=== PATIENT | female | born 1985 | race Hispanic/Latino ===

== ENCOUNTER 2019-01-11 08:52 | Emergency (ER) | payer BC, OTHER ==
[2019-01-11] MEDS ORDERED: NA CHLORIDE 0.9% 1,000 ML ONE (09:35)
[2019-01-11] MEDS ORDERED: MORPHINE 4 MG/ML SYR ONE ×3 (09:35→12:17)
[2019-01-11] MEDS ORDERED: ONDANSETRON 4 MG/2 ML VIAL ONE (09:35)
[2019-01-11 10:22] LABS: Absolute Lymphocytes (CBC) 0.9 K/uL (0.7-4.9); Basophils % 0.8 % (0-1.3); Hematocrit 38.7 % (36.0-45.0); Lymphocytes % 9.8 % (15.3-44.8); MPV 8.1 fL (7.6-11.3); RBC Red Blood Cell Count 4.29 M/uL (3.86-4.86)
[2019-01-11 10:41] LABS: Albumin 3.4 g/dL (3.4-5.0); Bilirubin Direct 0.2 mg/dL (0-0.2); Bilirubin Total 0.6 mg/dL (0.2-1.0); Potassium 3.6 mmol/L (3.5-5.1); Protein, Total 7.5 g/dL (6.4-8.2)
[2019-01-11 10:44] LABS: Urine Blood 2+ (NEG); Urine Glucose NEGATIVE (NEG); Urine Protein 3+ (NEG)
[2019-01-11 11:03] LABS: Urine RBC 20-50 /HPF (NONE SEEN)
[2019-01-11 11:04] LABS: Urine Bacteria LOADED /HPF (<20); Urine Culture Reflex Order REFLEXED
--- NOTE | 2019-01-11 11:23 | RAD REPORT ---
EXAM DESCRIPTION: CT - Abdomen Pelvis W Contrast - 01/11/2019 11:00 am CLINICAL HISTORY: FLANK PAIN, right-side with surgical history of pelvic exenteration, hysterectomy with colostomy and urostomy placement COMPARISON: None. TECHNIQUE: Biphasic, helical CT imaging of the abdomen and pelvis was performed following 100 ml non -ionic IV contrast. No oral contrast. All CT scans are performed using dose optimization technique as appropriate and may include automated exposure control or mA/KV adjustment according to patient size. FINDINGS: No suspicious findings in the lung bases. The liver, spleen, and pancreas show no suspicious findings. Cholecystectomy clips are present. No bi liary tree dilatation. No adrenal abnormality. Dilatation of the left renal pelvis and calices noted with mild dilatation of the ureter down to the ureterostomy anastomosis to bowel. More pronounced dilatation of the right renal pelvis is present wi th slightly greater dilatation of the right ureter down to the small bowel anastomosis. Coreas of the right-side ureters are enhancing and function of the right renal parenchyma is delayed relative to th e left. There is a nonobstructing 7 mm calculus in the left kidney. No obstructing calculi seen. No p arenchymal enhancement abnormality to indicate pyelonephritis. Bladder is absent. No gastric dilatation or wall thickening. No dilatation of large or small bowel. There is a large peristomal hernia at the right side ostomy site. This contains cecum and ascending c olon as well as the terminal ileum. No wall thickening or edema. A few small mesenteric lymph nodes a re present. There is a small peristomal hernia at the left abdomen colostomy site. This is approximat constance 5 cm in diameter and contains a loop of small bowel. No wall thickening or edema. No mass or bul ky lymphadenopathy. Pelvic exenteration changes are present along the floor the pelvis. Approximately 6 x 3 centimeter ar ea of soft tissue is present in the presacral region. Baseline for the patient is unknown. This can b e compared with any prior studies or monitored on follow-up studies is warranted on treatment protoco l. No comparison is available at this facility. No suspicious bony findings. IMPRESSION: No pyelonephritis findings seen. However, patient has asymmetric renal function, delayed on the right, with right greater than left hydronephrosis and hydroureter. The right renal pelvis and right ureter show enhancement of the coreas and could represent ureteritis. Hydronephrosis of each kidney may reflect stricture at the ureter small bowel anastomosis. Large peristomal hernia 10 cm in size at the urostomy site. This contains cecum and ascending colon i s well is terminal ileum. No active bowel process seen. Smaller 5 centimeter peristomal hernia at the left abdomen colostomy site. This contains a loop of sm all bowel. No active bowel abnormality seen. Small right lower quadrant mesenteric lymph nodes near the ileocecal valve. Presacral 6 x 3 mm soft tissue mass. This may all be postsurgical scarring. Ongoing monitoring is nee ded or comparison can be made with prior outside CT imaging to assure no residual or recurrent mass.
[2019-01-11] MEDS ORDERED: CEFTRIAXONE/SWI 1gm 1 GM/10 ML SYR ONE (11:25)
--- NOTE | 2019-01-11 12:16 | ER ---
Nurse's Notes [facility] Name: Kaila Suarez Age: 33 yrs Sex: Female : 1985 Arrival Date: 01/11/2019 Time: 08:59 Bed 7 Private MD: Diagnosis: Urinary tract infection, site not specified-Ureteritis Presentation: 01/11 09:24 Presenting complaint: Patient states: Right low back pain began this morning, urostomy jl7 has had an odor for a few weeks. Transition of care: patient was not received from another setting of care. Onset of symptoms was January 11, 2019. Risk Assessment: Do you want to hurt yourself or someone else? Patient reports no desire to harm self or others. Initial Sepsis Screen: Does the patient meet any 2 criteria? No. Patient's initial sepsis screen is negative. Does the patient have a suspected source of infection? No. Patient's initial sepsis screen is negative. Care prior to arrival: None. 09:24 Method Of Arrival: Ambulatory [facility] 09:24 Acuity: LIBORIO 3 jl7 Triage Assessment: 09:29 General: Appears in no apparent distress. uncomfortable, Behavior is cooperative, jl7 appropriate for age, anxious, crying. Pain: Complains of pain in right low back Pain does not radiate. Pain currently is 6 out of 10 on a pain scale. Quality of pain is described as aching, Pain began 1 hour ago. Is continuous. Neuro: Level of Consciousness is awake, alert, obeys commands, Oriented to person, place, time, situation. Cardiovascular: Patient's skin is warm and dry. Respiratory: Airway is patent Respiratory effort is even, unlabored, Respiratory pattern is regular, symmetrical. GI: Colostomy site is clean and dry. Ostomy appliance is intact. : urostomy noted, appliance in place. Derm: Skin is pink, warm \T\ dry. Musculoskeletal: Range of motion: intact in all extremities. 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 - Social history:: Smoking status: Patient/guardian denies using tobacco. - Ebola Screening: : No symptoms or risks identified at this time. Screenin:08 Abuse screen: Denies threats or abuse. Denies injuries from another. Nutritional jl7 screening: No deficits noted. Tuberculosis screening: No symptoms or risk factors identified. Fall Risk IV access (20 points). Total Murphy Fall Scale indicates No Risk (0-24 pts). Assessment: 09:30 General: See triage assessment. jl7 10:25 Reassessment: Pt reports slight decrease in pain, rated 5/10, ERP notified, see MAR for jl7 orders. 10:34 Reassessment: Pt changed out urostomy bag, clean catch urine sample obtained from new jl7 bag. 12:10 Reassessment: Patient appears in no apparent distress at this time. Patient and/or jl7 family updated on plan of care and expected duration. Pain level reassessed. Patient is alert, oriented x 3, equal unlabored respirations, skin warm/dry/pink. 12:14 Reassessment: ERP at bedside discussing results and POC. jl7 Vital Signs: 09:29 BP 146 / 83; Pulse 69; Resp 16 S; Temp 97.8(TE); Pulse Ox 97% on R/A; Weight 86.18 kg jl7 (R); Pain 6/10; 10:08 BP 117 / 67; Pulse 59; Resp 16 S; Pulse Ox 100% on R/A; jl7 10:20 BP 122 / 69; Pulse 61; Resp 16 S; Pulse Ox 100% on R/A; Pain 5/10; jl7 10:32 Pain 5/10; jl7 10:40 Pain 3/10; jl7 12:10 BP 115 / 64; Pulse 56; Resp 16 S; Pulse Ox 96% on R/A; jl7 ED Course: 08:59 Patient arrived in ED. mr 09:13 Gómez Hung, LAMONT is Primary Nurse. jl7 09:16 Hugh Nettles NP is PHCP. pm1 09:16 Luis Alberto Bauman MD is Attending Physician. pm1 09:27 Triage completed. jl7 09:29 Arm band placed on right wrist. jl7 09:50 Missed attempt(s): 22 gauge in left antecubital area. jb1 10:07 Initial lab(s) drawn, by me, sent to lab. Inserted saline lock: 22 gauge in right upper jl7 arm, using aseptic technique. Blood collected. 10:08 Patient has correct armband on for positive identification. Bed in low position. Call jl7 light in reach. Side rails up X 1. Pulse ox on. NIBP on. 10:35 Urine collected: clean catch specimen, cloudy, sediment noted. jl7 11:02 CT Abd/Pelvis - IV Contrast Only In Process Unspecified. EDMS 13:02 No provider procedures requiring assistance completed. IV discontinued, intact, iw bleeding controlled, No redness/swelling at site. Pressure dressing applied. Administered Medications: 10:05 Drug: Zofran 4 mg Route: IVP; Site: right upper arm; jl7 10:32 Follow up: Response: No adverse reaction; Nausea is decreased jl7 10:05 Drug: NS 0.9% 1000 ml Route: IV; Rate: 1000 ml; Site: right upper arm; jl7 11:30 Follow up: IV Status: Completed infusion iw 10:07 Drug: morphine 4 mg Route: IVP; Site: right upper arm; jl7 10:32 Follow up: Pain 5/10 Adult; Response: No adverse reaction; Pain is decreased jl7 10:25 Drug: morphine 4 mg Route: IVP; Site: right upper arm; jl7 10:40 Follow up: Pain 3/10 Adult; Response: No adverse reaction; Pain is decreased jl7 11:28 Drug: Rocephin 1 grams Route: IV; Rate: calculated rate; Site: right upper arm; jl7 11:31 Follow up: Response: No adverse reaction; IV Status: Completed infusion jl7 12:21 Drug: morphine 4 mg Route: IVP; Site: right upper arm; jl7 Outcome: 12:16 Discharge ordered by MD. pm1 13:02 Discharged to home ambulatory, with family. iw 13:02 Condition: good 13:02 Discharge instructions given to patient, family, Instructed on discharge instructions, follow up and referral plans. Demonstrated understanding of instructions, follow-up care, Prescriptions given X 2. 13:02 Patient left the ED. iw Addendum: 01/13/2019 07:39 Addendum: Culture Results: Positive urine culture. No further action required. Bacteria e b sensitive to prescribed antibiotic. Signatures: Dispatcher [employer] Chris Mclean jb1 Ronald, Shelbie mr Marsha Medeiros, RN RN Hugh Puentes NP HARD METALS ENGRAVER HAND pm1 Gómez Hung RN RN jl7 Marilu Lemus
--- NOTE | 2019-01-11 12:17 | EDPHYS ---
Physician Documentation [facility] Name: Kaila Suarez Age: 33 yrs Sex: Female : 1985 Arrival Date: 01/11/2019 Time: 08:59 Bed 7 Private MD: LOKI Physician Luis Alberto Bauman HPI: 01/11 09:49 This 33 yrs old Female presents to ER via Ambulatory with complaints of Right pm1 Low Back Pain. 09:49 The patient presents with pain that is acute, with no known mechanism of injury. The pm1 symptoms are located in the right low back. Onset: The symptoms/episode began/occurred this morning. The pain does not radiate. Associated signs and symptoms: The patient has no apparent associated signs or symptoms, Pertinent negatives: abdominal pain, fever, headache, nausea, numbness, tingling, vomiting, diarrhea. The problem was sustained from unknown cause, Urine from urostomy tube with foul odor for 2 weeks. Modifying factors: The patient symptoms are alleviated by nothing, the patient symptoms are aggravated by nothing. The patient has not recently seen a physician, and does not have an established primary care provider, only sees oncologist at [facility]. Last seen 3 months ago. 09:49 Patient with history of cervical cancer resulting in total hysterectomy, cystectomy, pm1 urostomy, and colostomy. 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 - Social history:: Smoking status: Patient/guardian denies using tobacco. - Ebola Screening: : No symptoms or risks identified at this time. ROS: 09:49 Constitutional: Negative for fever, chills, and weight loss, Eyes: Negative for injury, pm1 pain, redness, and discharge, ENT: Negative for injury, pain, and discharge, Neck: Negative for injury, pain, and swelling, Cardiovascular: Negative for chest pain, palpitations, and edema, Respiratory: Negative for shortness of breath, cough, wheezing, and pleuritic chest pain, Abdomen/GI: Negative for abdominal pain, nausea, vomiting, diarrhea, and constipation. 09:49 : Negative for injury, bleeding, discharge, and swelling, MS/Extremity: Negative for injury and deformity, Skin: Negative for injury, rash, and discoloration, Neuro: Negative for headache, weakness, numbness, tingling, and seizure. 09:49 Back: Positive for flank pain, on the right. Exam: 09:49 Constitutional: This is a well developed, well nourished patient who is awake, alert, pm1 and in no acute distress. Head/Face: Normocephalic, atraumatic. Neck: Trachea midline, no thyromegaly or masses palpated, and no cervical lymphadenopathy. Supple, full range of motion without nuchal rigidity, or vertebral point tenderness. No Meningismus. Chest/axilla: Normal chest wall appearance and motion. Nontender with no deformity. No lesions are appreciated. Cardiovascular: Regular rate and rhythm with a normal S1 and S2. No gallops, murmurs, or rubs. Normal PMI, no JVD. No pulse deficits. Respiratory: Lungs have equal breath sounds bilaterally, clear to auscultation and percussion. No rales, rhonchi or wheezes noted. No increased work of breathing, no retractions or nasal flaring. 09:49 Skin: Warm, dry with normal turgor. Normal color with no rashes, no lesions, and no evidence of cellulitis. MS/ Extremity: Pulses equal, no cyanosis. Neurovascular intact. Full, normal range of motion. 09:49 Abdomen/GI: Inspection: abdomen appears normal, Bowel sounds: normal, Palpation: abdomen is soft and non-tender. 09:49 Back: pain, that is mild, of the right low back, normal spinal alignment noted. 09:49 Neuro: Orientation: is normal, Motor: is normal, moves all fours. Vital Signs: 09:29 BP 146 / 83; Pulse 69; Resp 16 S; Temp 97.8(TE); Pulse Ox 97% on R/A; Weight 86.18 kg jl7 (R); Pain 6/10; 10:08 BP 117 / 67; Pulse 59; Resp 16 S; Pulse Ox 100% on R/A; jl7 10:20 BP 122 / 69; Pulse 61; Resp 16 S; Pulse Ox 100% on R/A; Pain 5/10; jl7 10:32 Pain 5/10; jl7 10:40 Pain 3/10; jl7 12:10 BP 115 / 64; Pulse 56; Resp 16 S; Pulse Ox 96% on R/A; jl7 MDM: 09:16 Patient medically screened. pm1 09:54 Data reviewed: vital signs. Data interpreted: Pulse oximetry: on room air is 97 %. pm1 Interpretation: normal. 12:14 Counseling: I had a detailed discussion with the patient and/or guardian regarding: the pm1 historical points, exam findings, and any diagnostic results supporting the discharge/admit diagnosis, lab results, radiology results, the need for outpatient follow up, to return to the emergency department if symptoms worsen or persist or if there are any questions or concerns that arise at home. 01/11 09:24 Order name: Basic Metabolic Panel; Complete Time: 11:03 pm1 01/11 09:24 Order name: CBC with Diff; Complete Time: 10:28 pm1 01/11 09:24 Order name: Creatinine for Radiology; Complete Time: 11:03 pm1 01/11 09:24 Order name: Hepatic Function; Complete Time: 11:03 pm1 01/11 09:24 Order name: Lipase; Complete Time: 11:03 pm1 01/11 09:24 Order name: Urine Microscopic Only; Complete Time: 11:15 pm1 01/11 09:24 Order name: CT Abd/Pelvis - IV Contrast Only; Complete Time: 11:34 pm1 01/11 10:33 Order name: Urine Dipstick--Ancillary (enter results); Complete Time: 11:03 bd 01/11 11:07 Order name: Urine Culture EDMS 01/11 09:24 Order name: IV Saline Lock; Complete Time: 10:09 pm1 01/11 09:24 Order name: Labs collected and sent; Complete Time: 10:09 pm1 01/11 09:24 Order name: Urine Dipstick-Ancillary (obtain specimen); Complete Time: 10:31 pm1 Administered Medications: 10:05 Drug: Zofran 4 mg Route: IVP; Site: right upper arm; jl7 10:32 Follow up: Response: No adverse reaction; Nausea is decreased jl7 10:05 Drug: NS 0.9% 1000 ml Route: IV; Rate: 1000 ml; Site: right upper arm; jl7 11:30 Follow up: IV Status: Completed infusion iw 10:07 Drug: morphine 4 mg Route: IVP; Site: right upper arm; jl7 10:32 Follow up: Pain 5/10 Adult; Response: No adverse reaction; Pain is decreased jl7 10:25 Drug: morphine 4 mg Route: IVP; Site: right upper arm; jl7 10:40 Follow up: Pain 3/10 Adult; Response: No adverse reaction; Pain is decreased jl7 11:28 Drug: Rocephin 1 grams Route: IV; Rate: calculated rate; Site: right upper arm; jl7 11:31 Follow up: Response: No adverse reaction; IV Status: Completed infusion jl7 12:21 Drug: morphine 4 mg Route: IVP; Site: right upper arm; jl7 Disposition: 18:29 Co-signature as Attending Physician, Luis Alberto Bauman MD Did not see or evaluate patient. ps1 Chart signed for administrative purposes. Not an endorsement of care provided. . Disposition: 01/11/19 12:16 Discharged to Home. Impression: Urinary tract infection, site not specified - Ureteritis. - Condition is Stable. - Discharge Instructions: Urinary Tract Infection, Adult. - Prescriptions for Zofran 4 mg Oral Tablet - take 1 tablet by ORAL route every 8 hours As needed; 20 tablet. Tramadol 50 mg Oral Tablet - take 1 tablet by ORAL route every 8 hours As needed as needed; 12 tablet. Bactrim DS 800- 160 mg Oral Tablet - take 1 tablet by ORAL route every 12 hours for 10 days; 20 tablet. - Work release form, Family Work Release, Medication Reconciliation Form, Thank You Letter, Antibiotic Education, Prescription Opioid Use form. - Follow up: Emergency Department; When: As needed; Reason: Worsening of condition. Follow up: Private Physician; When: 2 - 3 days; Reason: Recheck today's complaints, Continuance of care, Re-evaluation by your physician. - Problem is new. - Symptoms have improved. Signatures: Dispatcher [employer] EDMS Marsha Medeiros RN RN iw Hugh Nettles NP MATERIAL PREPARATION WORKER pm1 Gómez Hung RN RN jl7 Singer, Phillip, MD MD ps1 Corrections: (The following items were deleted from the chart) 13:02 12:16 01/11/2019 12:16 Discharged to Home. Impression: Urinary tract infection, site iw not specified - Ureteritis. Condition is Stable. Forms are Medication Reconciliation Form, Thank You Letter, Antibiotic Education, Prescription Opioid Use. Follow up: Emergency Department; When: As needed; Reason: Worsening of condition. Follow up: Private Physician; When: 2 - 3 days; Reason: Recheck today's complaints, Continuance of care, Re-evaluation by your physician. Problem is new. Symptoms have improved. pm1
[2019-01-11 13:21] VITALS: TEMP 97.8
[2019-01-11 13:28] VITALS: BP 115/64; O2SAT 96
== END 2019-01-11 13:02 | disposition home or self-care (01) ==
LOC: ER 08:52
DX: N39.0 Urinary tract infection, site not specified (principal); N28.89 Other specified disorders of kidney and ureter; Z85.41 Personal history of malignant neoplasm of cervix uteri; Z88.5 Allergy status to narcotic agent
CPT/HCPCS: 96361; 87088; 85025; 87086; 80048; 36415; 80076; 83690; 74177; 96375; 96374; 99284; Q9967; J0696; J7030; J2405; 81003; 81015; 87077; 87186

== ENCOUNTER 2019-05-15 13:59 | Emergency (ER) | payer BC ==
[2019-05-15 15:13] LABS: Absolute Lymphocytes (CBC) 0.7 K/uL (0.7-4.9); Basophils % 0.5 % (0-1.3); Hematocrit 41.1 % (36.0-45.0); Lymphocytes % 4.9 % (15.3-44.8); MPV 7.8 fL (7.6-11.3); RBC Red Blood Cell Count 4.58 M/uL (3.86-4.86)
[2019-05-15 15:25] LABS: Urine Blood 3+ (NEG); Urine Glucose NEGATIVE (NEG); Urine Protein 2+ (NEG); Urine Specific Gravity 1.015 (1.005-1.030); Urine pH 6.5 (5.0-7.0)
[2019-05-15 15:26] LABS: Potassium 3.8 mmol/L (3.5-5.1)
[2019-05-15 15:29] LABS: Urine Bacteria >50 /HPF (<20); Urine Culture Reflex Order REFLEXED
[2019-05-15] MEDS ORDERED: FENTANYL CITR 100 MCG/2 ML ONE (15:34)
[2019-05-15] MEDS ORDERED: NA CHLORIDE 0.9% 1,000 ML ONE (15:34)
[2019-05-15] MEDS ORDERED: ONDANSETRON 4 MG/2 ML VIAL ONE (15:34)
[2019-05-15 15:36] LABS: Blood Morphology Comment NOT SEEN (NOT SEEN); Platelet Estimate ADEQ; Urine White Blood Cell Casts OK
--- NOTE | 2019-05-15 15:45 | ER ---
Nurse's Notes [facility] Name: Kaila Suarez Age: 34 yrs Sex: Female : 1985 Arrival Date: 05/15/2019 Time: 14:01 Bed 23 Private MD: Diagnosis: Acute tubulo-interstitial nephritis Presentation: 05/14 14:35 Chief complaint: Patient states: Left back pain since this morning, hx of urostomy, no iw fever, no vomiting. Coronavirus screen: Patient denies fever greater than 100.4F, cough, shortness of breath, or difficulty breathing. Proceed with normal triage process. Ebola Screen: Patient negative for fever greater than or equal to 101.5 degrees Fahrenheit, and additional compatible Ebola Virus Disease symptoms Patient denies exposure to infectious person. Patient denies travel to an Ebola-affected area in the 21 days before illness onset. No symptoms or risks identified at this time. 14:35 Method Of Arrival: Ambulatory iw 14:35 Acuity: LIBORIO 3 iw 14:45 Initial Sepsis Screen: Does the patient meet any 2 criteria? No. Patient's initial iw sepsis screen is negative. Does the patient have a suspected source of infection? No. Patient's initial sepsis screen is negative. Risk Assessment: Do you want to hurt yourself or someone else? Patient reports no desire to harm self or others. Triage Assessment: 15:10 General: Appears in no apparent distress. Behavior is calm. Musculoskeletal: Range of iw motion: intact in all extremities. Historical: - Allergies: 14:48 Codeine; iw 14:48 Hydrocodone-Acetaminophen; iw - PMHx: 14:48 cervical cancer; iw - PSHx: 14:48 Complete Pelvic Exoneration; Urostomy; Colostomy; iw - Immunization history:: Adult Immunizations not up to date. - Social history:: Smoking status: Patient denies any tobacco usage or history of. Screenin:40 Abuse screen: Denies threats or abuse. Denies injuries from another. Nutritional iw screening: No deficits noted. Tuberculosis screening: No symptoms or risk factors identified. Fall Risk None identified. Assessment: 15:00 General: Appears in no apparent distress. Behavior is cooperative, appropriate for age. iw General: Denies fever. Pain: Complains of pain in left flank. Neuro: Level of Consciousness is awake, alert, obeys commands, Oriented to person, place, Moves all extremities. Cardiovascular: Patient's skin is warm and dry. Respiratory: Respiratory effort is even, unlabored, Respiratory pattern is regular. GI: Patient currently denies vomiting. : Urine is cloudy, pt has urostomy bag in place. Derm: Skin is intact, is healthy with good turgor. Musculoskeletal: Range of motion: intact in all extremities. Vital Signs: 14:19 BP 122 / 73; Pulse 80; Resp 20; Temp 97.8(O); Pulse Ox 100% ; lt1 16:02 BP 117 / 72; Pulse 74; Resp 16; Temp 98.1(O); Pulse Ox 98% on R/A; lt1 ED Course: 14:01 Patient arrived in ED. as 14:04 Haley Sanchez FNP-C is [facility]. kb 14:04 Royn aGrdner MD is Attending Physician. kb 14:22 Call light in reach. Door closed. Lights dimmed. Warm blanket given. lt1 14:33 Marsha Medeiros, RN is Primary Nurse. iw 14:46 Triage completed. iw 15:21 Initial lab(s) drawn, by me, sent to lab. Urine collected: urostomy bag - urine cloudy. lt1 Inserted saline lock: 22 gauge in right forearm, using aseptic technique. 15:22 Warm blanket given. lt1 15:24 Urine Microscopic Only Sent. lt1 16:41 No provider procedures requiring assistance completed. IV discontinued, intact, iw bleeding controlled, No redness/swelling at site. Pressure dressing applied. 17:57 Arm band placed on right wrist. iw Administered Medications: 15:25 Drug: NS 0.9% 1000 ml Route: IV; Rate: 1000 ml; Site: right forearm; ls4 15:25 Drug: fentaNYL (PF) 25 mcg Route: IVP; Site: right antecubital; ls4 15:25 Drug: Zofran (Ondansetron) 4 mg Route: IVP; Site: right forearm; ls4 15:51 Drug: Rocephin 1 grams Route: IV; Rate: calculated rate; Site: right forearm; ls4 15:58 Drug: morphine 4 mg Route: IVP; Site: right antecubital; ls4 Outcome: 15:44 Discharge ordered by . kb 16:41 Discharged to home ambulatory. iw 16:41 Condition: good 16:41 Discharge instructions given to patient, Instructed on discharge instructions, follow up and referral plans. medication usage, Demonstrated understanding of instructions, follow-up care, medications, Prescriptions given X 3. 16:42 Patient left the ED. ls4 Signatures: Haley Sanchez, BUFFER MACHINE-C BUFFER MACHINE-Addie Lucas Irene, RN RN iw Lary Hernandez RN RN ls4 Felicia Santillan lt1 Corrections: (The following items were deleted from the chart) 18:48 16:41 Discharge instructions given to patient, Instructed on discharge instructions, iw follow up and referral plans. medication usage, Demonstrated understanding of instructions, follow-up care, medications, Prescriptions given X 1, iw
--- NOTE | 2019-05-15 15:46 | EDPHYS ---
Physician Documentation [facility] Name: Kaila Suarez Age: 34 yrs Sex: Female : 1985 Arrival Date: 05/15/2019 Time: 14:01 Bed 23 Private MD: ED Physician Rony Gardner HPI: 05/14 15:15 This 34 yrs old Female presents to ER via Ambulatory with complaints of Back kb Pain. 15:15 The patient has experienced a previous episode. The patient has not recently seen a kb physician. 15:16 The patient complains of pain in the left flank. The pain does not radiate. Onset: The kb symptoms/episode began/occurred this morning. Modifying factors: The symptoms are alleviated by nothing. the symptoms are aggravated by palpation/percussion. Associated signs and symptoms: The patient has no apparent associated signs or symptoms. Severity of pain: At its worst the pain was moderate in the emergency department the pain is unchanged. Pt has history of total pelvic exenteration due to cervical cancer with placement of urostomy and colonostomy. Historical: - Allergies: 14:48 Codeine; iw 14:48 Hydrocodone-Acetaminophen; iw - PMHx: 14:48 cervical cancer; iw - PSHx: 14:48 Complete Pelvic Exoneration; Urostomy; Colostomy; iw - Immunization history:: Adult Immunizations not up to date. - Social history:: Smoking status: Patient denies any tobacco usage or history of. ROS: 15:13 Constitutional: Negative for fever, chills, and weight loss, ENT: Negative for injury, kb pain, and discharge, Neck: Negative for injury, pain, and swelling, Cardiovascular: Negative for chest pain, palpitations, and edema, Respiratory: Negative for shortness of breath, cough, wheezing, and pleuritic chest pain, Abdomen/GI: Negative for abdominal pain, nausea, vomiting, diarrhea, and constipation, : Negative for injury, bleeding, discharge, and swelling, MS/Extremity: Negative for injury and deformity, Skin: Negative for injury, rash, and discoloration, Neuro: Negative for headache, weakness, numbness, tingling, and seizure. 15:13 Back: Positive for flank pain, on the left. Exam: 15:13 Constitutional: This is a well developed, well nourished patient who is awake, alert, kb and in no acute distress. Head/Face: Normocephalic, atraumatic. ENT: Nares patent. No nasal discharge, no septal abnormalities noted. Tympanic membranes are normal and external auditory canals are clear. Oropharynx with no redness, swelling, or masses, exudates, or evidence of obstruction, uvula midline. Mucous membranes moist. Neck: Trachea midline, no thyromegaly or masses palpated, and no cervical lymphadenopathy. Supple, full range of motion without nuchal rigidity, or vertebral point tenderness. No Meningismus. Chest/axilla: Normal chest wall appearance and motion. Nontender with no deformity. No lesions are appreciated. Cardiovascular: Regular rate and rhythm with a normal S1 and S2. No gallops, murmurs, or rubs. Normal PMI, no JVD. No pulse deficits. Respiratory: Lungs have equal breath sounds bilaterally, clear to auscultation and percussion. No rales, rhonchi or wheezes noted. No increased work of breathing, no retractions or nasal flaring. Skin: Warm, dry with normal turgor. Normal color with no rashes, no lesions, and no evidence of cellulitis. MS/ Extremity: Pulses equal, no cyanosis. Neurovascular intact. Full, normal range of motion. Neuro: Awake and alert, GCS 15, oriented to person, place, time, and situation. Cranial nerves II-XII grossly intact. Motor strength 5/5 in all extremities. Sensory grossly intact. Cerebellar exam normal. Normal gait. 15:13 Abdomen/GI: colostomy, urostomy. 15:13 Back: pain, that is moderate, ROM is normal, normal spinal alignment noted, CVA tenderness, that is moderate, is noted on the left. Vital Signs: 14:19 BP 122 / 73; Pulse 80; Resp 20; Temp 97.8(O); Pulse Ox 100% ; lt1 16:02 BP 117 / 72; Pulse 74; Resp 16; Temp 98.1(O); Pulse Ox 98% on R/A; lt1 MDM: 14:09 Patient medically screened. kb 15:15 Data reviewed: vital signs, nurses notes. Data interpreted: Pulse oximetry: on room air kb is 100 %. Interpretation: normal. 15:42 Counseling: I had a detailed discussion with the patient and/or guardian regarding: the kb historical points, exam findings, and any diagnostic results supporting the discharge/admit diagnosis, lab results, radiology results, the need for outpatient follow up, a family practitioner, to return to the emergency department if symptoms worsen or persist or if there are any questions or concerns that arise at home. 15:43 Data reviewed: I have discussed the patient's presentation/case with the attending Emergency Department Physician;. ED course: Pt educated to come back for inability to tolerate medications, increased pain, fever, vomiting, or any other problems. Verbal understanding received. 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 05/14 14:09 Order name: Urine Microscopic Only; Complete Time: 15:31 kb 05/14 14:33 Order name: Basic Metabolic Panel; Complete Time: 15:31 kb 05/14 14:33 Order name: CBC with Diff; Complete Time: 15:38 kb 05/14 15:09 Order name: Urine Dipstick--Ancillary (enter results); Complete Time: 15:27 eb 05/14 15:22 Order name: CBC Smear Scan; Complete Time: 15:38 EDMS 05/14 15:29 Order name: Urine Culture [facility] 05/14 14:09 Order name: Urine Dipstick-Ancillary (obtain specimen); Complete Time: 15:24 kb 05/14 14:33 Order name: IV Saline Lock; Complete Time: 15:24 kb 05/14 14:33 Order name: Labs collected and sent; Complete Time: 15:24 kb Administered Medications: 15:25 Drug: NS 0.9% 1000 ml Route: IV; Rate: 1000 ml; Site: right forearm; ls4 15:25 Drug: fentaNYL (PF) 25 mcg Route: IVP; Site: right antecubital; ls4 15:25 Drug: Zofran (Ondansetron) 4 mg Route: IVP; Site: right forearm; ls4 15:51 Drug: Rocephin 1 grams Route: IV; Rate: calculated rate; Site: right forearm; ls4 15:58 Drug: morphine 4 mg Route: IVP; Site: right antecubital; ls4 Disposition: 18:13 Co-signature as Attending Physician, Rony Gardner MD I agree with the assessment and kdr plan of care. Disposition: 05/15/19 15:44 Discharged to Home. Impression: Acute tubulo-interstitial nephritis. - Condition is Stable. - Discharge Instructions: Pyelonephritis, Adult, Pozs-ex-Oxod. - Prescriptions for Zofran 4 mg Oral Tablet - take 1 tablet by ORAL route every 6 hours As needed; 20 tablet. Tramadol 50 mg Oral Tablet - take 1 tablet by ORAL route every 8 hours as needed; 12 tablet. cefpodoxime 200 mg Oral Tablet - take 1 tablet by ORAL route every 12 hours with food; 20 tablet. - Medication Reconciliation Form, Thank You Letter, Antibiotic Education, Prescription Opioid Use form. - Follow up: Emergency Department; When: As needed; Reason: Worsening of condition. Follow up: Private Physician; When: 2 - 3 days; Reason: Recheck today's complaints, Continuance of care, Re-evaluation by your physician. Signatures: Dispatcher [employer] EDMS Haley Sanchez, PAPER BAG MACHINE OPERATOR-C PAPER BAG MACHINE OPERATOR-Ckb Rony Gardner MD MD kdr Williams, Irene, RN RN iw Lary Hernandez RN RN ls4 Corrections: (The following items were deleted from the chart) 16:42 15:44 05/15/2019 15:44 Discharged to Home. Impression: Acute tubulo-interstitial ls4 nephritis. Condition is Stable. Forms are Medication Reconciliation Form, Thank You Letter, Antibiotic Education, Prescription Opioid Use. Follow up: Emergency Department; When: As needed; Reason: Worsening of condition. Follow up: Private Physician; When: 2 - 3 days; Reason: Recheck today's complaints, Continuance of care, Re-evaluation by your physician. kb
[2019-05-15] MEDS ORDERED: MORPHINE 4 MG/ML SYR ONE (15:53)
[2019-05-15] MEDS ORDERED: CEFTRIAXONE/SWI 1gm 1 GM/10 ML SYR ONE (15:54)
[2019-05-15 16:58] VITALS: BP 117/72; TEMP 98.1; O2SAT 98
== END 2019-05-15 16:42 | disposition home or self-care (01) ==
LOC: ER 13:59
DX: N10 Acute pyelonephritis (principal); Z88.6 Allergy status to analgesic agent; Z85.41 Personal history of malignant neoplasm of cervix uteri
CPT/HCPCS: 87088; 85025; 87086; 80048; 36415; 87077; 87186; 99284; J3010; J0696; J7030; J2405; 81003; 81015

== ENCOUNTER 2021-10-30 20:00 | Emergency (ER) | payer OTHER ==
--- OUTSIDE RECORDS SUMMARY | 2021-10-30 20:08 | XMS REPORT | Clinical Summary ---
:1985 Author Organization [facility] MD [facility] Address [address] [place] [address] Care Team Providers Name Role Phone Chapincito Daly MD Unavailable Chapincito Dayl MD Unavailable Jamal Vaca MD Primary Care Provider Allergies Active Allergy Reactions Severity Noted Date Comments Codeine Hives Low 11/30/2017 Hydrocodone Hives 02/22/2018 Cephalexin Other (See Comments) High 02/27/2021 Neutrop enia Rash (concerns for DRESS Feb 2021) Medications Medication Sig Dispensed Refills Start Date End Date Status hydrocortisone 2.5% in Apply topically 454 g 0 03/01/2021 Active EUCERIN cream to affected (AMB-CMPD)Indications: area(s) twice Rash daily. Apply to face, groin, & inguinal folds Additional Information Patient not taking. Reason: No longer taking, Reported on 06/17/2021 triamcinolone (KENALOG) 0.1% Apply topically to 453.6 g 0 Active creamIndications: Rash affected area(s) twice daily. Additional Information Patient not taking. Reason: No longer taking, Reported on 06/17/2021 estrogens, conjugated, Take 1 tablet 30 tablet 2 06/17/2021 Active (Premarin) 0.625 mg (0.625 mg) by tabletIndications: mouth daily. Malignant neoplasm of overlapping sites of cervix uteri, Menopausal symptom nitrofurantoin Take 1 capsule 90 capsule 0 06/19/2021 Active monohyd/m-cryst (100 mg) by (MACROBID) 100 mg mouth daily. capsuleIndications: Malignant neoplasm of overlapping sites of cervix uteri, Recurrent urinary tract infection estradioL (Estrace) 0.5 Take 2 tablets 180 tablet 3 10/17/202110/17 Active mg tabletIndications: (1 mg) by Malignant neoplasm of mouth daily. overlapping sites of cervix uteri HYDROmorphone (Dilaudid) Take 1 tablet 30 tablet 0 01/11/202011/05 Discontinued 2 mg tabletIndications: (2 mg) by (Duplicate order) Left flank pain mouth every 4 (four) hours as needed for severe pain. HYDROmorphone (Dilaudid) Take 1 tablet 30 tablet 0 06/13/202011/24 Discontinued 2 mg tabletIndications: (2 mg) by Malignant neoplasm of mouth every 3 overlapping sites of (three) hours cervix uteri as needed for severe pain. ondansetron (Zofran ODT) Dissolve 1 30 tablet 0 06/13/2020 Discontinued 8 mg disintegrating tablet (8 mg) tabletIndications: on the tongue Malignant neoplasm of every 6 (six) overlapping sites of hours as cervix uteri needed for vomiting. promethazine (PHENERGAN) Take 1 tablet 30 tablet 0 06/13/202002/25 Discontinued 12.5 mg (12.5 mg) tabletIndications: mouth every 6 Malignant neoplasm of (six) hours as overlapping sites of needed for cervix uteri nausea. cefPODoxime (VANTIN) 100 Take 1 tablet 14 tablet 0 10/06/202011/05 Discontinued mg tabletIndications: (100 mg) (Therapy Urinary tract infectious mouth twice completed) disease daily. ciprofloxacin HCl Take 1 tablet 20 tablet 0 11/24/202002/25 Discontinued (Cipro) 500 mg (500 mg) tabletIndications: mouth twice Pyelonephritis daily. HYDROmorphone (Dilaudid) Take 1 tablet 30 tablet 0 11/24/202002/25 Discontinued 4 mg tabletIndications: (4 mg) by Pyelonephritis mouth every 6 (six) hours as needed for moderate pain. ondansetron (Zofran ODT) Dissolve 1 15 tablet 0 11/24/2020 Discontinued 4 mg disintegrating tablet (4 mg) tabletIndications: on the tongue Pyelonephritis every 4 (four) hours as needed for nausea. cephalexin (Keflex) 500 Take 1 capsule 30 capsule 0 02/13/202102/26 Discontinued mg capsuleIndications: (500 mg) by (Stop Taking at Urinary tract infection mouth 3 Discharge) (three) times a day. ondansetron (Zofran) 4 Take 1 tablet 15 tablet 0 02/13/2021 Discontinued mg tabletIndications: (4 mg) by Urinary tract infection mouth every 8 (eight) hours as needed for nausea. traMADol (Ultram) 50 mg Take 1 tablet 15 tablet 0 02/13/2021 0 02/25 Discontinued tabletIndications: (50 mg) by Urinary tract infection mouth every 8 (eight) hours as needed for moderate pain. triamcinolone (KENALOG) Apply 1 g 0 02/26/202103/01 Discontinued 0.1% creamIndications: topically to (Stop Taking at Liver function tests affected Discharge) abnormal area(s) twice daily. Apply to upper upper arms estradioL (Estrace) 0.5 Take 2 tablets 60 tablet 11 07/01/202110/17 Discontinued mg tabletIndications: (1 mg) by (Reorder) Malignant neoplasm of mouth daily. overlapping sites of cervix uteri Active Problems Patient Care Coordination Note Formatting of this note might be differe nt from the original. .cov Problem Noted Date Rash 03/01/2021 Liver function tests abnormal 02/25/2021 Headache 02/25/2021 Chills without fever 02/25/2021 Parastomal hernia 11/03/2020 Hydronephrosis with ureteral stricture 2020 Overview: Added automatically from request for cedrick leony [id number] Recurrent urinary tract infection 02/27/2018 Adjustment disorder with mixed anxiety and depressed m ood 02/26/2018 Colostomy present 02/19/2018 Urostomy present 02/19/2018 Ventral hernia 02/18/2018 Menopausal symptom 11/30/2017 Hypokalemia 05/04/2017 Back pain 04/15/2017 Malignant neoplasm of overlapping sites of cervix uter i 03/30/2017 Cancer Staging: Clinical stage from 04/06: Stage IIB (Primary) - Signed by Armando Hernadez MD on 04/06/2017 Last Assessment & Plan: Formatting of th is note might be different from the original. Exam is normal today. We will obtain a P ETCT. We will reach out to Dr. Leyva to discu ss management of urostomy and recurrent UTIs. Patient will return in 6 months for foll ow-up. Ms Daniela will contact us if she develops any new or concerning symptoms, including but not limited to abdominal/pelvic pain, change in bowel habits, patino ge in urinary habits, or vaginal spottin g/bleeding. 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 Slow transit constipation Resolved Problems Problem Noted Date Resolved Date Leukopenia 02/25/2021 03/01/2021 Neutropenia 02/25/2021 03/01/2021 Small bowel obstruction 02/16/2018 02/25/2021 Encounters Date Type Specialty Care Team Description 10/17/2021 Orders Only Gynecology Ping Tang Malignant neop lasm of L, TRACK PATROL overlapping sit es of cervix uteri 07/01/2021 Orders Only Gynecology Ping Tang Malignant neop lasm of L, TRACK PATROL overlapping sit es of cervix uteri (P rimary Dx) 07/01/2021 Telephone Gynecology Lio, missed call (pamela Berry MD returning misse d call from Ping Sellers on. please assist) 06/27/2021 Hospital Encounter Radiology Regis, Malignant neoplasm of Amelita B., SENIOR CYBER INTELLIGENCE ANALYST overlapping s ites of cervix uteri 06/27/2021 Travel 06/25/2021 Orders Only Gynecology Regis Malignant neopl asm of Amelita B., SENIOR CYBER INTELLIGENCE ANALYST overlapping s ites of cervix uteri (P rimary Dx) 06/25/2021 Orders Only Gynecology Trista Stacy., SENIOR CYBER INTELLIGENCE ANALYST 06/19/2021 Orders Only Ping Milner Malignant neop lasm of overlapping sites of cervix uteri (Primary Dx); L, TRACK PATROL Recurrent urina ry tract infection 06/17/2021 Office Visit Gynecology Lio, Malignant neopl asm of overlapping sites of cervix uteri (Primary Dx); MD Jamal Menopausal symp mandeep; Recurrent urina ry tract infection 06/17/2021 Travel 05/27/2021 Orders Only Gynecology Regis, Malignant neopl asm of Amelita B., SENIOR CYBER INTELLIGENCE ANALYST overlapping s ites of cervix uteri (P rimary Dx) 05/21/2021 Telephone Gynecology Lio, side effects (P t is MD Jamal sad she is feel ing really off sinc e she stopped taking her control a nd she wants to be anju led back by a nurse as soon as possibl e. ); missed call (Pt missed call from michelle tony on the team. Hao e call her back. ) 03/08/2021 Hospital Encounter Lab Ramirez Vaca MD 03/02/2021 Orders Only Dermatology Hollie Rodríguez Morbilliform e addison Carpenter MD (Primary Dx) 03/01/2021 Hospital Encounter Head and Neck Ramirez Barnhart (Pr imary Dx); Surgery MD Hugh Allergic reaction; Alison, Hypokalemia; Edison Reyes MD Nausea and vo miting; Hypophosphatemi a 03/01/2021 Travel 02/27/2021 Orders Only Gynecology Charles Warren Liver functio n tests abnormal (Primary Dx); MD Delmer Other drug-nicole hannah agranulocytosis 02/25/2021 Travel 02/24/2021 Emergency Gynecology Priya, Liver function tests - MD Raza abnormal (Primary Dx) 02/26/2021 Gopal Cruz MD Ramirez, Pedro, MD 02/24/2021 Travel 02/13/2021 Emergency Emergency Medicine [place], Urinary t ract infection (Primary Dx); MD Mckay Hydronephrosis with ureteral stricture; Chris Love, Malignant neopl asm of overlapping sites of cervix uteri 02/13/2021 Travel 01/16/2021 Infusion Infusion Services Lio, Urinary tr act MD Jamal infectious dise ase (Primary Dx) 01/16/2021 Travel 01/14/2021 Orders Only Gynecology Nadege Lynn PA 01/14/2021 Telephone Gynecology Nadege Lynn PA 01/14/2021 Orders Only Gynecology Dariel, Urinary tract Ana, infectious dise ase PharmD (Primary Dx) 11/24/2020 Emergency Emergency Medicine Chris Love, Pyeloneph ritis (Primary Dx); Urinary tract i nfectious disease; Colostomy prese nt; Urostomy presen t; Malignant neopl asm of overlapping sites of cervix uteri 11/24/2020 Travel 11/13/2020 Telemedicine Urology Gordon, Hydronephrosis, not otherwise specified (Primary Dx); Jonel Ho IV, Back pain; Urostomy presen t; Hydronephrosis with ureteral stricture 11/13/2020 Telephone Genitourinary Shanice, Oncology Lisa Carpenter RN 11/03/2020 Hospital Encounter Leukemia Wattana, Small bow el obstruction (Primary Dx); - MD Idania Abdominal pain; 11/05/2020 Lio, Nausea and vomi ting; MD Jamal Malignant neoplasm of overlapping sites of cervix uteri Jessenia Kim MD Jazaeri, Amir, MD 11/03/2020 Travel after 10/30/2020 Immunizations Name Administration Dates Next Due Pfizer SARS-CoV-2 Vaccination (Purple Cap) 05/20/2020, 07/2020 Surgical History Surgery Date Site/Laterality Comments TUBAL LIGATION 02/23/2009 - 02/22/2010 AL CHG ULTRASONIC 05/26/2017 Bilateral Procedure: ULT RASOUND GUIDANCE, INTRAOPERATIVE GUIDENC E, INTRA OP (WITH RADIOLOGIST); Barrett rgeon: Marcos Valente MD; Location: MAIN O R; Service: DIAGNOS TIC IMAGING PELVIC EXAMINATION UNDER 05/26/2017 Vagina /N/A Procedu re: PELVIC ANESTHESIA EXAMINATION UNDE R ANESTHESIA; Surg dana: Estella Bruce MD; Locat ion: MAIN OR; Service: RAD IATION ONCOLOGY PELVIC EXAMINATION UNDER 06/09/2017 Vagina /N/A Procedu re: PELVIC ANESTHESIA EXAMINATION UNDE R ANESTHESIA; Surg dana: Sonya Reeves MD; Location: MAIN O R; Service: RADIATI ON ONCOLOGY LAPAROSCOPIC 02/23/2006 - CHOLECYSTECOMY 02/22/2007 AL PELVIC EXENTERATN,[employer] 02/11/2018 Vagina /N/A Procedu re: TOTAL PELVIC MALIGNANCY EXENTERATION FOR GYNECOLOGIC RENE GNANCY, WITH ALLIE, +/- BS O, APR, VAGINAL RECONSTR UCTION; Surgeon: Jamal pickett MD; Location[facility]; Service: [employer] - GYNECOLOGIC ONCO LOGY AL MUSCLE-SKIN FLAP,TRUNK 02/11/2018 Bilateral Proced ure: MUSCLE/MYOCUTANE OUS/FASCI OCUTANEOUS FLAP OF TRUNK; Surgeon: Marquise Yuen MD; Loc ation: MAIN OR; Service : PLS - PLASTIC SURGERY AL COLOSTOMY 02/11/2018 Abdomen/N/A Procedure: COLOS ORA; Surgeon: Jamal pickett MD; [facility]; Service: [employer] - GYNECOLOGIC ONCO LOGY AL URETEROILEAL 02/11/2018 Abdomen/Bilateral Procedure: ILE AL CONDUIT,W/BOWEL UROSTOMY; Surgeo n: Jamal ANASTOMOSIS MD Lio; Loc ation: MAIN OR; Service : [employer] - GYNECOLOGIC ONCO LOGY AL DEBRIDE NECROTIC SKIN/ 03/31/2018 Abdomen/Midline Proced ure: DEBRIDEMENT OF TISSUE, ABD WALL INFECTED SKIN, SUBCUTANEOUS TIS MANUELA, MUSCLE AND FASCI A OF ABDOMINAL WALL; Surgeon: Marquise nelson MD; Location[facility]; Service: PLS - P LASTIC SURGERY AL ADJ TISS XFER TRUNK <10 03/31/2018 Abdomen/Midline Proce dure: REARRANGEMENT SQCM OF ADJACENT TISS UE FOR REPAIR OF DEFECT OF TRUNK; Surgeon: Marquise Yuen MD; Location: MAIN O R; Service: PLS - P LASTIC SURGERY AL DRAIN SKIN ABSCESS 04/23/2018 Abdomen/Midline Procedure: INCISION AND COMPLIC DRAINAGE OF ABSC ESS; Surgeon: Marquise Yuen MD; Loc ation: MAIN OR; Service : PLS - PLASTIC SURGERY AL NEG PRESS WOUND TX, < 04/23/2018 Abdomen/Midline Procedu re: NEGATIVE 50 CM PRESSURE WOUND T HERAPY (WOUND VAC); Cedrick geon: Marquise nelson MD; Location[facility]; Service: PLS - P LASTIC SURGERY AL PERCUT REMV KID 02/09/2020 Left Procedure: PE RCUTANEOUS STONE,UP TO 2 CM NEPHROSTOLITHOT EMMY; Surgeon: Jonel Leyva IV, MD; Location : [facility]; Service: URO LOGY AL URETER ENDOSCOPY THRU 02/09/2020 Abdomen/Bilateral Proce dure: URETERAL URETEROSTOMY ENDOSCOPY THROUG H ESTABLISHED URET EROSTOMY; Surgeon: Jonel Leyva IV, MD; Location : [facility]; Service: URO LOGY AL REMOVE RENAL TUBE 02/09/2020 Back/Left Procedure: REMOVAL OF W/FLUORO NEPHROSTOMY TUBE USING FLUOROSCOPIC BRUCE CARRASCO; Surgeon: Jonel Leyva IV, MD; Location : [facility]; Service: URO LOGY Medical History Medical History Date Comments Gallstone Gallbladder removed Renal stone Urinary tract infection Personal history of cervical cancer 2018 REYNALDO s/p total pelvic exent with urostomy/colostomy i n place Family History Medical History Relation Name Comments Hypertension Father Colon cancer Maternal Grandfather Roderick Reyes Lung cancer Maternal Uncle Riky Reyes Hypertension Mother Cervical cancer Paternal Grandmother Maribel Han Relation Name Status Comments Father Alive Maternal Grandfather Roderick Reyes Maternal Uncle Riky Reyes Mother Alive Paternal Grandmother Maribel Han Social History Tobacco Use Types Packs/Day Years Used Date Never Smoker Smokeless Tobacco: Never Used Alcohol Use Standard Drinks/Week Comments No 0 (1 standard drink = 0.6 oz pure alcoho l) Occasionally mixed drinks Alcohol Habits Answer Date Recorded How often do you have a drink containing Not asked alcohol? How many drinks containing alcohol do you Not asked have on a typical day when you are drinking? How often do you have six or more drinks on Not asked one occasion? 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 MAKER Job Start Date Occupation Industry Not on file Not on file Not on file Obstetrics History Para Term AB IAB SAB Ectopic Multiple Living Live Births 4 3 3 3 Date Outcome GA Total Labor/2nd/3rd Weight Sex Delivery Anes PTL Claire A 1 A5 Name Clin Labor Para Para Para Last Filed Vital Signs Vital Sign Reading Time Taken Comments Blood Pressure 119/69 06/17/2021 2:27 PM CDT Pulse 51 06/17/2021 2:27 PM CDT Temperature 35.3 C (95.5 F) 06/17/2021 2:27 PM CDT Respiratory Rate 17 06/17/2021 2:27 PM CDT Oxygen Saturation 96% 03/01/2021 12:10 PM INSTRUMENT MAKER Inhaled Oxygen Concentration - - Weight 91.6 kg (201 lb 15.1 06/17/2021 2:23 PM oz) CDT Height 152.4 cm (5') 02/25/2021 2:00 AM previous heig ht INSTRUMENT MAKER Body Mass Index 39.44 02/25/2021 2:00 AM INSTRUMENT MAKER Plan of Treatment Date Type Specialty Care Team Description 12/09/2021 Office Visit Gynecology Jamal Vaca MD [address] [place], [place] [address] (Wo rk) Health Maintenance Due Date Last Done Comments COVID-19 Vaccination (3 - Pfizer risk 06/17/2020 05/20/2020 , 04/28/2020 series) Medical Devices Implanted Type Area Revenue Tax Specialist Device Identifier Shelf Exp iration Model / Date Serial / L ot Biopsy Marker In Cervix Description: Unknown prior to scanning o n 3T 12/15/17. Cleared to proceed by Dr. Yates. Best to scan on 1.5T in future du e to artifact. Procedures Procedure Name Priority Date/Time Associated Comments Diagnosis CT CHEST ABDOMEN PELVIS Routine 06/27/2021 9:46 Malignant neop lasm Results for this W CONTRAST PM CDT of overlapping procedure are in sites of cervix the results uteri section. POC CREATININE Routine 06/27/2021 9:19 Results fo r this PM CDT procedure are i n the results section. FRACTIONATED BILIRUBIN Routine 03/08/2021 6:43 Rash Re sults for this PM INSTRUMENT MAKER procedure are i n the results section. TOTAL PROTEIN Routine 03/08/2021 6:43 Rash Results for this PM INSTRUMENT MAKER procedure are i n the results section. ASPARTATE Routine 03/08/2021 6:43 Rash Results for this AMINOTRANSFERASE PM INSTRUMENT MAKER procedure a re in the results section. ALANINE AMINOTRANSFERASE Routine 03/08/2021 6:43 Rash Results for this PM INSTRUMENT MAKER procedure are i n the results section. ALKALINE PHOSPHATASE Routine 03/08/2021 6:43 Rash Resu lts for this PM INSTRUMENT MAKER procedure are i n the results section. ALBUMIN LEVEL Routine 03/08/2021 6:43 Rash Results for this PM INSTRUMENT MAKER procedure are i n the results section. CALCIUM LEVEL TOTAL Routine 03/08/2021 6:43 Rash Resul ts for this PM INSTRUMENT MAKER procedure are i n the results section. .GLOMERULAR FILTRATION Routine 03/08/2021 6:43 Rash Re sults for this RATE PM INSTRUMENT MAKER procedure are i n the results section. SERUM CREATININE Routine 03/08/2021 6:43 Rash Results for this PM INSTRUMENT MAKER procedure are i n the results section. ELECTROLYTE PANEL Routine 03/08/2021 6:43 Rash Results for this PM INSTRUMENT MAKER procedure are i n the results section. BLOOD UREA NITROGEN Routine 03/08/2021 6:43 Rash Resul ts for this PM INSTRUMENT MAKER procedure are i n the results section. GLUCOSE LEVEL Routine 03/08/2021 6:43 Rash Results for this PM INSTRUMENT MAKER procedure are i n the results section. COMPREHENSIVE METABOLIC Routine 03/08/2021 6:43 Rash PANEL PM INSTRUMENT MAKER TMP RPR PATH INTERP Routine 03/01/2021 4:40 Resul ts for this PM INSTRUMENT MAKER procedure are i n the results section. RAPID PLASMA REAGIN Routine 03/01/2021 4:40 Resul ts for this (RPR) PM INSTRUMENT MAKER procedure are i n the results section. MURINE TYPHUS Routine 03/01/2021 4:40 Results for this ANTIBODIES, IGG PM INSTRUMENT MAKER procedure ar e in the results section. COVID-19 (SARS-COV-2) Now 03/01/2021 6:12 Res ults for this ASYMPTOMATIC-LT AM INSTRUMENT MAKER procedure ar e in the results section. FRACTIONATED BILIRUBIN STAT 03/01/2021 3:00 Re sults for this AM INSTRUMENT MAKER procedure are i n the results section. TOTAL PROTEIN STAT 03/01/2021 3:00 Results for this AM INSTRUMENT MAKER procedure are i n the results section. ASPARTATE STAT 03/01/2021 3:00 Results for this AMINOTRANSFERASE AM INSTRUMENT MAKER procedure a re in the results section. ALANINE AMINOTRANSFERASE STAT 03/01/2021 3:00 Results for this AM INSTRUMENT MAKER procedure are i n the results section. ALKALINE PHOSPHATASE STAT 03/01/2021 3:00 Resu lts for this AM INSTRUMENT MAKER procedure are i n the results section. ALBUMIN LEVEL STAT 03/01/2021 3:00 Results for this AM INSTRUMENT MAKER procedure are i n the results section. CALCIUM LEVEL TOTAL STAT 03/01/2021 3:00 Resul ts for this AM INSTRUMENT MAKER procedure are i n the results section. .GLOMERULAR FILTRATION STAT 03/01/2021 3:00 Re sults for this RATE AM INSTRUMENT MAKER procedure are i n the results section. SERUM CREATININE STAT 03/01/2021 3:00 Results for this AM INSTRUMENT MAKER procedure are i n the results section. ELECTROLYTE PANEL STAT 03/01/2021 3:00 Results for this AM INSTRUMENT MAKER procedure are i n the results section. BLOOD UREA NITROGEN STAT 03/01/2021 3:00 Resu lts for this AM INSTRUMENT MAKER procedure are i n the results section. GLUCOSE LEVEL STAT 03/01/2021 3:00 Results for this AM INSTRUMENT MAKER procedure are i n the results section. MANUAL DIFFERENTIAL STAT 03/01/2021 3:00 Resul ts for this AM INSTRUMENT MAKER procedure are i n the results section. Results CBC STAT 03/01/2021 3:00 Results for this AM INSTRUMENT MAKER procedure are i n the results section. APTT Now 03/01/2021 3:00 Results for this AM INSTRUMENT MAKER procedure are i n the results section. PROTHROMBIN TIME Now 03/01/2021 3:00 Results for this AM INSTRUMENT MAKER procedure are i n the results section. MAGNESIUM LEVEL STAT 03/01/2021 3:00 Results f or this AM INSTRUMENT MAKER procedure are i n the results section. PHOSPHORUS LEVEL STAT 03/01/2021 3:00 Results for this AM INSTRUMENT MAKER procedure are i n the results section. COMPREHENSIVE METABOLIC STAT 03/01/2021 3:00 PANEL AM INSTRUMENT MAKER COMPLETE BLOOD COUNT W/ STAT 03/01/2021 3:00 DIFFERENTIAL AM INSTRUMENT MAKER GENERAL LABORATORY ADD STAT 02/26/2021 10:17 R esults for this ON TEST AM INSTRUMENT MAKER procedure are i n the results section. PERIPHERAL SMR FOR DOC AM 02/26/2021 12:38 R esults for this REVIEW AM INSTRUMENT MAKER procedure are i n the results section. TMP INTERPRETATION Routine 02/26/2021 12:38 Resul ts for this ANTIBODY SCREEN NEGATIVE AM INSTRUMENT MAKER pro cedure are in the results section. CLOT EXPIRATION DATE Routine 02/26/2021 12:38 Res ults for this AM INSTRUMENT MAKER procedure are i n the results section. ANION GAP AM 02/26/2021 12:38 Results for this AM INSTRUMENT MAKER procedure are i n the results section. ANTIBODY SCREEN Now 02/26/2021 12:38 Results for this AM INSTRUMENT MAKER procedure are i n the results section. ABORH Now 02/26/2021 12:38 Results for this AM INSTRUMENT MAKER procedure are i n the results section. FRACTIONATED BILIRUBIN AM 02/26/2021 12:38 R esults for this AM INSTRUMENT MAKER procedure are i n the results section. TOTAL PROTEIN AM 02/26/2021 12:38 Results fo r this AM INSTRUMENT MAKER procedure are i n the results section. ASPARTATE AM 02/26/2021 12:38 Results for this AMINOTRANSFERASE AM INSTRUMENT MAKER procedure a re in the results section. ALANINE AMINOTRANSFERASE AM 02/26/2021 12:38 Results for this AM INSTRUMENT MAKER procedure are i n the results section. ALKALINE PHOSPHATASE AM 02/26/2021 12:38 Res ults for this AM INSTRUMENT MAKER procedure are i n the results section. ALBUMIN LEVEL AM 02/26/2021 12:38 Results fo r this AM INSTRUMENT MAKER procedure are i n the results section. .GLOMERULAR FILTRATION AM 02/26/2021 12:38 R esults for this RATE AM INSTRUMENT MAKER procedure are i n the results section. SERUM CREATININE AM 02/26/2021 12:38 Results for this AM INSTRUMENT MAKER procedure are i n the results section. MANUAL DIFFERENTIAL AM 02/26/2021 12:38 Resu lts for this AM INSTRUMENT MAKER procedure are i n the results section. Results CBC AM 02/26/2021 12:38 Results for this AM INSTRUMENT MAKER procedure are i n the results section. HEPATIC FUNCTION PANEL AM 02/26/2021 12:38 AM INSTRUMENT MAKER GLUCOSE, RANDOM AM 02/26/2021 12:38 Results for this AM INSTRUMENT MAKER procedure are i n the results section. SERUM CREATININE AM 02/26/2021 12:38 AM INSTRUMENT MAKER BLOOD UREA NITROGEN AM 02/26/2021 12:38 Resu lts for this AM INSTRUMENT MAKER procedure are i n the results section. MAGNESIUM LEVEL AM 02/26/2021 12:38 Results for this AM INSTRUMENT MAKER procedure are i n the results section. POTASSIUM LEVEL AM 02/26/2021 12:38 Results for this AM INSTRUMENT MAKER procedure are i n the results section. CHLORIDE LEVEL AM 02/26/2021 12:38 Results f or this AM INSTRUMENT MAKER procedure are i n the results section. CARBON DIOXIDE LEVEL AM 02/26/2021 12:38 Res ults for this AM INSTRUMENT MAKER procedure are i n the results section. SODIUM LEVEL AM 02/26/2021 12:38 Results for this AM INSTRUMENT MAKER procedure are i n the results section. COMPLETE BLOOD COUNT W/ AM 02/26/2021 12:38 DIFFERENTIAL AM INSTRUMENT MAKER TYPE AND SCREEN Now 02/26/2021 12:38 AM INSTRUMENT MAKER US ABDOMEN COMPLETE Routine 02/25/2021 1:08 Resul ts for this PM INSTRUMENT MAKER procedure are i n the results section. GENERAL LABORATORY ADD STAT 02/25/2021 12:07 R esults for this ON TEST PM INSTRUMENT MAKER procedure are i n the results section. CT HEAD WO CONTRAST Routine 02/25/2021 3:30 Resul ts for this AM INSTRUMENT MAKER procedure are i n the results section. URINALYSIS MICROSCOPIC Routine 02/24/2021 11:09 R esults for this PM INSTRUMENT MAKER procedure are i n the results section. URINALYSIS WITH Now 02/24/2021 11:09 Results for this MICROSCOPIC IF INDICATED PM INSTRUMENT MAKER pro cedure are in the results section. URINE CULTURE Now 02/24/2021 11:09 Results fo r this PM INSTRUMENT MAKER procedure are i n the results section. TMP HIV 1/2 AG&AB PATH Routine 02/24/2021 10:58 R esults for this INTERP PM INSTRUMENT MAKER procedure are i n the results section. IRENE MISCELLANEOUS TEST Routine 02/24/2021 10:58 Results for this PM INSTRUMENT MAKER procedure are i n the results section. HP DARNELL-GUERRA VIRUS Routine 02/24/2021 10:58 QUANTITATIVE PCR PM INSTRUMENT MAKER ANALYSIS INTERPRETATION AND REPORT HEPATITIS B SURFACE AG Routine 02/24/2021 10:58 R esults for this W/CONFIRM PM INSTRUMENT MAKER procedure are i n the results section. HEPATITIS B CORE TOTAL Routine 02/24/2021 10:58 R esults for this ANTIBODY PM INSTRUMENT MAKER procedure are i n the results section. FRACTIONATED BILIRUBIN Routine 02/24/2021 10:58 R esults for this PM INSTRUMENT MAKER procedure are i n the results section. TOTAL PROTEIN Routine 02/24/2021 10:58 Results fo r this PM INSTRUMENT MAKER procedure are i n the results section. ASPARTATE Routine 02/24/2021 10:58 Results for this AMINOTRANSFERASE PM INSTRUMENT MAKER procedure a re in the results section. ALANINE AMINOTRANSFERASE Routine 02/24/2021 10:58 Results for this PM INSTRUMENT MAKER procedure are i n the results section. ALKALINE PHOSPHATASE Routine 02/24/2021 10:58 Res ults for this PM INSTRUMENT MAKER procedure are i n the results section. ALBUMIN LEVEL Routine 02/24/2021 10:58 Results fo r this PM INSTRUMENT MAKER procedure are i n the results section. CALCIUM LEVEL TOTAL Routine 02/24/2021 10:58 Resu lts for this PM INSTRUMENT MAKER procedure are i n the results section. .GLOMERULAR FILTRATION Routine 02/24/2021 10:58 R esults for this RATE PM INSTRUMENT MAKER procedure are i n the results section. SERUM CREATININE Routine 02/24/2021 10:58 Results for this PM INSTRUMENT MAKER procedure are i n the results section. ELECTROLYTE PANEL Routine 02/24/2021 10:58 Result s for this PM INSTRUMENT MAKER procedure are i n the results section. BLOOD UREA NITROGEN Routine 02/24/2021 10:58 Resu lts for this PM INSTRUMENT MAKER procedure are i n the results section. GLUCOSE LEVEL Routine 02/24/2021 10:58 Results fo r this PM INSTRUMENT MAKER procedure are i n the results section. HEPATITIS B CORE Routine 02/24/2021 10:58 Results for this ANTIBODY PM INSTRUMENT MAKER procedure are i n the results section. FERRITIN LVL Now 02/24/2021 10:58 Results for this PM INSTRUMENT MAKER procedure are i n the results section. TRANSFERRIN Now 02/24/2021 10:58 Results for this PM INSTRUMENT MAKER procedure are i n the results section. IRON LEVEL Now 02/24/2021 10:58 Results for this PM INSTRUMENT MAKER procedure are i n the results section. TISSUE TRANSGLUTAMINASE Routine 02/24/2021 10:58 Results for this ANTIBODY, SERUM PM INSTRUMENT MAKER procedure ar e in the results section. IMMUNOGLOBULIN A SERUM Routine 02/24/2021 10:58 R esults for this PM INSTRUMENT MAKER procedure are i n the results section. IMMUNOGLOBULIN M SERUM Routine 02/24/2021 10:58 R esults for this PM INSTRUMENT MAKER procedure are i n the results section. IMMUNOGLOBULIN G SERUM Routine 02/24/2021 10:58 R esults for this PM INSTRUMENT MAKER procedure are i n the results section. LIVER/KIDNEY MICROSOME Routine 02/24/2021 10:58 R esults for this TYPE 1 ANTIBODY, SERUM PM INSTRUMENT MAKER proce dure are in the results section. MITOCHONDRIAL Routine 02/24/2021 10:58 Results fo r this ANTIBODIES, M2, SERUM PM INSTRUMENT MAKER proced ure are in the results section. ANTINUCLEAR ANTIBODY Routine 02/24/2021 10:58 Res ults for this HEP-2 SUBSTRATE IGG PM INSTRUMENT MAKER procedur e are in the results section. ALPHA 1 ANTRITRYPSIN, Routine 02/24/2021 10:58 Re sults for this SERUM PM INSTRUMENT MAKER procedure are i n the results section. CERULOPLASMIN LVL Routine 02/24/2021 10:58 Result s for this PM INSTRUMENT MAKER procedure are i n the results section. HIV-1/2 ANTIGEN AND Routine 02/24/2021 10:58 Resu lts for this ANTIBODIES, FOURTH PM INSTRUMENT MAKER procedure are in GENERATION the results section. HSV 1+2 ANTIBODY Routine 02/24/2021 10:58 Results for this PM INSTRUMENT MAKER procedure are i n the results section. HP MD DARNELL-GUERRA VIRUS Routine 02/24/2021 10:58 Results for this QUANTITATIVE PCR PM INSTRUMENT MAKER procedure a re in ANALYSIS COLLECTION, the res ults BLOOD section. DARNELL GUERRA VIRUS PANEL Routine 02/24/2021 10:58 Results for this PM INSTRUMENT MAKER procedure are i n the results section. CMV QUANT PCR Routine 02/24/2021 10:58 Results fo r this PM INSTRUMENT MAKER procedure are i n the results section. HEV IGM ANTIBODY SCREEN, Routine 02/24/2021 10:58 Results for this SERUM PM INSTRUMENT MAKER procedure are i n the results section. HEV IGG ANTIBODY, SERUM Routine 02/24/2021 10:58 Results for this PM INSTRUMENT MAKER procedure are i n the results section. HEPATITIS C VIRUS RNA Routine 02/24/2021 10:58 Re sults for this DETECT/QUANT, SERUM PM INSTRUMENT MAKER procedur e are in the results section. HEPATITIS C VIRUS Routine 02/24/2021 10:58 Result s for this ANTIBODY PM INSTRUMENT MAKER procedure are i n the results section. HBV DNA QUANT Routine 02/24/2021 10:58 Results fo r this PM INSTRUMENT MAKER procedure are i n the results section. HEPATITIS B CORE Routine 02/24/2021 10:58 Results for this ANTIBODY PM INSTRUMENT MAKER procedure are i n the results section. HEPATITIS B CORE Routine 02/24/2021 10:58 Results for this ANTIBODY IGM ACUTE TITER PM INSTRUMENT MAKER pro cedure are in the results section. HEPATITIS B SURFACE Routine 02/24/2021 10:58 Resu lts for this ANTIBODY, SERUM PM INSTRUMENT MAKER procedure ar e in the results section. HEPATITIS B SURFACE Routine 02/24/2021 10:58 Resu lts for this ANTIGEN, SERUM PM INSTRUMENT MAKER procedure are in the results section. HEPATITIS A ANTIBODY IGG Routine 02/24/2021 10:58 Results for this PM INSTRUMENT MAKER procedure are i n the results section. HEPATITIS A IGM ANTIBODY Routine 02/24/2021 10:58 Results for this SERUM PM INSTRUMENT MAKER procedure are i n the results section. PROTHROMBIN TIME Routine 02/24/2021 10:58 Results for this PM INSTRUMENT MAKER procedure are i n the results section. GAMMA GLUTAMYL Routine 02/24/2021 10:58 Results f or this TRANSFERASE PM INSTRUMENT MAKER procedure are i n the results section. HEPATIC FUNCTION PANEL Routine 02/24/2021 10:58 PM INSTRUMENT MAKER THYROID STIMULATING Routine 02/24/2021 10:58 Resu lts for this HORMONE PM INSTRUMENT MAKER procedure are i n the results section. BASIC METABOLIC PANEL, Routine 02/24/2021 10:58 CALCIUM TOTAL PM INSTRUMENT MAKER CMV ANTIBODY IGG AND IGM Routine 02/24/2021 10:58 Results for this PATH REVIEW PM INSTRUMENT MAKER procedure are i n the results section. DARNELL GUERRA VIRUS PANEL Routine 02/24/2021 10:58 Results for this PATH REVIEW PM INSTRUMENT MAKER procedure are i n the results section. HSV SEROLOGY PATH REVIEW Routine 02/24/2021 10:58 Results for this PM INSTRUMENT MAKER procedure are i n the results section. HSV 1 & 2 QUANTITATIVE, Now 02/24/2021 10:58 Results for this PLASMA PM INSTRUMENT MAKER procedure are i n the results section. CMV ANTIBODY IGG AND IGM Now 02/24/2021 10:58 Results for this PM INSTRUMENT MAKER procedure are i n the results section. XR CHEST 1 VW Routine 02/24/2021 8:52 Results for this PM INSTRUMENT MAKER procedure are i n the results section. POC VENOUS BLOOD GAS + Routine 02/24/2021 8:52 Re sults for this LACTATE PM INSTRUMENT MAKER procedure are i n the results section. MANUAL DIFFERENTIAL Now 02/24/2021 8:45 Resul ts for this PM INSTRUMENT MAKER procedure are i n the results section. Results CBC Now 02/24/2021 8:45 Results for this PM INSTRUMENT MAKER procedure are i n the results section. FRACTIONATED BILIRUBIN Now 02/24/2021 8:45 Re sults for this PM INSTRUMENT MAKER procedure are i n the results section. TOTAL PROTEIN Now 02/24/2021 8:45 Results for this PM INSTRUMENT MAKER procedure are i n the results section. ASPARTATE Now 02/24/2021 8:45 Results for this AMINOTRANSFERASE PM INSTRUMENT MAKER procedure a re in the results section. ALANINE AMINOTRANSFERASE Now 02/24/2021 8:45 Results for this PM INSTRUMENT MAKER procedure are i n the results section. ALKALINE PHOSPHATASE Now 02/24/2021 8:45 Resu lts for this PM INSTRUMENT MAKER procedure are i n the results section. ALBUMIN LEVEL Now 02/24/2021 8:45 Results for this PM INSTRUMENT MAKER procedure are i n the results section. CALCIUM LEVEL TOTAL Now 02/24/2021 8:45 Resul ts for this PM INSTRUMENT MAKER procedure are i n the results section. .GLOMERULAR FILTRATION Now 02/24/2021 8:45 Re sults for this RATE PM INSTRUMENT MAKER procedure are i n the results section. SERUM CREATININE Now 02/24/2021 8:45 Results for this PM INSTRUMENT MAKER procedure are i n the results section. ELECTROLYTE PANEL Now 02/24/2021 8:45 Results for this PM INSTRUMENT MAKER procedure are i n the results section. BLOOD UREA NITROGEN Now 02/24/2021 8:45 Resul ts for this PM INSTRUMENT MAKER procedure are i n the results section. GLUCOSE LEVEL Now 02/24/2021 8:45 Results for this PM INSTRUMENT MAKER procedure are i n the results section. PROCALCITONIN Now 02/24/2021 8:45 Results for this PM INSTRUMENT MAKER procedure are i n the results section. C REACTIVE PROTEIN Now 02/24/2021 8:45 Result s for this PM INSTRUMENT MAKER procedure are i n the results section. LACTATE DEHYDROGENASE Now 02/24/2021 8:45 Res ults for this PM INSTRUMENT MAKER procedure are i n the results section. PHOSPHORUS LEVEL Now 02/24/2021 8:45 Results for this PM INSTRUMENT MAKER procedure are i n the results section. MAGNESIUM LEVEL Now 02/24/2021 8:45 Results f or this PM INSTRUMENT MAKER procedure are i n the results section. COMPREHENSIVE METABOLIC Now 02/24/2021 8:45 PANEL PM INSTRUMENT MAKER COMPLETE BLOOD COUNT W/ Now 02/24/2021 8:45 DIFFERENTIAL PM INSTRUMENT MAKER BLOODCULTURE Now 02/24/2021 8:45 Results for this PM INSTRUMENT MAKER procedure are i n the results section. RESPIRATORY VIRAL PANEL Now 02/24/2021 8:28 R esults for this + COVID-19, PM INSTRUMENT MAKER procedure are i n NASOPHARYNGEAL SWAB the resu lts section. CT ABDOMEN PELVIS W STAT 02/13/2021 7:14 Resul ts for this CONTRAST AM INSTRUMENT MAKER procedure are i n the results section. POC ICON 20 URINE Routine 02/13/2021 6:52 Results for this TEST AM INSTRUMENT MAKER procedure are in the results section. URINALYSIS MICROSCOPIC Routine 02/13/2021 5:49 Re sults for this AM INSTRUMENT MAKER procedure are i n the results section. URINALYSIS WITH Now 02/13/2021 5:49 Results f or this MICROSCOPIC IF INDICATED AM INSTRUMENT MAKER pro cedure are in the results section. FRACTIONATED BILIRUBIN Routine 02/13/2021 5:31 Re sults for this AM INSTRUMENT MAKER procedure are i n the results section. TOTAL PROTEIN Routine 02/13/2021 5:31 Results for this AM INSTRUMENT MAKER procedure are i n the results section. ASPARTATE Routine 02/13/2021 5:31 Results for this AMINOTRANSFERASE AM INSTRUMENT MAKER procedure a re in the results section. ALANINE AMINOTRANSFERASE Routine 02/13/2021 5:31 Results for this AM INSTRUMENT MAKER procedure are i n the results section. ALKALINE PHOSPHATASE Routine 02/13/2021 5:31 Resu lts for this AM INSTRUMENT MAKER procedure are i n the results section. ALBUMIN LEVEL Routine 02/13/2021 5:31 Results for this AM INSTRUMENT MAKER procedure are i n the results section. CALCIUM LEVEL TOTAL Routine 02/13/2021 5:31 Resul ts for this AM INSTRUMENT MAKER procedure are i n the results section. .GLOMERULAR FILTRATION Routine 02/13/2021 5:31 Re sults for this RATE AM INSTRUMENT MAKER procedure are i n the results section. SERUM CREATININE Routine 02/13/2021 5:31 Results for this AM INSTRUMENT MAKER procedure are i n the results section. ELECTROLYTE PANEL Routine 02/13/2021 5:31 Results for this AM INSTRUMENT MAKER procedure are i n the results section. BLOOD UREA NITROGEN Routine 02/13/2021 5:31 Resul ts for this AM INSTRUMENT MAKER procedure are i n the results section. GLUCOSE LEVEL Routine 02/13/2021 5:31 Results for this AM INSTRUMENT MAKER procedure are i n the results section. MANUAL DIFFERENTIAL STAT 02/13/2021 5:31 Resul ts for this AM INSTRUMENT MAKER procedure are i n the results section. Results CBC STAT 02/13/2021 5:31 Results for this AM INSTRUMENT MAKER procedure are i n the results section. COMPREHENSIVE METABOLIC Routine 02/13/2021 5:31 PANEL AM INSTRUMENT MAKER COMPLETE BLOOD COUNT W/ Routine 02/13/2021 5:31 DIFFERENTIAL AM INSTRUMENT MAKER .GLOMERULAR FILTRATION Routine 01/16/2021 8:33 Urinary tract R esults for this RATE AM INSTRUMENT MAKER infectious disease procedure are in the results section. SERUM CREATININE Routine 01/16/2021 8:33 Urinary tract Results for this AM INSTRUMENT MAKER infectious disease procedure are in the results section. SERUM CREATININE Routine 01/16/2021 8:33 Urinary tract AM INSTRUMENT MAKER infectious disease CT ABDOMEN PELVIS W STAT 11/24/2020 9:11 Resul ts for this CONTRAST AM CDT procedure are i n the results section. URINALYSIS MICROSCOPIC Routine 11/24/2020 5:53 Re sults for this AM CDT procedure are i n the results section. URINALYSIS WITH Now 11/24/2020 5:53 Results f or this MICROSCOPIC IF INDICATED AM CDT pro cedure are in the results section. URINE CULTURE Now 11/24/2020 5:53 Results for this AM CDT procedure are i n the results section. POC CHEM 8 Routine 11/24/2020 5:16 Results for this AM CDT procedure are i n the results section. POC VENOUS BLOOD GAS + Routine 11/24/2020 5:08 Re sults for this LACTATE AM CDT procedure are i n the results section. TMP INTERPRETATION STAT 11/24/2020 5:02 Result s for this ANTIBODY SCREEN NEGATIVE AM CDT pro cedure are in the results section. CLOT EXPIRATION DATE STAT 11/24/2020 5:02 Resu lts for this AM CDT procedure are i n the results section. FRACTIONATED BILIRUBIN Now 11/24/2020 5:02 Re sults for this AM CDT procedure are i n the results section. TOTAL PROTEIN Now 11/24/2020 5:02 Results for this AM CDT procedure are i n the results section. ASPARTATE Now 11/24/2020 5:02 Results for this AMINOTRANSFERASE AM CDT procedure a re in the results section. ALANINE AMINOTRANSFERASE Now 11/24/2020 5:02 Results for this AM CDT procedure are i n the results section. ALKALINE PHOSPHATASE Now 11/24/2020 5:02 Resu lts for this AM CDT procedure are i n the results section. ALBUMIN LEVEL Now 11/24/2020 5:02 Results for this AM CDT procedure are i n the results section. CALCIUM LEVEL TOTAL Now 11/24/2020 5:02 Resul ts for this AM CDT procedure are i n the results section. .GLOMERULAR FILTRATION Now 11/24/2020 5:02 Re sults for this RATE AM CDT procedure are i n the results section. SERUM CREATININE Now 11/24/2020 5:02 Results for this AM CDT procedure are i n the results section. ELECTROLYTE PANEL Now 11/24/2020 5:02 Results for this AM CDT procedure are i n the results section. BLOOD UREA NITROGEN Now 11/24/2020 5:02 Resul ts for this AM CDT procedure are i n the results section. GLUCOSE LEVEL Now 11/24/2020 5:02 Results for this AM CDT procedure are i n the results section. MANUAL DIFFERENTIAL STAT 11/24/2020 5:02 Resul ts for this AM CDT procedure are i n the results section. Results CBC STAT 11/24/2020 5:02 Results for this AM CDT procedure are i n the results section. ANTIBODY SCREEN STAT 11/24/2020 5:02 Results f or this AM CDT procedure are i n the results section. ABORH STAT 11/24/2020 5:02 Results for this AM CDT procedure are i n the results section. PHOSPHORUS LEVEL Now 11/24/2020 5:02 Results for this AM CDT procedure are i n the results section. MAGNESIUM LEVEL Now 11/24/2020 5:02 Results f or this AM CDT procedure are i n the results section. LACTATE DEHYDROGENASE Now 11/24/2020 5:02 Res ults for this AM CDT procedure are i n the results section. COMPREHENSIVE METABOLIC Now 11/24/2020 5:02 PANEL AM CDT TYPE AND SCREEN STAT 11/24/2020 5:02 AM CDT APTT Now 11/24/2020 5:02 Results for this AM CDT procedure are i n the results section. PROTHROMBIN TIME Now 11/24/2020 5:02 Results for this AM CDT procedure are i n the results section. COMPLETE BLOOD COUNT W/ Now 11/24/2020 5:02 DIFFERENTIAL AM CDT ANION GAP AM 11/05/2020 4:04 Results for this AM CDT procedure are i n the results section. .GLOMERULAR FILTRATION AM 11/05/2020 4:04 Re sults for this RATE AM CDT procedure are i n the results section. SERUM CREATININE AM 11/05/2020 4:04 Results for this AM CDT procedure are i n the results section. MANUAL DIFFERENTIAL AM 11/05/2020 4:04 Resul ts for this AM CDT procedure are i n the results section. Results CBC AM 11/05/2020 4:04 Results for this AM CDT procedure are i n the results section. GLUCOSE, RANDOM AM 11/05/2020 4:04 Results f or this AM CDT procedure are i n the results section. SERUM CREATININE AM 11/05/2020 4:04 AM CDT BLOOD UREA NITROGEN AM 11/05/2020 4:04 Resul ts for this AM CDT procedure are i n the results section. MAGNESIUM LEVEL AM 11/05/2020 4:04 Results f or this AM CDT procedure are i n the results section. POTASSIUM LEVEL AM 11/05/2020 4:04 Results f or this AM CDT procedure are i n the results section. CHLORIDE LEVEL AM 11/05/2020 4:04 Results fo r this AM CDT procedure are i n the results section. CARBON DIOXIDE LEVEL AM 11/05/2020 4:04 Resu lts for this AM CDT procedure are i n the results section. SODIUM LEVEL AM 11/05/2020 4:04 Results for this AM CDT procedure are i n the results section. COMPLETE BLOOD COUNT W/ AM 11/05/2020 4:04 DIFFERENTIAL AM CDT ANION GAP AM 11/04/2020 5:13 Results for this AM CDT procedure are i n the results section. .GLOMERULAR FILTRATION AM 11/04/2020 5:13 Re sults for this RATE AM CDT procedure are i n the results section. SERUM CREATININE AM 11/04/2020 5:13 Results for this AM CDT procedure are i n the results section. MANUAL DIFFERENTIAL AM 11/04/2020 5:13 Resul ts for this AM CDT procedure are i n the results section. Results CBC AM 11/04/2020 5:13 Results for this AM CDT procedure are i n the results section. GLUCOSE, RANDOM AM 11/04/2020 5:13 Results f or this AM CDT procedure are i n the results section. SERUM CREATININE AM 11/04/2020 5:13 AM CDT BLOOD UREA NITROGEN AM 11/04/2020 5:13 Resul ts for this AM CDT procedure are i n the results section. MAGNESIUM LEVEL AM 11/04/2020 5:13 Results f or this AM CDT procedure are i n the results section. POTASSIUM LEVEL AM 11/04/2020 5:13 Results f or this AM CDT procedure are i n the results section. CHLORIDE LEVEL AM 11/04/2020 5:13 Results fo r this AM CDT procedure are i n the results section. CARBON DIOXIDE LEVEL AM 11/04/2020 5:13 Resu lts for this AM CDT procedure are i n the results section. SODIUM LEVEL AM 11/04/2020 5:13 Results for this AM CDT procedure are i n the results section. COMPLETE BLOOD COUNT W/ AM 11/04/2020 5:13 DIFFERENTIAL AM CDT XR ABDOMEN 1 VW PORTABLE Routine 11/03/2020 6:12 Results for this AM CDT procedure are i n the results section. URINALYSIS MICROSCOPIC Routine 11/03/2020 2:55 Re sults for this AM CDT procedure are i n the results section. URINALYSIS WITH Now 11/03/2020 2:55 Results f or this MICROSCOPIC IF INDICATED AM CDT pro cedure are in the results section. URINE CULTURE Now 11/03/2020 2:55 Results for this AM CDT procedure are i n the results section. CT ABDOMEN PELVIS W Routine 11/03/2020 2:43 Resul ts for this CONTRAST AM CDT procedure are i n the results section. POC VENOUS BLOOD GAS + Routine 11/03/2020 12:59 R esults for this LACTATE AM CDT procedure are i n the results section. FRACTIONATED BILIRUBIN Now 11/03/2020 12:57 R esults for this AM CDT procedure are i n the results section. TOTAL PROTEIN Now 11/03/2020 12:57 Results fo r this AM CDT procedure are i n the results section. ASPARTATE Now 11/03/2020 12:57 Results for this AMINOTRANSFERASE AM CDT procedure a re in the results section. ALANINE AMINOTRANSFERASE Now 11/03/2020 12:57 Results for this AM CDT procedure are i n the results section. ALKALINE PHOSPHATASE Now 11/03/2020 12:57 Res ults for this AM CDT procedure are i n the results section. ALBUMIN LEVEL Now 11/03/2020 12:57 Results fo r this AM CDT procedure are i n the results section. CALCIUM LEVEL TOTAL Now 11/03/2020 12:57 Resu lts for this AM CDT procedure are i n the results section. .GLOMERULAR FILTRATION Now 11/03/2020 12:57 R esults for this RATE AM CDT procedure are i n the results section. SERUM CREATININE Now 11/03/2020 12:57 Results for this AM CDT procedure are i n the results section. ELECTROLYTE PANEL Now 11/03/2020 12:57 Result s for this AM CDT procedure are i n the results section. BLOOD UREA NITROGEN Now 11/03/2020 12:57 Resu lts for this AM CDT procedure are i n the results section. GLUCOSE LEVEL Now 11/03/2020 12:57 Results fo r this AM CDT procedure are i n the results section. MANUAL DIFFERENTIAL Now 11/03/2020 12:57 Resu lts for this AM CDT procedure are i n the results section. Results CBC STAT 11/03/2020 12:57 Results for this AM CDT procedure are i n the results section. LIPASE LEVEL Now 11/03/2020 12:57 Results for this AM CDT procedure are i n the results section. AMYLASE LEVEL Now 11/03/2020 12:57 Results fo r this AM CDT procedure are i n the results section. LACTATE DEHYDROGENASE Now 11/03/2020 12:57 Re sults for this AM CDT procedure are i n the results section. PHOSPHORUS LEVEL Now 11/03/2020 12:57 Results for this AM CDT procedure are i n the results section. MAGNESIUM LEVEL Now 11/03/2020 12:57 Results for this AM CDT procedure are i n the results section. COMPREHENSIVE METABOLIC Now 11/03/2020 12:57 PANEL AM CDT COMPLETE BLOOD COUNT W/ Now 11/03/2020 12:57 DIFFERENTIAL AM CDT INFLUENZA A/B + COVID-19 Now 11/03/2020 12:57 Results for this ASYMPTOMATIC-L AM CDT procedure are in the results section. after 10/30/[address] Chest Abdomen Pelvis with Contrast (06/27/2021 9:46 PM CDT) Anatomical Region Laterality Modality Abdomen, Pelvis, Chest Computed Tomograp hy Specimen (Source) Anatomical Collection Method Collection Time Re ceived Time Location / / Volume Laterality 06/28/2021 10:16 AM CDT Impressions 06/28/2021 10:49 AM CDT 1. Unchanged, bilateral peristomal hernias, with nonobstructive herniated small and large bowel loops, as described. 2. Slight improvement of the bilateral h ydroureteronephrosis. 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 3. No interval measurable metastatic dis ease detected. 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 Comparison: None Technique: CT of the chest, abdomen an d pelvis was performed after oral and intravenous contrast administration. Post-processing MIPS, sagittal and coronal MPR images were performed. Findings CHEST No suspicious pulmonary nodule, pulmonar y mass, or consolidation is seen. No malignant pleural effusion is present. Central airway remains patent. No malignant-appearing supraclavicular, mediastinal, hilar, axillary or internal mammary lymphadenopathy seen. The cardiac size is within normal limits . No pericardial effusion. ABDOMEN AND PELVIS The liver is within normal limits, witho ut focal abnormality suspicious for malignancy detected. The patient is status post cholecystecto my. The pancreas, spleen, and right adrenal gland are within normal limits. The 1.5 cm left adrenal probable adenoma is stable. Kidneys, ureters and bladder: Both kidne ys appear normal with no enhancing lesions. The moderate left hydroureteronephrosis is slightly improved from prior study. The prominent right ureter is also less . No change in appearance of the anastom otic site in the right abdomen/pelvis related to the ileal conduit urinary diversion. Stable postoperative changes of pelvic e xenteration, VRAM flap reconstruction, colostomy and ileal conduit urinary diversion. The right abdominal parastomal hernia, containing nondilated partially opaci fied small bowel and right colon, is unc hanged. Left lower quadrant colostomy, with a smaller parastomal hernia containing unobstructed small bowel, is also unchanged. No bowel obstruction, ascites, or interval peritoneal disease is detected. Lymph nodes: No interval intra-abdominal or intrapelvic malignant appearing adenopathy detected. Bilateral inguinal nodes have normal appearance. No interval suspicious osteolytic or scl erotic bony lesions detected to suggest bony metastases. Procedure Note Selene Longoria MD - 06/28/2021For matting of this note might be different from the original. 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 Comparison: None Technique: CT of the chest, abdomen and pelvis was performed after oral and intravenous contrast administration. Post-processing MIPS, sagittal and coronal MPR images were performed. Findings CHEST No suspicious pulmonary nodule, pulmonar y mass, or consolidation is seen. No malignant pleural effusion is present. Central airway remains patent. No malignant-appearing supraclavicular, mediastinal, hilar, axillary or internal mammary lymphadenopathy seen. The cardiac size is within normal limits . No pericardial effusion. ABDOMEN AND PELVIS The liver is within normal limits, witho ut focal abnormality suspicious for malignancy detected. The patient is status post cholecystecto my. The pancreas, spleen, and right adrenal gland are within normal limits. The 1.5 cm left adrenal probable adenoma is stable. Kidneys, ureters and bladder: Both kidne ys appear normal with no enhancing lesions. The moderate left hydroureteronephrosis is slightly improved from prior study. The prominent right ureter is also less. No change in appearance of the anastomotic site in th e right abdomen/pelvis related to the ileal conduit urinary diversion. Stable postoperative changes of pelvic e xenteration, VRAM flap reconstruction, colostomy and ileal conduit urinary diversion. The right abdominal parastomal hernia, containing nondilated partially opacified small bowel and right colon, is unchange d. Left lower quadrant colostomy, with a smaller parastomal hernia containing unobstructed small bowel, is also unchanged. No bowel obstruction, ascites, or interval peritoneal disease is detected. Lymph nodes: No interval intra-abdominal or intrapelvic malignant appearing adenopathy detected. Bilateral inguinal nodes have normal appearance. No interval suspicious osteolytic or scl erotic bony lesions detected to suggest bony metastases. IMPRESSION: 1. Unchanged, bilateral peristomal herni as, with nonobstructive herniated small and large bowel loops, as described. 2. Slight improvement of the bilateral h ydroureteronephrosis. 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 3. No interval measurable metastatic dis ease detected. Trista tSacy SENIOR CYBER INTELLIGENCE ANALYST IMG CT ORDERABLES POC Creatinine (06/27/2021 9:19 PM CDT) P athologist Signature POC Crea 0.6 0.6 - 1.3 POC TELCOR mg/dL Comment: Medications, especially hydroxyurea or s upplements, such as ascorbate, can interfere with test results causing a falsely and significantly higher result than expected. If a problem is suspected with a patient's result, a sample should be sent to the laboratory for confirmatory testing. Method description: The i-STAT is an dick lyzer used for in vitro quantification of various analytes in whole blood. The device uses a single disposable cartridge which contains microfabricated sensors, a calibration solution, fluidics system, and a waste chamber. Each test cartridge contains ch emically sensitive biosensors on a silicon chip that are configured to perform specific tests. The microfabricated sensors measure analyte concentration by an electrochemical assay. POC eGFR-AA 134 >=60 mL/min/1.73 m2 POC TELC OR Comment: Normal eGFR >= 60 mL/min/1.73 m2 The eGFR is calculated using the CKD-EPI equation. The eGFR declines with age. eGFR <60 mL/min/1.73 m2 is considered as "decreased" This equation should only be used for patients 18 and older. According to the National Kidney Found[employer] ion's Kidney Disease Outcome Quality Initiative (KDOQI) classification and 2012 Kidney Disease Improving Global Outcomes (KDIGO) Clinical Practice Guideline, the stage of CKD should be categorized based on estimated GFR. Stage Description GFR mL/min/1.73 m2 1 Kidney damage with normal or high GFR >=90 2 Kidney damage with mild decrease in GF R 60-89 3a Mild to moderate decrease in GFR 45-59 3b Moderate to severe decrease in GFR 30-44 4 Severe decrease in GFR 15-29 5 Kidney failure <15 (or dialysis) POC eGFR-LIN 116 >=60 mL/min/1.73 m2 POC TEL COR Comment: Normal eGFR >= 60 mL/min/1.73 m2 The eGFR is calculated using the CKD-EPI equation. The eGFR declines with age. eGFR <60 mL/min/1.73 m2 is considered as "decreased" This equation should only be used for patients 18 and older. According to the National Kidney Foundat ion's Kidney Disease Outcome Quality Initiative (KDOQI) classification and 2012 Kidney Disease Improving Global Outcomes (KDIGO) Clinical Practice Guideline, the stage of CKD should be categorized based on estimated GFR. Stage Description GFR mL/min/1.73 m2 1 Kidney damage with normal or high GFR >=90 2 Kidney damage with mild decrease in GF R 60-89 3a Mild to moderate decrease in GFR 45-59 3b Moderate to severe decrease in GFR 30-44 4 Severe decrease in GFR 15-29 5 Kidney failure <15 (or dialysis) POC Clean Dev 2 POC TELCOR Performing Lab [facility] POC TELCO R Comment: [facility], [address] [place] [address], [place] [phone]; Lab Direct or: Lacy Mendoza MD Specimen Anatomical Collection Method Collection Time Receive d Time (Source) Location / / Volume Laterality Blood 06/27/2021 9:19 PM 2 9:19 CDT PM CDT Trista Stacy NP POCT ORDERABLES - DEVICE Performing Organization Address City/[facility]/ZIP Code Phon e Number POC TELCOR .Serum Creatinine (03/08/2021 6:43 PM INSTRUMENT MAKER)Only the most recent of11 results within the time period is included. athologist Signature Creatinine 0.71 0.51 - 0.95 [facility] mg/dL [facility] Specimen Anatomical Collection Method Collection Time Receive d Time (Source) Location / / Volume Laterality Blood 03/08/2021 6:43 PM 2 7:27 INSTRUMENT MAKER PM INSTRUMENT MAKER Charles Warren MD LAB BLOOD ORDERABLES Performing Organization Address City/[facility] Phon e Number [facility] Unless otherwise noted, [place] [address] CENTER all lab tests performed by: Division of Pathology and Laboratory Medicine [address] [place] [address] Glomerular Filtration Rate (03/08/2021 6:43 PM INSTRUMENT MAKER)Only the most recent of11 resultswithin the time period is included. athologist Signature eGFR-AA 125 >=60 [facility] mL/min/1.73 [facility] sq. m Comment: Normal eGFR: >= 60 mL/min/1.73 m2 Note: The eGFR is calculated using the C KD-EPI equation. The eGFR declines with age. eGFR <60 mL/min/1.73 m2 is considered as "decreased". This equation should only be used for patients 18 and older. According to the National Kidney Found[employer] ion's Kidney Disease Outcome Quality Initiative (KDOQI) classification and 2012 Kidney Disease Improving Global Outcomes (KDIGO) Clinical Practice Guideline, the stage of CKD should be categorized based on estimated GFR. Stage Description GFR mL/min/1. 73 m2 1 Normal or high GFR >=90 2 Mildly decreased GFR 60-89 3a Mildly to moderately decreased GFR 45-59 3b Moderately to severely decreased GFR 30-44 4 Severely decreased GFR 15-29 5 Kidney failure <15 eGFR-LIN 108 >=60 mL/min/1.73 sq. m [place] MD [facility] Comment: Normal eGFR: >= 60 mL/min/1.73 m2 Note: The eGFR is calculated using the C KD-EPI equation. The eGFR declines with age. eGFR <60 mL/min/1.73 m2 is considered as "decreased". This equation should only be used for patients 18 and older. According to the National Kidney Found[employer] ion's Kidney Disease Outcome Quality Initiative (KDOQI) classification and 2012 Kidney Disease Improving Global Outcomes (KDIGO) Clinical Practice Guideline, the stage of CKD should be categorized based on estimated GFR. Stage Description GFR mL/min/1. 73 m2 1 Normal or high GFR >=90 2 Mildly decreased GFR 60-89 3a Mildly to moderately decreased GFR 45-59 3b Moderately to severely decreased GFR 30-44 4 Severely decreased GFR 15-29 5 Kidney failure <15 Specimen Anatomical Collection Method Collection Time Receive d Time (Source) Location / / Volume Laterality Blood 03/08/2021 6:43 PM 2 7:27 INSTRUMENT MAKER PM INSTRUMENT MAKER Charles Warren MD LAB BLOOD ORDERABLES Performing Organization Address City/State/ZIP Code Phon e Number [facility] Unless otherwise noted, [place] [address] [place] all lab tests performed by: Division of Pathology and Laboratory Medicine [address] [place] [address] [place] Fractionated Bilirubin (03/08/2021 6:43 PM INSTRUMENT MAKER)Only the most recent of8 results within the time period is included. athologist Signature Bili Total 0.8 <=1.2 mg/dL [facility] [place] Comment: Indocyanine Green (ICG) may cause falsel y elevated bilirubin results. Total and direct bilirubin must not be measured from samples containing indocyanine green. False elevation of total bilirubin can b e seen in patients with IgG concentrations above 28 g/L. Bili Direct 0.2 <=0.3 mg/dL [facility] Comment: Indocyanine Green (ICG) may cau se falsely elevated bilirubin results. Total and direct bilirubin must not be measure d from samples containing indocyanine green. Bili Indirect 0.6 0.0 - 0.9 mg/dL [place] MD [facility] Specimen Anatomical Collection Method Collection Time Receive d Time (Source) Location / / Volume Laterality Blood 03/08/2021 6:43 PM 2 7:27 INSTRUMENT MAKER PM INSTRUMENT MAKER Charles Warren MD LAB BLOOD ORDERABLES Performing Organization Address City/State/ZIP Code Phon e Number [facility] Unless otherwise noted, [address] all lab tests performed by: Division of Pathology and Laboratory Medicine [address] [place] [address] BUN (03/08/2021 6:43 PM INSTRUMENT MAKER)Only the most recent of10 resultswithin the time period is included. athologist Signature BUN 9 6 - 23 [facility] mg/dL [facility] Specimen Anatomical Collection Method Collection Time Receive d Time (Source) Location / / Volume Laterality Blood 03/08/2021 6:43 PM 2 7:27 INSTRUMENT MAKER PM INSTRUMENT MAKER Charles Warren MD LAB BLOOD ORDERABLES Performing Organization Address City/[facility]/ZIP Code Phon e Number [facility] Unless otherwise noted, [address] all lab tests performed by: Division of Pathology and Laboratory Medicine [address] [place] [address] (ABNORMAL) ALT (03/08/2021 6:43 PM INSTRUMENT MAKER)Only the most recent of8 resultswithin the time period is included. P athologist Signature ALT 43 (H) <=33 U/L [facility] [place] Specimen Anatomical Collection Method Collection Time Receive d Time (Source) Location / / Volume Laterality Blood 03/08/2021 6:43 PM 2 7:27 INSTRUMENT MAKER PM INSTRUMENT MAKER Charles Warren MD LAB BLOOD ORDERABLES Performing Organization Address City/State/ZIP Code Phon e Number [facility] Unless otherwise noted, [address] all lab tests performed by: Division of Pathology and Laboratory Medicine [address] [place] [address] (ABNORMAL) Aspartate Aminotransferase (03/08/2021 6:43 PM INSTRUMENT MAKER)Only the most recent of8 resultswithin the time period is included. P athologist Signature AST 34 (H) <=32 U/L [facility] [place] Specimen Anatomical Collection Method Collection Time Receive d Time (Source) Location / / Volume Laterality Blood 03/08/2021 6:43 PM 2 7:27 INSTRUMENT MAKER PM INSTRUMENT MAKER Charles Warren MD LAB BLOOD ORDERABLES Performing Organization Address City/State/ZIP Code Phon e Number [facility] Unless otherwise noted, [address] all lab tests performed by: Division of Pathology and Laboratory Medicine [address] [facility] Total Protein (03/08/2021 6:43 PM INSTRUMENT MAKER)Only the most recent of8 resultswithin the time period is included. P athologist Signature Total Protein 7.4 6.4 - 8.3 [facility] g/dL [facility] Specimen Anatomical Collection Method Collection Time Receive d Time (Source) Location / / Volume Laterality Blood 03/08/2021 6:43 PM 2 7:27 INSTRUMENT MAKER PM INSTRUMENT MAKER Charles Warren MD LAB BLOOD ORDERABLES Performing Organization Address City/[facility]/ZIP [facility] Phon e Number [facility] Unless otherwise noted, [address] all lab tests performed by: Division of Pathology and Laboratory Medicine [facility] [place] (ABNORMAL) Alkaline Phosphatase (03/08/2021 6:43 PM INSTRUMENT MAKER)Only the most recent of8 resultswithin the time period is included. P athologist Signature Alk Phos 124 (H) 35 - 104 [facility] U/L [facility] Specimen Anatomical Collection Method Collection Time Receive d Time (Source) Location / / Volume Laterality Blood 03/08/2021 6:43 PM 2 7:27 INSTRUMENT MAKER PM INSTRUMENT MAKER Charles Warren MD LAB BLOOD ORDERABLES Performing Organization Address City/[facility]/ZIP [facility] Phon e Number [facility] Unless otherwise noted, [address] all lab tests performed by: Division of Pathology and Laboratory Medicine [facility] [place] (ABNORMAL) Glucose Level (03/08/2021 6:43 PM INSTRUMENT MAKER)Only the most recent of7 resultswithin the time period is included. athologist Signature Glucose Level 136 (H) 70 - 99 [facility] mg/dL [facility] Comment: Effective 09/19/15, the glucose reference intervals have been updated based on [place] Diabetes Association guidelines (Standards of Medical Care in Diabetes 2016. Diabetes Care 2016; 39: S13-S22). Fasting blood glucose: Normal: 70-99 mg/dL Impaired fasting glucose (increased risk for diabetes or pre-diabetes): 100- 125 mg/dL Diabetes mellitus: >/=126 mg/dL Random blood glucose: Normal: 70-199 mg/dL Note: Random glucose >100 mg/dL is assoc iated with increased risk for diabetes Specimen Anatomical Collection Method Collection Time Receive d Time (Source) Location / / Volume Laterality Blood 03/08/2021 6:43 PM 2 7:27 INSTRUMENT MAKER PM INSTRUMENT MAKER Charles Warren MD LAB BLOOD ORDERABLES Performing Organization Address City/[facility] Phon e Number [facility] Unless otherwise noted, [address] all lab tests performed by: Division of Pathology and Laboratory Medicine [address] [place] Calcium Level (03/08/2021 6:43 PM INSTRUMENT MAKER)Only the most recent of7 resultswithin the time period is included. athologist Signature Calcium Lvl 9.3 8.4 - 10.2 [facility] mg/dL [facility] Specimen Anatomical Collection Method Collection Time Receive d Time (Source) Location / / Volume Laterality Blood 03/08/2021 6:43 PM 2 7:27 INSTRUMENT MAKER PM INSTRUMENT MAKER Charles Warren MD LAB BLOOD ORDERABLES Performing Organization Address City/[facility] Phon e Number [facility] Unless otherwise noted, [address] all lab tests performed by: Division of Pathology and Laboratory Medicine [address] [place] Albumin Level (03/08/2021 6:43 PM INSTRUMENT MAKER)Only the most recent of8 resultswithin the time period is included. athologist Signature Albumin Lvl 4.2 3.5 - 5.2 [facility] gm/dL [facility] Specimen Anatomical Collection Method Collection Time Receive d Time (Source) Location / / Volume Laterality Blood 03/08/2021 6:43 PM 2 7:27 INSTRUMENT MAKER PM INSTRUMENT MAKER Charles Warren MD LAB BLOOD ORDERABLES Performing Organization Address City/State/ZIP Code Phon e Number [facility] Unless otherwise noted, [address] all lab tests performed by: Division of Pathology and Laboratory Medicine [address] [place] [address] (ABNORMAL) Electrolyte Panel (03/08/2021 6:43 PM INSTRUMENT MAKER)Only the most recent of7 resultswithin the time period is included. athologist [facility] Sodium Lvl 138 136 - 145 [facility] mEq/L [facility] Potassium Lvl 3.5 3.5 - 5.1 [facility] mEq/L [facility] Chloride 102 98 - 107 [facility] mEq/L [facility] CO2 20 (L) 22 - 29 [facility] mEq/L [facility] Anion Gap 16 (H) 4 - 14 [facility] mEq/L [facility] Specimen Anatomical Collection Method Collection Time Receive d Time (Source) Location / / Volume Laterality Blood 03/08/2021 6:43 PM 2 7:27 INSTRUMENT MAKER PM INSTRUMENT MAKER Charles Warren MD LAB BLOOD ORDERABLES Performing Organization Address City/[facility]/ZIP Code Phon e Number [facility] Unless otherwise noted, [address] all lab tests performed by: Division of Pathology and Laboratory Medicine [address] [place] [address] Murine Typhus Antibodies, IgG (03/01/2021 4:40 PM INSTRUMENT MAKER) athologist [facility] Murine Typhus <1:64 Neg <1:64 [facility] Antibodies, IgG [facility]CER [place] Comment: Interpretation Table: Negative <1:64 Present or Past 1:64 Recent/Active >1:64 Test Performed by: [facility] [id number] Specimen Anatomical Collection Method Collection Time Receive d Time (Source) Location / / Volume Laterality Blood 03/01/2021 4:40 PM 2 5:24 INSTRUMENT MAKER PM INSTRUMENT MAKER Sylvie Ford MD LAB BLOOD ORDERABLES Performing Organization Address City/State/ZIP Code Phon e Number [facility] Unless otherwise noted, [address] all lab tests performed by: Division of Pathology and Laboratory Medicine [address] [place] [address] [place] Rapid Plasma Reagin (RPR) [Syphilis SCREENING] (03/01/2021 4:40 PM INSTRUMENT MAKER) [facility] [email or web address] Time Signature RPR Screening Non Reactive Non Reactive [facility] Specimen Anatomical Collection Method Collection Time Receive d Time (Source) Location / / Volume Laterality Blood 03/01/2021 4:40 PM 2 5:29 INSTRUMENT MAKER PM INSTRUMENT MAKER Sylvie Ford MD LAB BLOOD ORDERABLES Performing Organization Address City/[facility] Phon e Number [place] [phone] TMP RPR Path Interpretation (03/01/2021 4:40 PM INSTRUMENT MAKER) Component Value Ref Test Analysis Performed At [facility] Method Time Signature TMP RPR Path The Rapid [facility] Interpretation Plasma Reagin [facility] [facility] R (RPR) assay is negative. If a syphilis infection is suspected, please perform a Treponemal specific screening assay. Comment: MD Kristian RAZO [id number] Dictated by: MD Kristian RAZO [id number] Dictated Date/Time: 03.03.2021 9:[address] Transcribed Date/Time: 03.03.2021 9:20 AM INSTRUMENT MAKER Electronically Signed By: MD Kristian RAZO [id number] on 03.03.2021 9:20 AM C Specimen Anatomical Collection Method Collection Time Receive d Time (Source) Location / / Volume Laterality Blood 03/01/2021 4:40 PM 2 5:29 INSTRUMENT MAKER PM INSTRUMENT MAKER Sylvie Ford MD LAB BLOOD ORDERABLES Performing Organization Address [facility] Phon e Number [place] [phone] COVID-19 (SARS-CoV-2)Asymptomatic-LT (03/01/2021 6:12 AM INSTRUMENT MAKER) [facility] Myrl Method Time Signature COVID19 Not Detected Not Detected LIZBETH WINSTON (SARS-CoV-2) [facility] COVID19 SARS Inpatient LIZBETH WINSTON Indication Admission [facility] Covid 19 See Note IA Comment [facility] Comment: The cindy SARS-CoV-2 nucleic acid test f or use on the cindy Karo System is a real-time RT-PCR assay intended for the qualitative detection of SARS-CoV-2 (COVID-19) viral RNA in nasopharyngeal swabs from either individuals suspected of COVID-1 9 by their healthcare provider or from any individu al, including individuals without symptoms or other reasons to suspect COVID-19. A fact sheet for patients provided by the forge press operator ([employer]) can be reviewed at: https://www.fda.gov/media/856840/mickylojean monzon. A fact sheet for Health Care providers is provided by the forge press operator ([employer]) and can be reviewed at: https://www.fda.gov/media/570044/download Results must be interpreted within the c ontext of all relevant clinical and laboratory findings and should not form the sole basis for a diagnosis or treatment decision. Positive results do not rule out bacterial infection or co- infection with other viruses. Negative results do not preclud e SARS-CoV-2 infection and must be combined with clinical observations, patient history, and/or epidemiological information. This assay has been authorized by the A for use only under Emergency Use Authorization (EUA) in laboratories that have been CLIA-certified to perform moderate-complexity and high-complexity tests. The Microbiology Laboratory at [facility], CLIA Accreditation #[id number] a hi CAP Accreditation #[id number], verified the performance characteristics of this assay. Internal controls are used to monitor all stages of the test process. Specimen (Source) Anatomical Collection Method Collection Time Re ceived Time Location / / Volume Laterality Nasopharyngeal Swab 03/01/2021 6:12 03/01 AM INSTRUMENT MAKER 6:45 AM INSTRUMENT MAKER Chris Love MD MICROBIOLOGY - GENERAL ORDER ELAYNE Performing Organization Address City/State/ZIP Code Phon e Number [facility] Unless otherwise noted, [place] [address] [place] all lab tests performed by: Division of Pathology and Laboratory Medicine [facility]5 Gaeljocelyne [place] (ABNORMAL) .CBC (03/01/2021 3:00 AM INSTRUMENT MAKER)Only the most recent of8 resultswithin the time period is included. athologist Signature WBC 4.2 4.0 - 11.0 [facility] RBC 3.91 (L) 4.00 - [place] MD 5.50 M/[facility] Hgb 11.7 (L) 12.0 - IA MD 16.0 gm/dL [facility] Hct 34.0 (L) 37.0 - [place] MD 47.0 % [facility] MCV 87 82 - 98 [facility] MCH 29.9 27.0 - [place] MD 31.0 pg [facility] MCHC 34.4 31.0 - [place] MD 36.0 gm/dL [facility] RDW-SD 43.4 35.1 - [facility] 46.3 [facility] RDW-CV 13.7 12.0 - [facility] 15.5 % [facility] Platelet count 142 140 - 440 [facility] K/[facility] MPV 11.0 (H) 4.0 - 10.4 [facility] INRBC 0.0 <=0.0 % [facility] [place] Comment: The INRBC (instrument NRBC) value reflec ts the enumeration of nucleated red blood cells contained i n a 200uL sample of whole blood analyzed by the instrumen t. This value may differ from the NRBC value reported in a manual differential, which is based on a 100 cell differentia l. Specimen Anatomical Collection Method Collection Time Receive d Time (Source) Location / / Volume Laterality Blood 03/01/2021 3:00 AM 2 3:04 INSTRUMENT MAKER AM INSTRUMENT MAKER Hugh Barnhart MD LAB BLOOD ORDERABLES Performing Organization Address City/State/ZIP Code Phon e Number [facility] Unless [place], [place] [address] [place] all lab tests performed by: Division of Pathology and Laboratory Medicine [facility]5 [facility] Partial Thromboplastin Time (03/01/2021 3:00 AM INSTRUMENT MAKER)Only the most recent of2 resultswithin the time period is included. athologist Signature aPTT 29.5 24.7 - 36.8 [facility](s) [facility] [place] Specimen Anatomical Collection Method Collection Time Receive d Time (Source) Location / / Volume Laterality Blood 03/01/2021 3:00 AM 2 3:04 INSTRUMENT MAKER AM INSTRUMENT MAKER Hugh Barnhart MD LAB BLOOD ORDERABLES Performing Organization Address City/State/ZIP Code Phon e Number [facility] CANCER Unless otherwise noted, [address] all lab tests performed by: Division of Pathology and Laboratory Medicine [address] (ABNORMAL) Differential (03/01/2021 3:00 AM INSTRUMENT MAKER)Only the most recent of8 results within the time period is included. athologist Signature Total Cells 115 [facility] Neutrophil % 86.0 (H) 42.0 - [facility] 66.0 % [facility] Comment: The Neutrophil count includes B ands. Lymphocyte % 8.0 (L) 24.0 - 44.0 % [facility] Monocyte % 1.0 (L) 2.0 - 7.0 % [facility] Eosinophil % 2.0 1.0 - 4.0 % [facility] Metamyelocyte % 2.0 (H) <=0.0 % [facility] Comment: The Metamyelocyte count include s Myelocytes. Blasts % 1.0 (H) <=0.0 % [facility] Neutrophil Abs 3.61 1.70 - 7.30 K/uL [facility] Lymphocyte Abs 0.34 (L) 1.00 - 4.80 K/uL [facility] Monocyte Abs 0.04 (L) 0.08 - 0.70 K/uL IA MD [place]LE[place] JACKIE [facility] Eosinophil Abs 0.08 0.04 - 0.40 K/uL [facility] RBC Morph Normal Normal [facility] Slide Comments See Note (A) IA MD [place] [facility] Comment: PLT: Platelet morphology normal with occasional giant platelets seen Specimen Anatomical Collection Method Collection Time Receive d Time (Source) Location / / Volume Laterality Blood 03/01/2021 3:00 AM 2 3:04 INSTRUMENT MAKER AM INSTRUMENT MAKER Hugh Barnhart MD LAB BLOOD ORDERABLES Performing Organization Address City/State/ZIP Code Phon e Number [facility] CANCER Unless otherwise noted, [address] all lab tests performed by: Division of Pathology and Laboratory Medicine [address] (ABNORMAL) Prothrombin Time (03/01/2021 3:00 AM INSTRUMENT MAKER)Only the most recent of3 resultswithin the time period is included. P athologist Signature PT 14.6 (H) 11.5 - 13.9 [facility](s) [facility] INR 1.24 (H) 0.90 - 1.10 [facility] Specimen Anatomical Collection Method Collection Time Receive d Time (Source) Location / / Volume Laterality Blood 03/01/2021 3:00 AM 2 3:04 INSTRUMENT MAKER AM INSTRUMENT MAKER Hugh Barnhart MD LAB BLOOD ORDERABLES Performing Organization Address City/[facility]/ZIP Code Phon e Number [facility] Unless otherwise noted, [address] all lab tests performed by: Division of Pathology and Laboratory Medicine [facility]5 [place] (ABNORMAL) Phosphorus Level (03/01/2021 3:00 AM INSTRUMENT MAKER)Only the most recent of4 resultswithin the time period is included. P athologist Signature Phosphorus 2.3 (L) 2.5 - 4.5 [facility] mg/dL [facility] Specimen Anatomical Collection Method Collection Time Receive d Time (Source) Location / / Volume Laterality Blood 03/01/2021 3:00 AM 2 3:24 INSTRUMENT MAKER AM INSTRUMENT MAKER Hugh Barnhart MD LAB BLOOD ORDERABLES Performing Organization Address City/[facility]/ZIP [facility] Phon e Number [facility] CANCER Unless otherwise noted, [address] all lab tests performed by: Division of Pathology and Laboratory Medicine [facility]5 [place] Magnesium Level (03/01/2021 3:00 AM INSTRUMENT MAKER)Only the most recent of7 resultswithin the time period is included. P athologist Signature Magnesium 1.6 1.6 - 2.6 [facility] mg/dL [facility] Specimen Anatomical Collection Method Collection Time Receive d Time (Source) Location / / Volume Laterality Blood 03/01/2021 3:00 AM 2 3:24 INSTRUMENT MAKER AM INSTRUMENT MAKER Hugh Barnhart MD LAB BLOOD ORDERABLES Performing Organization Address City/State/ZIP Code Phon e Number [facility] CANCER Unless otherwise noted, [address] all lab tests performed by: Division of Pathology and Laboratory Medicine [facility] [place] [facility] Add-On Test (02/26/2021 10:17 AM INSTRUMENT MAKER)Only the most recent of2 resultswithin the time period is included. P athologist Signature Ordered Test Added [facility] Test Needed [place] [facility] Specimen Anatomical Collection Method Collection Time Receive d Time (Source) Location / / Volume Laterality Existing 02/26/2021 10:17 02/26/2021 AM INSTRUMENT MAKER 10:17 AM INSTRUMENT MAKER Ricardo Paniagua MD LAB BLOOD ORDERABLES Performing Organization Address [facility] Phon e Number [facility] CANCER Unless otherwise noted, [address] all lab tests performed by: Division of Pathology and Laboratory Medicine [address] [place] [address] [place] Glucose, Random (02/26/2021 12:38 AM INSTRUMENT MAKER)Only the most recent of3 resultswithin the time period is included. P athologist Signature Glucose Random 93 70 - 199 [facility] mg/dL [facility] Comment: Effective 09/19/15, the glucose reference intervals have been updated based on [place] Diabetes Association guidelines (Standards of Medical Care in Diabetes 2016. Diabetes Care 2016; 39: S13-S22). Fasting blood glucose: Normal: 70-99 mg/dL Impaired fasting glucose (increased risk for diabetes or pre-diabetes): 100- 125 mg/dL Diabetes mellitus: >/=126 mg/dL Random blood glucose: Normal: 70-199 mg/dL Note: Random glucose >100 mg/dL is assoc iated with increased risk for diabetes Specimen Anatomical Collection Method Collection Time Receive d Time (Source) Location / / Volume Laterality Blood 02/26/2021 12:38 02/26/2021 AM INSTRUMENT MAKER 12:54 AM INSTRUMENT MAKER Jamal Vaca MD LAB BLOOD ORDERABLES Performing Organization Address City/State/ZIP [facility] Phon e Number [facility] CANCER Unless otherwise noted, [address] all lab tests performed by: Division of Pathology and Laboratory Medicine [facility]5 [place] Anion Gap (02/26/2021 12:38 AM INSTRUMENT MAKER)Only the most recent of3 resultswithin the time period is included. P athologist Signature Anion Gap 12 4 - 14 [facility] mEq/L [facility] Specimen Anatomical Collection Method Collection Time Receive d Time (Source) Location / / Volume Laterality Blood 02/26/2021 12:38 02/26/2021 AM INSTRUMENT MAKER 12:54 AM INSTRUMENT MAKER Jamal Vaca MD LAB BLOOD ORDERABLES Performing Organization Address City/State/ZIP [facility] Phon e Number [facility] CANCER Unless otherwise noted, [address] all lab tests performed by: Division of Pathology and Laboratory Medicine [address] [place] [address] Clot Expiration Date (02/26/2021 12:38 AM INSTRUMENT MAKER)Only the most recent of2 results within the time period is included. [facility] Signature T & S 03/01/2021 [facility] Specimen Anatomical Collection Method Collection Time Receive d Time (Source) Location / / Volume Laterality Blood 02/26/2021 12:38 02/26/2021 2:43 AM INSTRUMENT MAKER AM INSTRUMENT MAKER Jamal Vaca MD BLOOD BANK TEST ORDERABLES Performing Organization Address City/[facility] Phon e Number [facility] Unless otherwise noted, [address] all lab tests performed by: Division of Pathology and Laboratory Medicine [address] [place] [address] TMP Interpretation Antibody Screen Negative (02/26/2021 12:38 AM INSTRUMENT MAKER)Only the most recent of2 resultswithin the time period is included. [facility] TMP Auto Neg At the [facility] plasma shows no evidence of RBC alloantibodi es. Comment: MD Kristian RAZO [id number] Dictated by: MD Kristian RAZO [id number] Dictated Date/Time: 02.26.2021 9:[address] Transcribed Date/Time: 02.26.2021 9:22 AM INSTRUMENT MAKER Electronically Signed By: MICHAELA WANG MD - [id number] on 02.26.2021 9:22 AM C Specimen Anatomical Collection Method Collection Time Receive d Time (Source) Location / / Volume Laterality Blood 02/26/2021 12:38 02/26/2021 2:43 AM INSTRUMENT MAKER AM INSTRUMENT MAKER Jamal Vaca MD BLOOD BANK TEST ORDERABLES Performing Organization Address City/[facility]/ZIP [facility] Phon e Number [facility] CANCER Unless otherwise noted, [address] all lab tests performed by: Division of Pathology and Laboratory Medicine [address] [place] [address] For Doc Review (02/26/2021 12:38 AM INSTRUMENT MAKER) athologist [facility] Peripheral DRSMEAR [facility] Specimen Anatomical Collection Method Collection Time Receive d Time (Source) Location / / Volume Laterality Blood 02/26/2021 12:38 02/26/2021 AM INSTRUMENT MAKER 12:46 AM INSTRUMENT MAKER Jamal Vaca MD LAB BLOOD ORDERABLES Performing Organization Address City/[facility] Phon e Number [facility] CANCER Unless otherwise noted, [address] all lab tests performed by: Division of Pathology and Laboratory Medicine [address] [place] [address] ABORh (02/26/2021 12:38 AM INSTRUMENT MAKER)Only the most recent of2 resultswithin the time period is included. athologist Signature ABORh. O POS [facility] Specimen Anatomical Collection Method Collection Time Receive d Time (Source) Location / / Volume Laterality Blood 02/26/2021 12:38 02/26/2021 2:43 AM INSTRUMENT MAKER AM INSTRUMENT MAKER Jamal Vaca MD BLOOD BANK TEST ORDERABLES Performing Organization Address City/[facility] Phon e Number [facility] CANCER Unless otherwise noted, [address] all lab tests performed by: Division of Pathology and Laboratory Medicine [address] [place] [address] Antibody Screen (02/26/2021 12:38 AM INSTRUMENT MAKER)Only the most recent of2 resultswithin the time period is included. athologist Signature ABSC. Negative ABSC [facility] Specimen Anatomical Collection Method Collection Time Receive d Time (Source) Location / / Volume Laterality Blood 02/26/2021 12:38 02/26/2021 2:43 AM INSTRUMENT MAKER AM INSTRUMENT MAKER Jamal Vaca MD BLOOD BANK TEST ORDERABLES Performing Organization Address City/[facility] Phon e Number [facility] CANCER Unless otherwise noted, [address] all lab tests performed by: Division of Pathology and Laboratory Medicine [address] Sodium Level (02/26/2021 12:38 AM INSTRUMENT MAKER)Only the most recent of3 resultswithin the time period is included. P athologist Signature Sodium Lvl 138 136 - 145 [facility] mEq/L [facility] Specimen Anatomical Collection Method Collection Time Receive d Time (Source) Location / / Volume Laterality Blood 02/26/2021 12:38 02/26/2021 AM INSTRUMENT MAKER 12:54 AM INSTRUMENT MAKER Jamal Vaca MD LAB BLOOD ORDERABLES Performing Organization Address City/[facility] Phon e Number [facility] CANCER Unless otherwise noted, [address] all lab tests performed by: Division of Pathology and Laboratory Medicine [address] Potassium Level (02/26/2021 12:38 AM INSTRUMENT MAKER)Only the most recent of3 resultswithin the time period is included. P athologist Signature Potassium Lvl 3.5 3.5 - 5.1 [facility] mEq/L [facility] Specimen Anatomical Collection Method Collection Time Receive d Time (Source) Location / / Volume Laterality Blood 02/26/2021 12:38 02/26/2021 AM INSTRUMENT MAKER 12:54 AM INSTRUMENT MAKER Jamal Vaca MD LAB BLOOD ORDERABLES Performing Organization Address City/[facility] Phon e Number [facility] CANCER Unless otherwise noted, [address] all lab tests performed by: Division of Pathology and Laboratory Medicine [address] [place] [address] Chloride Level (02/26/2021 12:38 AM INSTRUMENT MAKER)Only the most recent of3 resultswithin the time period is included. P athologist Signature Chloride 106 98 - 107 [facility] mEq/L [facility] Specimen Anatomical Collection Method Collection Time Receive d Time (Source) Location / / Volume Laterality Blood 02/26/2021 12:38 02/26/2021 AM INSTRUMENT MAKER 12:54 AM INSTRUMENT MAKER Jamal Vaca MD LAB BLOOD ORDERABLES Performing Organization Address City/State/ZIP Code Phon e Number [facility] CANCER Unless otherwise noted, [address] all lab tests performed by: Division of Pathology and Laboratory Medicine [address] [place] [address] (ABNORMAL) Carbon Dioxide Level (02/26/2021 12:38 AM INSTRUMENT MAKER)Only the most recent of 3 resultswithin the time period is included. athologist Signature CO2 20 (L) 22 - 29 [facility] mEq/L [facility] Specimen Anatomical Collection Method Collection Time Receive d Time (Source) Location / / Volume Laterality Blood 02/26/2021 12:38 02/26/2021 AM INSTRUMENT MAKER 12:54 AM INSTRUMENT MAKER Jamal Vaca MD LAB BLOOD ORDERABLES Performing Organization Address City/[facility]/ZIP Code Phon e Number [facility] CANCER Unless otherwise noted, [address] all lab tests performed by: Division of Pathology and Laboratory Medicine [address] [place] [address] US Abdomen Complete (02/25/2021 1:08 PM INSTRUMENT MAKER) Anatomical Region Laterality Modality Abdomen Ultrasound Specimen (Source) Anatomical Collection Method Collection Time Re ceived Time Location / / Volume Laterality 02/25/2021 1:40 PM INSTRUMENT MAKER Impressions 02/25/2021 1:46 PM INSTRUMENT MAKER No intrahepatic mass or biliary ductal d ilation. 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 Findings: The liver is borderline lying enlarged a t 18 cm with coarse echogenicity but without a measurable mass or biliary ductal dilation. The portal and hepatic venous flow is in the normal direction. The gallbladder has been resected. The c ommon bile duct is 3 mm. A portion of the pancreatic neck is seen and appears normal. The rest of pancreas is not seen secondary to overlying bowel gas. The spleen is at the upper limits normal size and without a measurable mass. The 13 cm long kidneys have normal echog enicity without measurable mass or hydronephrosis. Procedure Note John Candelario MD - 02/25/2021Forma tting of this note might be different from the original. 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 Findings: The liver is borderline lying enlarged a t 18 cm with coarse echogenicity but without a measurable mass or biliary ductal dilation. The portal and hepatic venous flow is in the normal direction. The gallbladder has been resected. The c ommon bile duct is 3 mm. A portion of the pancreatic neck is seen and appears normal. The rest of pancreas is not seen secondary to overlying bowel gas. The spleen is at the upper limits normal size and without a measurable mass. The 13 cm long kidneys have normal echog enicity without measurable mass or hydronephrosis. IMPRESSION: No intrahepatic mass or biliary ductal d ilation. Raza Powers MD IMG US ORDERABLES CT Head without Contrast (02/25/2021 3:30 AM INSTRUMENT MAKER) Anatomical Region Laterality Modality Head Computed Tomography Specimen (Source) Anatomical Collection Method Collection Time Re ceived Time Location / / Volume Laterality 02/25/2021 3:59 AM INSTRUMENT MAKER Impressions 02/25/2021 6:22 AM INSTRUMENT MAKER No acute intracranial abnormality. I personally reviewed these image(s) sandi ng with the resident's/fellow's interpretations, certify that if a procedure was performed I was physically present, and agree with the final report. Narrative 02/25/2021 6:22 AM INSTRUMENT MAKER FULL RESULT: EXAMINATION: CT HEAD WO CONTRAST on 2021 3:30 AM COMPARISON: None HISTORY: Malignant neoplasm of overlappi ng sites of cervix uteri INDICATION: No MR contraindication, Head ache, new onset, No gadolinium contraindication, No iodinated contrast contraindication, Headache, thunderclap TECHNIQUE: CT scan of the brain was perf ormed without intravenous contrast as per departmental protocol. FINDINGS: INTRACRANIAL: The brain parenchyma is un remarkable. The lezama-white matter differentiation is maintained. There is no acute territorial infarction. There is no intra-axial or extra-axial h emorrhage. No midline shift or mass effect seen. There is no hydrocephalus. CALVARIA: The calvaria and extracranial soft tissues are unremarkable. ORBITS: The orbital structures are unrem arkable. SINUSES: The paranasal sinuses and masto id air cells are clear. Procedure Note Magdalena Daily MD - 02/25/2021Fo rmatting of this note might be different from the original. FULL RESULT: EXAMINATION: CT HEAD WO CONTRAST on 2021 3:30 AM COMPARISON: None HISTORY: Malignant neoplasm of overlappi ng sites of cervix uteri INDICATION: No MR contraindication, Head ache, new onset, No gadolinium contraindication, No iodinated contrast contraindication, Headache, thunderclap TECHNIQUE: CT scan of the brain was perf ormed without intravenous contrast as per departmental protocol. FINDINGS: INTRACRANIAL: The brain parenchyma is un remarkable. The lezama-white matter differentiation is maintained. There is no acute territorial infarction. There is no intra-axial or extra-axial h emorrhage. No midline shift or mass effect seen. There is no hydrocephalus. CALVARIA: The calvaria and extracranial soft tissues are unremarkable. ORBITS: The orbital structures are unrem arkable. SINUSES: The paranasal sinuses and masto id air cells are clear. IMPRESSION: No acute intracranial abnormality. I personally reviewed these image(s) sandi ng with the resident's/fellow's interpretations, certify that if a procedure was performed I was physically present, and agree with the final report. Jamal Vaca MD IMG CT ORDERABLES (ABNORMAL) Urinalysis with Microscopic (02/24/2021 11:09 PM INSTRUMENT MAKER)Only the most recent of4 resultswithin the time period is included. P athologist Signature UA WBC 90 (H) 0 - 2 /HPF [facility] UA RBC 17 (H) 0 - 2 /HPF [facility] UA Mucous TRACE Not [facility] Seen-Trace [facility] /[facility] UA Bacteria OCC NOT SEEN [facility] /[facility] UA Squam Epi OCC None-Occasi [facility] onal /[facility] Specimen Anatomical Collection Method Collection Time Receive d Time (Source) Location / / Volume Laterality Urine 02/24/2021 11:09 02/24/2021 PM INSTRUMENT MAKER 11:12 PM INSTRUMENT MAKER Narrative [facility] - 11:23 PM INSTRUMENT MAKER Some reporting parameters within the Urinalysis test have changed due to the implementation of new in strumentation in the [facility], allowi ng greater sensitivity of measurement. Urinalysis results reported by the [facility] using existing instrumentation, as well as Urinalysis t esting performed manually or by backup methodology at the [facility] will remain relatively unchanged. New reporting parameters and units will now be reported for all campuses. Raza Powers MD URINE ORDERABLES Performing Organization Address City/[facility]/ZIP Code Phon e Number [facility] Unless otherwise noted, [address] all lab tests performed by: Division of Pathology and Laboratory Medicine [email or web address] [place] (ABNORMAL) Urinalysis w/Microscopic if Indicated (02/24/2021 11:09 PM INSTRUMENT MAKER)Only the most recent of4 resultswithin the time period is included. [facility] gist Method Time Signature UA Color Yellow Straw-Yel [facility] UA Appear Hazy (A) Clear [facility] UA Glucose NEG NEG mg/dL [facility] UA Bili NEG NEG [facility] UA Ketones NEG NEG mg/dL [facility] UA Spec Grav 1.016 1.003 - [facility] 1.035 [facility] UA Blood Small (A) NEG [facility] UA pH 6.0 5.0 - 9.0 [facility] UA Protein 100 (A) NEG mg/dL [facility] UA Urobilinogen NEG NEG [facility] UA Nitrite NEG NEG [facility] UA Leuk Est Small (A) NEG [facility] Specimen Anatomical Collection Method Collection Time Receive d Time (Source) Location / / Volume Laterality Urine 02/24/2021 11:09 02/24/2021 PM INSTRUMENT MAKER 11:12 PM INSTRUMENT MAKER Raza Powers MD URINE ORDERABLES Performing Organization Address City/State/ZIP Code Phon e Number [facility] Unless otherwise noted, [address] all lab tests performed by: Division of Pathology and Laboratory Medicine [address] [employer] [place] (ABNORMAL) Urine Culture (02/24/2021 11:09 PM INSTRUMENT MAKER)Only the most recent of3 resultswithin the time period is included. Component Value Ref Test Analysis Performed At [facility] gist Range Method Time Signature Final Report <10,000 cfu/ml [place] Gram Negative Rods [place] () [facility] Path Review - The results have been review ed and electronically signed by Pathologist: [place] Urine Mirta Metcalf MD, PhD #[id number] [place] [facility] Specimen Anatomical Collection Method Collection Time Receive d Time (Source) Location / / Volume Laterality Urine 02/24/2021 11:09 02/25/2021 PM INSTRUMENT MAKER 12:07 AM INSTRUMENT MAKER Raza Powers MD MICROBIOLOGY - GENERAL ORDER ELAYNE Performing Organization Address City/State/ZIP Code Phon e Number [facility] Unless otherwise noted, [address] all lab tests performed by: Division of Pathology and Laboratory Medicine Roque Swanson MD Darnell-Guerra Virus Quantitative PCR Collection, Blood (02/24/2021 10:58 PM INSTRUMENT MAKER) P athologist Signature Molecular Yes [facility] (Received) Specimen Anatomical Collection Method Collection Time Receive d Time (Source) Location / / Volume Laterality Blood 02/24/2021 10:58 02/25/2021 PM INSTRUMENT MAKER 10:25 AM INSTRUMENT MAKER Raza RICHARDSON MD BLOOD COLLECTIONS Performing Organization Address City/[facility] Phon e Number [facility] Unless otherwise noted, [address] all lab tests performed by: Division of Pathology and Laboratory Medicine Roque Swanson Hepatitis B Core Total Antibody (02/24/2021 10:58 PM INSTRUMENT MAKER) athologist [facility] HBc Total Negative Negative [place] Ab-[facility] Comment: Test Performed by: [facility] [place] [address] [address] Unpaid Intern: Jonel Cox M.D. Ph. D.; CLIA# [id number] Specimen Anatomical Collection Method Collection Time Receive d Time (Source) Location / / Volume Laterality Blood 02/24/2021 10:58 02/25/2021 PM INSTRUMENT MAKER 12:03 AM INSTRUMENT MAKER Raza Powers MD LAB BLOOD ORDERABLES Performing Organization Address City/[facility]/ZIP [facility] Phon e Number [facility] Unless otherwise noted, [address] all lab tests performed by: Division of Pathology and Laboratory Medicine [facility]5 Gael Swanson (ABNORMAL) Antinuclear Antibody (DICK) HEp-2 Substrate, IgG (02/24/2021 10:58 PM INSTRUMENT MAKER) [facility] Method Time Signature DICK HEp-2 Positive <1:80 IA MD Substrate 1:640 (A) ([facility] ) [facility] Comment: ADDITIONAL INFORMATIO N Method: Immunofluorescence using HEp-2 c ellular substrate. DICK Titer 1 1:640 IA MD YIP CAN [facility] DICK Pattern 1 Speckled [place] [facility] [place] Comment: Test Performed by: [facility] [address] [address] Unpaid Intern: Jonel Cox M.D. Ph. D.; CLIA# [id number] Specimen Anatomical Collection Method Collection Time Receive d Time (Source) Location / / Volume Laterality Blood 02/24/2021 10:58 02/24/2021 PM INSTRUMENT MAKER 11:54 PM INSTRUMENT MAKER Raza Powers MD LAB BLOOD ORDERABLES Performing Organization Address [facility] Phon e Number [facility] Unless otherwise noted, [address] all lab tests performed by: Division of Pathology and Laboratory Medicine [facility]5 Gael Swanson TMP HIV 1/2 Ag&Ab [facility] (02/24/2021 10:58 PM INSTRUMENT MAKER) [facility] Method Time Signature HIV 1/2 Ag&Ab Negative for MARICEL [facility] HIV-1 antigen [facility] and HIV-1/HIV-2 antibodies. No laboratory evidence of HIV infection. If acute HIV infection is suspected, consider testing for HIV-1 RNA. Comment: MICHAELA WANG MD - [id number] Dictated by: MD Kristian RAZO [id number] Dictated Date/Time: 02.26.2021 9:[address] Transcribed Date/Time: 02.26.2021 9:15 AM INSTRUMENT MAKER Electronically Signed By: MD Kristian RAZO [id number] on 02.26.2021 9:15 AM C Specimen Anatomical Collection Method Collection Time Receive d Time (Source) Location / / Volume Laterality Blood 02/24/2021 10:58 02/25/2021 4:43 PM INSTRUMENT MAKER PM INSTRUMENT MAKER Raza Powers MD LAB BLOOD ORDERABLES Performing Organization Address City/[facility] Phon e Number [facility] [address] [address] Hepatitis A Antibody IgG (02/24/2021 10:58 PM INSTRUMENT MAKER) athologist Signature Hepatitis A Negative [facility] Comment: Result indicates no past exposure or imm unity to hepatitis A infection. REFERENCE VALUE------ Unvaccinated: Negative Vaccinated: Positive Test Performed by: [facility] [address] [place] [address] Unpaid Intern: Jonel Cox M.D. Ph. D.; CLIA# [id number] Specimen Anatomical Collection Method Collection Time Receive d Time (Source) Location / / Volume Laterality Blood 02/24/2021 10:58 02/25/2021 PM INSTRUMENT MAKER 12:03 AM INSTRUMENT MAKER Raza Powers MD LAB BLOOD ORDERABLES Performing Organization Address City/State/[facility] Phon e Number [facility] Unless otherwise noted, [place], [place] [id number] [place] [address] all lab tests performed by: Division of Pathology and Laboratory Medicine [facility] Gaeljocelyne Swanson HIV-1/2 Antigen and Antibodies, Fourth Generation (02/24/2021 10:58 PM INSTRUMENT MAKER) Patholo gist Method Time Signature HIV 1/2 Ag & Non Reactive Non Reactive [facility] Ab, 4th Gen [facility] CENTER Comment: Performed at: [facility] [address] [place] [id number] Specimen Anatomical Collection Method Collection Time Receive d Time (Source) Location / / Volume Laterality Blood 02/24/2021 10:58 02/25/2021 4:43 PM INSTRUMENT MAKER PM INSTRUMENT MAKER Raza Powers MD LAB BLOOD ORDERABLES Performing Organization Address City/State/[facility] Code Phon e Number [facility] [address] [place] [address] [place] Miscellaneous Test (02/24/2021 10:58 PM INSTRUMENT MAKER) [facility] Method Time Signature Chase RL Test See Footnote [facility] Comment: Test Result Flag Unit RefValue Smooth Muscle Ab Screen, S Nega tive Negative Negative: No further testing will be performed ADDITIONAL INFO RMATION This test was developed and its pe rformance characteristics determined by [facility] in a man ner consistent with CLIA requirements. This test has not be en cleared or approved by the U.S. Food and Drug Administrat ion. Test Performed by: [facility] [address] [place] [address] Unpaid Intern: Jonel Chilel Ph.D.; CLIA# [id number] Specimen Anatomical Collection Method Collection Time Receive d Time (Source) Location / / Volume Laterality Varies 02/24/2021 10:58 02/25/2021 2:05 PM INSTRUMENT MAKER PM INSTRUMENT MAKER Narrative [facility] - 11:59 AM INSTRUMENT MAKER Smooth Muscle Antibody Screen, Serum Raza Powers MD LAB BLOOD ORDERABLES Performing Organization Address City/State/[facility] Phon e Number [facility] Unless otherwise noted, [place] [address] CENTER all lab tests performed by: Division of Pathology and Laboratory Medicine [address] [place] [address] [place] Hepatitis C Virus RNA Detect/Quant (02/24/2021 10:58 PM INSTRUMENT MAKER) [facility] HepC RNA PCR Undetected Undetected [facility] IU/mL [facility] Comment: Result in log IU/mL is Undetected. ADDITIONAL INFORMATIO N The quantification range of this assay i s 15 to 100,000,000 IU/mL (1.18 log to 8.00 log IU/mL). Test ing was performed using the cindy HCV test ([employer] with the cindy 6800 System. Test Performed by: [address] [id number] Unpaid Intern: Jonel Cox M.D. Ph. D.; CLIA# [id number] Specimen Anatomical Collection Method Collection Time Receive d Time (Source) Location / / Volume Laterality Blood 02/24/2021 10:58 02/25/2021 PM INSTRUMENT MAKER 12:03 AM INSTRUMENT MAKER Raza Powers MD LAB BLOOD ORDERABLES Performing Organization Address City/State/ZIP Code Phon e Number [facility] Unless otherwise noted, [place] [address] [place] all lab tests performed by: Division of Pathology and Laboratory Medicine [facility] [place] Sw[place] HBV DNA Quant (02/24/2021 10:58 PM INSTRUMENT MAKER) [facility] HBV DNA Undetected Undetected [facility] IU/mL [facility] Comment: Result in log IU/mL is Undetected. ADDITIONAL INFORMATIO N The quantification range of this assay i s 10 to 1,000,000,000 IU/mL (1.00 log to 9.00 lo g IU/mL). Testing was performed using the cindy HBV test ( [employer] with the cindy 6800 Syste m. Test Performed by: [facility] [email or web address] [address] [place] [address] Unpaid Intern: Jonel Cox M.D. Ph. D.; CLIA# [id number] Specimen Anatomical Collection Method Collection Time Receive d Time (Source) Location / / Volume Laterality Blood 02/24/2021 10:58 02/25/2021 PM INSTRUMENT MAKER 12:03 AM INSTRUMENT MAKER Raza Powers MD LAB BLOOD ORDERABLES Performing Organization Address City/State/ZIP Code Phon e Number [facility] Unless otherwise noted, [address] all lab tests performed by: Division of Pathology and Laboratory Medicine [facility]5 [facility] CMV Quant PCR (02/24/2021 10:58 PM INSTRUMENT MAKER) [facility] Method Time Signature CMV DNA PCR Target Not Target Not IA MD Detected Detected [facility] IU/mL CANCER CENTER Comment: Normal Range: Target Not Detected. Reportable Range: 34.5 to 4,000,000 CM V DNA IU/mL; values between 4,000,000 to 10,000,000 CMV DNA IU/mL may be reported but these should be interpreted with caution as this range of the assay has not been internally verified. The clinical s ignificance of CMV levels at 4,000,000 IU/ml verses those above 4,000,000 is unclear. Results are expressed in CMV DNA IU/ml p lasma. Methodology: The extraction and quanti tation of cytomegalovirus (CMV) DNA in human plasma is performed using the CINDY 6800 System. Amplification of viral DNA is achieved using polymerase chain reacti on (PCR). Internal controls are included to assess for possible amplification inhibitors. I f inhibition is detected, the specimen is tested again and if inhibition is confirmed the specimen is resulted as "Invalid". When an "Invalid" results occurs, it is recommended to wait a minimum of 7-10 days before submitting a new specimen for testing. This is an FDA-approved assay and its pe rformance characteristics were verified by the microbiology laboratory at the [facility]. Results must be interpreted within th e context of all relevant clinical and l aboratory findings. Specimen Anatomical Collection Method Collection Time Receive d Time (Source) Location / / Volume Laterality Blood 02/24/2021 10:58 02/25/2021 PM INSTRUMENT MAKER 12:08 AM INSTRUMENT MAKER Raza Powers MD LAB BLOOD ORDERABLES Performing Organization Address City/State/ZIP Code Phon e Number [facility] Unless otherwise noted, [address] all lab tests performed by: Division of Pathology and Laboratory Medicine [address] [place] [address] Hepatitis C Virus Ab (02/24/2021 10:58 PM INSTRUMENT MAKER) [facility] Method Time Signature HCVAb. Non Reactive Non Reactive [facility] [place] Comment: Antibody detection in the immunocompromi sed and immunosuppressed population may be delayed or absent entirely. Therefore serial testing, correlation with other clinical findings, and supplemental testin g (if available) should be taken into co nsideration when interpreting the results. Performed at: [facility] [address] [place] [id number] Specimen Anatomical Collection Method Collection Time Receive d Time (Source) Location / / Volume Laterality Blood 02/24/2021 10:58 02/25/2021 4:43 PM INSTRUMENT MAKER PM INSTRUMENT MAKER Raza Powers MD LAB BLOOD ORDERABLES Performing Organization Address City/[facility]/ZIP Code Phon e Number [facility] [address] [address] Hepatitis B Surface Ag w/Confirm (02/24/2021 10:58 PM INSTRUMENT MAKER) athologist [facility] Hep Bs Ag-[place] Negative Negative [facility] Comment: Test Performed by: [facility] [address] [address] Unpaid Intern: Jonel Cox M.D. Ph. D.; CLIA# [id number] Specimen Anatomical Collection Method Collection Time Receive d Time (Source) Location / / Volume Laterality Blood 02/24/2021 10:58 02/25/2021 PM INSTRUMENT MAKER 12:03 AM INSTRUMENT MAKER Raza Powers MD LAB BLOOD ORDERABLES Performing Organization Address City/State/ZIP Code Phon e Number [facility] Unless otherwise noted, [place], [place] [id number] [place] [address] all lab tests performed by: Division of Pathology and Laboratory Medicine [address] [place] [address] Hepatitis B Total Ig Core Ab (SCREENING) (anti-HBc total Ig; HBcAb total Ig) (02/24/2021 10:58 PM INSTRUMENT MAKER)Only the most recent of2 resultswithin the time period is included. athologist [facility] HBcAb Received See Note [facility] Comment: HBcAb was sent to a reference l ab for testing. Expect results on Hepatitis B Core Total Ab within 96 hours. Specimen Anatomical Collection Method Collection Time Receive d Time (Source) Location / / Volume Laterality Blood 02/24/2021 10:58 02/25/2021 PM INSTRUMENT MAKER 12:03 AM INSTRUMENT MAKER Raza Powers MD LAB BLOOD ORDERABLES Performing Organization Address [facility] Phon e Number [facility] Unless otherwise noted, [address] all lab tests performed by: Division of Pathology and Laboratory Medicine [facility] Gael Swanson CMV Ab IgG+IgM Path Review (02/24/2021 10:58 PM INSTRUMENT MAKER) Component Value Ref Test Analysis Performed At [facility] gist Range Method Time Signature CMV Panel AL No evidence of previous CMV infection. If primary infection is suspected, LIZBETH WINSTON repeat testing in 8-14 days. A NDERSON Reviewed and Electronically signed by Pathologist: CANCER Mirta Metcalf MD, PhD #[id number] CENTER Comment: Test performed by an immunoassay intende d for the qualitative detection of IgG and IgM antibodies to Cytomegalovirus (CMV) in human serum. When equivocal results are obtained, ano ther specimen should be collected 10-14 days later. MIRTA METCALF MD, PhD - [id number] Dictated by: MIRTA METCALF MD, PhD - [phone] Dictated Date/Time: 02.26.2021 9:[address] Transcribed Date/Time: 02.26.2021 9:16 AM INSTRUMENT MAKER Electronically Signed By: MIRTA METCALF MD, PhD - [id number] on 02.26.2021 9:16 AM C Specimen Anatomical Collection Method Collection Time Receive d Time (Source) Location / / Volume Laterality Blood 02/24/2021 10:58 02/25/2021 PM INSTRUMENT MAKER 11:38 AM INSTRUMENT MAKER Raza Powers MD MICROBIOLOGY - GENERAL ORDER ELAYNE Performing Organization Address City/[facility] Phon e Number [facility] Unless otherwise noted, [address] all lab tests performed by: Division of Pathology and Laboratory Medicine [facility] Gael Swanson HSV 1+2 Quant, Plasma (02/24/2021 10:58 PM INSTRUMENT MAKER) [facility] Method Time Signature HSV1 Not Detected Not Detected [facility] Plasma-Viraco copies/mL [facility] HSV2 Not Detected Not Detected [facility] Plasma-Viraco copies/mL [facility] Comment: TESTING PERFORMED AT LOW VOLUME ON PLASM A SPECIMEN FOR HSV 1 & 2, MAY AFFECT RESULTS. Assay Range for HSV 1 is 37 copies/mL to 1.00E+08 copies/mL Assay Range for HSV 2 is 73 copies/mL to 1.00E+08 copies/mL The limit of quantitation (LOQ) is 37 (H SV 1) and 73 (HSV 2) copies/mL. HSV DNA detected below the LO Q will be reported as Detected:<37 copies/mL (HSV 1) or Detect ed:<73 copies/mL (HSV 2). This test was developed and its performa nce characteristics determined by [employer]. It has n ot been cleared or approved by the U.S. Food and Drug Administration . Results should be used in conjunction with clinical findings, and should not form the sole basis for a diagnosis or treatment decis ion. Performed At: [facility] [address] [place] [address] Quarry Equipment Operator: Jorge A Urrutia Ph.D., B CLD (ABB) CLIA#: [id number] Phone: Specimen Anatomical Collection Method Collection Time Receive d Time (Source) Location / / Volume Laterality Blood 02/24/2021 10:58 02/25/2021 PM INSTRUMENT MAKER 11:08 AM INSTRUMENT MAKER Raza Powers MD MICROBIOLOGY - GENERAL ORDER ELAYNE Performing Organization Address City/State/ZIP Code Phon e Number [facility] Unless otherwise noted, [place], [place] [id number] [place] [address] all lab tests performed by: Division of Pathology and Laboratory Medicine [facility] Gael Swanson HSV Serology Path Review (02/24/2021 10:58 PM INSTRUMENT MAKER) Patholo gist Method Time Signature HSV 1/2 AL Negative IgG results for HSV -1 and HSV-2. Indicates no previous HSV infection. LIZBETH WINSTON If primary infection is susp ected, repeat testing should be performed in 8-14 days. PHI Reviewed and Electronically signed by Pathologist: JULINANE Metcalf MD, PhD #[id number] CENTER Comment: Test performed by an immunoassay intende d for the qualitative detection of IgG antibodies to Herpes Simplex Virus 1 (HSV1) and Herpes Simplex Virus 2 (HSV2) in human serum. When equivocal results are obtained, ano ther specimen should be collected 10-14 days later. MIRTA METCALF MD, PhD - [id number] Dictated by: MIRTA METCALF MD, PhD - 10 [phone] Dictated Date/Time: 02.26.2021 9:[address] Transcribed Date/Time: 02.26.2021 9:16 AM INSTRUMENT MAKER Electronically Signed By: MIRTA METCALF MD, PhD - [id number] on 02.26.2021 9:16 AM C Specimen Anatomical Collection Method Collection Time Receive d Time (Source) Location / / Volume Laterality Blood 02/24/2021 10:58 02/25/2021 PM INSTRUMENT MAKER 11:38 AM INSTRUMENT MAKER Raza Powers MD MICROBIOLOGY - GENERAL ORDER ELAYNE Performing Organization Address City/State/ZIP Code Phon e Number [facility] Unless otherwise noted, [place] [address] [place] all lab tests performed by: Division of Pathology and Laboratory Medicine [address] [place] [address] Darnell Guerra Virus Panel Path Review (02/24/2021 10:58 PM INSTRUMENT MAKER) Component Value Ref Test Analysis Performed At [facility] Range Method Time Signature EBV Panel AL EBV serology suggests past i nfection. Interpret results with caution if LIZBETH WINSTON patient is receiving IVIG. AND ERSON Reviewed and Electronically signed by Pathologist: JULIANNE Metcalf MD, PhD #[id number] CENTER Comment: Test performed by immunoassay intended f or the qualitative detection of IgG and IgM antibodies to the viral capsid antigen (VCA) of the Darnell-Guerra virus (EBV) and IgG antibodies to the EBV nuclear antigen (EBNA). When equivocal results are obtained, ano ther specimen should be collected 10-14 days later. MIRTA METCALF MD, PhD - [id number] Dictated by: MIRTA METCALF MD, PhD - [phone] Dictated Date/Time: 02.26.2021 9:[address] Transcribed Date/Time: 02.26.2021 9:16 AM INSTRUMENT MAKER Electronically Signed By: MIRTA METCALF MD, PhD - [id number] on 02.26.2021 9:16 AM C Specimen Anatomical Collection Method Collection Time Receive d Time (Source) Location / / Volume Laterality Blood 02/24/2021 10:58 02/25/2021 PM INSTRUMENT MAKER 11:38 AM INSTRUMENT MAKER Raza Powers MD MICROBIOLOGY - GENERAL ORDER ELAYNE Performing Organization Address City/State/ZIP Code Phon e Number [facility] Unless otherwise noted, [address] all lab tests performed by: Division of Pathology and Laboratory Medicine Roque Swanson CMV Ab IgG+IgM (02/24/2021 10:58 PM INSTRUMENT MAKER) P athologist Signature CMV IgM Int Negative Negative [facility] CMV IgG Int Negative Negative [facility] Specimen Anatomical Collection Method Collection Time Receive d Time (Source) Location / / Volume Laterality Blood 02/24/2021 10:58 02/25/2021 PM INSTRUMENT MAKER 12:12 AM INSTRUMENT MAKER Raza Powers MD MICROBIOLOGY - GENERAL ORDER ELAYNE Performing Organization Address City/State/[facility] Phon e Number [facility] Unless otherwise noted, [address] all lab tests performed by: Division of Pathology and Laboratory Medicine Roque Swanson MD Darnell-Guerra Virus Quantitative PCR Interpretation and Report (02/24/2021 10:58 PM INSTRUMENT MAKER) Specimen (Source) Anatomical Collection Method Collection Time Re ceived Time Location / / Volume Laterality 02/24/2021 10:58 PM INSTRUMENT MAKER Narrative This result has an attachment that is no t available. Raza Powers MD, MDA [facility] ([facility] ) Tissue Transglutaminase Ab IgA, IgG (02/24/2021 10:58 PM INSTRUMENT MAKER) athologist Signature TTG IgA-[place] <1.2 <4.0 [facility] (Negative) CANCER CENTER unit/mL TTG IgG-[place] 1.2 <6.0 [facility] (Negative) [facility] unit/mL Comment: Test Performed by: [facility] [phone] Unpaid Intern: Jonel Cox M.D. Ph. D.; CLIA# [id number] Specimen Anatomical Collection Method Collection Time Receive d Time (Source) Location / / Volume Laterality Blood 02/24/2021 10:58 02/24/2021 PM INSTRUMENT MAKER 11:54 PM INSTRUMENT MAKER Raza Powers MD LAB BLOOD ORDERABLES Performing Organization Address City/[facility]/ZIP Code Phon e Number [facility] Unless otherwise noted, [address] all lab tests performed by: Division of Pathology and Laboratory Medicine Roque Swanson Liver/Kidney Microsome Type 1 Ab (02/24/2021 10:58 PM INSTRUMENT MAKER) athologist [facility] Claire/Kid Micro <5.0 <=20.0 [facility] 1-[place] (Negative) CANCER CENTER Units Comment: Test Performed by: [facility] [address] [place] [address] Unpaid Intern: Jonel Cox M.D. Ph. D.; CLIA# [id number] Specimen Anatomical Collection Method Collection Time Receive d Time (Source) Location / / Volume Laterality Blood 02/24/2021 10:58 02/24/2021 PM INSTRUMENT MAKER 11:54 PM INSTRUMENT MAKER Raza Powers MD LAB BLOOD ORDERABLES Performing Organization Address City/State/ZIP Code Phon e Number [facility] Unless otherwise noted, [address] all lab tests performed by: Division of Pathology and Laboratory Medicine Roque Swanson HSV 1+2 Antibody (02/24/2021 10:58 PM INSTRUMENT MAKER) Patholo gist Method Time Signature HSV-1 IgG Negative Negative [facility] HSV-2 IgG Negative Negative [facility] Specimen Anatomical Collection Method Collection Time Receive d Time (Source) Location / / Volume Laterality Blood 02/24/2021 10:58 02/25/2021 PM INSTRUMENT MAKER 12:12 AM INSTRUMENT MAKER Raza Powers MD LAB BLOOD ORDERABLES Performing Organization Address City/[facility] Phon e Number [place] PHI CANCER Unless otherwise noted, [address] all lab tests performed by: Division of Pathology and Laboratory Medicine [address] [place] [address] Hepatitis E IgM Ab (02/24/2021 10:58 PM INSTRUMENT MAKER) athologist [facility] HEV IgM Ab Negative Negative LIZBETH WINSTON [facility] Comment: If clinical suspicion persists, submit n ew specimen for retesting in 1 to 2 weeks. ADDITIONAL INFORMATIO N This test was developed and its performa nce characteristics determined by [facility] in a manner co nsistent with CLIA requirements. This test has not been she ared or approved by the U.S. Food and Drug Administration. Test Performed by: [facility] [place] [address] [address] Unpaid Intern: Jonel Cox M.D. Ph. D.; CLIA# [id number] Specimen Anatomical Collection Method Collection Time Receive d Time (Source) Location / / Volume Laterality Blood 02/24/2021 10:58 02/25/2021 PM INSTRUMENT MAKER 12:03 AM INSTRUMENT MAKER Raza Powers MD LAB BLOOD ORDERABLES Performing Organization Address City/[facility] Phon e Number [facility] CANCER Unless otherwise noted, [address] all lab tests performed by: Division of Pathology and Laboratory Medicine [address] [place] [address] Hepatitis E IgG Ab (02/24/2021 10:58 PM INSTRUMENT MAKER) athologist [facility] HEV IgG Negative Negative LIZBETH WINSTON [facility] Comment: ADDITIONAL INFORMATIO N This test was developed and its performa nce characteristics determined by [facility] in a manner co nsistent with CLIA requirements. This test has not been she ared or approved by the U.S. Food and Drug Administration. Test Performed by: [facility] [address] [address] 11 Unpaid Intern: Jonel Cox M.D. Ph. D.; CLIA# [id number] Specimen Anatomical Collection Method Collection Time Receive d Time (Source) Location / / Volume Laterality Blood 02/24/2021 10:58 02/25/2021 PM INSTRUMENT MAKER 12:03 AM INSTRUMENT MAKER Raza Powers MD LAB BLOOD ORDERABLES Performing Organization Address City/State/ZIP Code Phon e Number [facility] CANCER Unless otherwise noted, [address] all lab tests performed by: Division of Pathology and Laboratory Medicine Roque Swanson (ABNORMAL) EBV Antibody Panel (02/24/2021 10:58 PM INSTRUMENT MAKER) athologist Signature VCA-M Int Negative Negative [facility] VCA-G Int Positive (A) Negative [facility] EBNA Int Positive (A) Negative [facility] Specimen Anatomical Collection Method Collection Time Receive d Time (Source) Location / / Volume Laterality Blood 02/24/2021 10:58 02/25/2021 PM INSTRUMENT MAKER 12:12 AM INSTRUMENT MAKER Raza Powers MD LAB BLOOD ORDERABLES Performing Organization Address City/State/ZIP Code Phon e Number [facility] CANCER Unless otherwise noted, [address] all lab tests performed by: Division of Pathology and Laboratory Medicine Tracey Gael Swanson Alpha 1 Antritrypsin (02/24/2021 10:58 PM INSTRUMENT MAKER) athologist [facility] 100 - 190 [facility] mg/dL [facility] CENTER Comment: Test Performed by: [facility] [address] [facility] [address] Unpaid Intern: Jonel Cox M.D. Ph. D.; CLIA# [id number] Specimen Anatomical Collection Method Collection Time Receive d Time (Source) Location / / Volume Laterality Blood 02/24/2021 10:58 02/24/2021 PM INSTRUMENT MAKER 11:54 PM INSTRUMENT MAKER Raza Powers MD LAB BLOOD ORDERABLES Performing Organization Address City/[facility] Phon e Number [facility] CANCER Unless otherwise noted, [address] all lab tests performed by: Division of Pathology and Laboratory Medicine Roque Swanson Hep A IgM Ab (02/24/2021 10:58 PM INSTRUMENT MAKER) athologist [facility] Hep A IgM-[place] Negative Negative [facility] Comment: Result does not exclude the possibility of exposure to hepatitis A virus. Antibody level duri ng early infection stage may be below the limit of detectio n of the assay. Test Performed by: [facility] [place] [address] Unpaid Intern: Jonel Cox M.D. Ph. D.; CLIA# [id number] Specimen Anatomical Collection Method Collection Time Receive d Time (Source) Location / / Volume Laterality Blood 02/24/2021 10:58 02/25/2021 PM INSTRUMENT MAKER 12:03 AM INSTRUMENT MAKER Raza Powers MD LAB BLOOD ORDERABLES Performing Organization Address [facility] Phon e Number [facility] CANCER Unless otherwise noted, [address] all lab tests performed by: Division of Pathology and Laboratory Medicine Roque Swanson Mitochondrial Ab M2 (02/24/2021 10:58 PM INSTRUMENT MAKER) athologist [facility] AMA Ab <0.1 <0.1 [facility] Screen-[place] (Negative) CANCER CENTER Units Comment: Test Performed by: [facility] [place] [address] Unpaid Intern: Jonel Cox M.D. Ph. D.; CLIA# [id number] Specimen Anatomical Collection Method Collection Time Receive d Time (Source) Location / / Volume Laterality Blood 02/24/2021 10:58 02/24/2021 PM INSTRUMENT MAKER 11:54 PM INSTRUMENT MAKER Raza Powers MD LAB BLOOD ORDERABLES Performing Organization Address City/[facility] Phon e Number [facility] CANCER Unless otherwise noted, [address] all lab tests performed by: Division of Pathology and Laboratory Medicine Roque Swanson Ceruloplasmin Level (02/24/2021 10:58 PM INSTRUMENT MAKER) [facility] Ceruloplasmin-M 31.8 20.0 - [facility] jaya 51.0 mg/dL CANCER CENTER Comment: Test Performed by: [facility] [address] [place] [address] Unpaid Intern: Jonel Cox M.D. Ph. D.; CLIA# [id number] Specimen Anatomical Collection Method Collection Time Receive d Time (Source) Location / / Volume Laterality Blood 02/24/2021 10:58 02/24/2021 PM INSTRUMENT MAKER 11:54 PM INSTRUMENT MAKER Raza Powers MD LAB BLOOD ORDERABLES Performing Organization Address City/[facility] Phon e Number [facility] CANCER Unless otherwise noted, [address] all lab tests performed by: Division of Pathology and Laboratory Medicine [address] [place] [address] [place] Hepatitis B IgM Core Ab (CONFIRM ACUTE INFECTION ONLY) (anti-HBc IgM; HBcAb IgM) (02/24/2021 10:58 PM INSTRUMENT MAKER) athologist [facility] Hep B Core Negative Negative [facility] Comment: Test Performed by: [facility] [address] [place], [place] [address] Unpaid Intern: Jonel Cox M.D. Ph. D.; CLIA# [id number] Specimen Anatomical Collection Method Collection Time Receive d Time (Source) Location / / Volume Laterality Blood 02/24/2021 10:58 02/25/2021 PM INSTRUMENT MAKER 12:03 AM INSTRUMENT MAKER Raza Powers MD LAB BLOOD ORDERABLES Performing Organization Address City/State/[facility] Phon e Number [facility] CANCER Unless otherwise noted, [address] all lab tests performed by: Division of Pathology and Laboratory Medicine [address] [place], [place] [address] Hepatitis B Surface Antibody (02/24/2021 10:58 PM INSTRUMENT MAKER) athologist [facility] Hep Bs Ab-[place] Negative [facility] Comment: Patient is presumed to be not immune to infection with HBV. REFERENCE VALUE------ Unvaccinated: Negative Vaccinated: Positive Hep Bs Ab [facility] <5.0 mIU/mL [place] MD NAVARRO [facility] Comment: REFERENCE VALUE------ Unvaccinated: <5.0 Vaccinated: >=12.0 Test Performed by: [facility] [place] [address] [place], [place] [address] Unpaid Intern: Jonel Cox M.D. Ph. D.; CLIA# [id number] Specimen Anatomical Collection Method Collection Time Receive d Time (Source) Location / / Volume Laterality Blood 02/24/2021 10:58 02/25/2021 PM INSTRUMENT MAKER 12:03 AM INSTRUMENT MAKER Raza Powers MD LAB BLOOD ORDERABLES Performing Organization Address City/[facility]/ZIP Code Phon e Number [facility] CANCER Unless otherwise noted, [address] all lab tests performed by: Division of Pathology and Laboratory Medicine [address] Geal Swanson Hepatitis B Surface Ag (02/24/2021 10:58 PM INSTRUMENT MAKER) athologist [facility] HBsAg Received See Note [facility] Comment: HBsAg was sent to a reference l ab for testing. Expect results on Hepatitis B Surface Antigen w/ Confirm within [address] Specimen Anatomical Collection Method Collection Time Receive d Time (Source) Location / / Volume Laterality Blood 02/24/2021 10:58 02/25/2021 PM INSTRUMENT MAKER 12:03 AM INSTRUMENT MAKER Raza Powers MD LAB BLOOD ORDERABLES Performing Organization Address City/State/[facility] Phon e Number [facility] CANCER Unless otherwise noted, [address] all lab tests performed by: Division of Pathology and Laboratory Medicine [address] Gaeljocelyne Swanson (ABNORMAL) Transferrin with TIBC (02/24/2021 10:58 PM INSTRUMENT MAKER) athologist Signature Transferrin 153 (L) 200 - 360 [facility] mg/dL [facility] TIBC 214 (L) 250 - 450 [facility] mcg/[facility] Specimen Anatomical Collection Method Collection Time Receive d Time (Source) Location / / Volume Laterality Blood 02/24/2021 10:58 02/24/2021 PM INSTRUMENT MAKER 11:38 PM INSTRUMENT MAKER Raza Powers MD LAB BLOOD ORDERABLES Performing Organization Address City/State/ZIP Code Phon e Number [facility] CANCER Unless otherwise noted, [address] all lab tests performed by: Division of Pathology and Laboratory Medicine [facility]5 Gael Swanson TSH (02/24/2021 10:58 PM INSTRUMENT MAKER) P athologist Signature TSH 2.90 0.27 - 4.20 [facility] mcunit/mL [facility] Specimen Anatomical Collection Method Collection Time Receive d Time (Source) Location / / Volume Laterality Blood 02/24/2021 10:58 02/24/2021 PM INSTRUMENT MAKER 11:10 PM INSTRUMENT MAKER Raza Powers MD LAB BLOOD ORDERABLES Performing Organization Address City/[facility] Phon e Number [facility] CANCER Unless otherwise noted, [address] all lab tests performed by: Division of Pathology and Laboratory Medicine [facility]5 [place] (ABNORMAL) Iron Level (02/24/2021 10:58 PM INSTRUMENT MAKER) P athologist Signature Iron 30 (L) 37 - 145 [facility] mcg/dL [facility] Specimen Anatomical Collection Method Collection Time Receive d Time (Source) Location / / Volume Laterality Blood 02/24/2021 10:58 02/24/2021 PM INSTRUMENT MAKER 11:38 PM INSTRUMENT MAKER Raza Powers MD LAB BLOOD ORDERABLES Performing Organization Address City/[facility]/ZIP Code Phon e Number [facility] CANCER Unless otherwise noted, [address] all lab tests performed by: Division of Pathology and Laboratory Medicine [facility]5 [employer] [place] GGT (02/24/2021 10:58 PM INSTRUMENT MAKER) P athologist Signature GGT 32 5 - 36 U/L [facility] Specimen Anatomical Collection Method Collection Time Receive d Time (Source) Location / / Volume Laterality Blood 02/24/2021 10:58 02/24/2021 PM INSTRUMENT MAKER 11:10 PM INSTRUMENT MAKER Raza Powers MD LAB BLOOD ORDERABLES Performing Organization Address City/State/ZIP Code Phon e Number [place] MD PHI CANCER Unless otherwise noted, [address] all lab tests performed by: Division of Pathology and Laboratory Medicine [address] [place] IgA (02/24/2021 10:58 PM INSTRUMENT MAKER) athologist [facility] IgA 372 85 - 499 [facility] mg/dL [facility] [place] Specimen Anatomical Collection Method Collection Time Receive d Time (Source) Location / / Volume Laterality Blood 02/24/2021 10:58 02/25/2021 7:12 PM INSTRUMENT MAKER AM INSTRUMENT MAKER Raza Powers MD LAB BLOOD ORDERABLES Performing Organization Address City/State/ZIP Code Phon e Number [facility] CANCER Unless otherwise noted, [address] all lab tests performed by: Division of Pathology and Laboratory Medicine [address] [place] IgM (02/24/2021 10:58 PM INSTRUMENT MAKER) athologist [facility] IgM 62 35 - 242 [facility] mg/dL [facility] Specimen Anatomical Collection Method Collection Time Receive d Time (Source) Location / / Volume Laterality Blood 02/24/2021 10:58 02/25/2021 7:12 PM INSTRUMENT MAKER AM INSTRUMENT MAKER Raza Powers MD LAB BLOOD ORDERABLES Performing Organization Address City/State/ZIP Code Phon e Number [facility] CANCER Unless otherwise noted, [address] all lab tests performed by: Division of Pathology and Laboratory Medicine [address] [place] IgG (02/24/2021 10:58 PM INSTRUMENT MAKER) athologist [facility] IgG 1,143 610 - 1,616 [facility] mg/dL [facility] Specimen Anatomical Collection Method Collection Time Receive d Time (Source) Location / / Volume Laterality Blood 02/24/2021 10:58 02/25/2021 7:12 PM INSTRUMENT MAKER AM INSTRUMENT MAKER Raza Powers MD LAB BLOOD ORDERABLES Performing Organization Address City/State/ZIP Code Phon e Number [facility] CANCER Unless otherwise noted, [address] all lab tests performed by: Division of Pathology and Laboratory Medicine [address] G[address] [place] (ABNORMAL) Ferritin Level (02/24/2021 10:58 PM INSTRUMENT MAKER) athologist Signature Ferritin Lvl 715 (H) 13 - 150 [place] MD YIP ng/mL [facility] Specimen Anatomical Collection Method Collection Time Receive d Time (Source) Location / / Volume Laterality Blood 02/24/2021 10:58 02/24/2021 PM INSTRUMENT MAKER 11:10 PM INSTRUMENT MAKER Raza Powers MD LAB BLOOD ORDERABLES Performing Organization Address City/State/ZIP Code Phon e Number [facility] CANCER Unless otherwise noted, [place] [address] CENTER all lab tests performed by: Division of Pathology and Laboratory Medicine [address] Waldron X-ray Chest 1 View (02/24/2021 8:52 PM INSTRUMENT MAKER) Anatomical Region Laterality Modality Chest Digital Radiography Specimen (Source) Anatomical Collection Method Collection Time Re ceived Time Location / / Volume Laterality 02/24/2021 9:26 PM INSTRUMENT MAKER Impressions 02/24/2021 9:26 PM INSTRUMENT MAKER Normal examination. Narrative 02/24/2021 9:26 PM INSTRUMENT MAKER FULL RESULT: Examination: Portable Chest, 1 view, Feb [facility] 2021 at 8:46 PM Clinical History: Cervical cancer Indication: Fever Comparison: January 06, 2020 Technique: Single portable frontal radio graph of the chest Findings: The lungs are clear. The cardiac silhoue tte is within normal limits. Procedure Note Mercy Vivas MD - 02/24/2021Formatti ng of this note might be different from the original. FULL RESULT: Examination: Portable Chest, 1 view, Feb [facility] 2021 at 8:46 PM Clinical History: Cervical cancer Indication: Fever Comparison: January 06, 2020 Technique: Single portable frontal radio graph of the chest Findings: The lungs are clear. The cardiac silhoue tte is within normal limits. IMPRESSION: Normal examination. Raza Powers MD IMG DIAGNOSTIC IMAGING ORDER ELAYNE POC VBG+Lac (02/24/2021 8:52 PM INSTRUMENT MAKER)Only the most recent of3 resultswithin the time period is included. P athologist Signature POC VB pH 7.40 7.31 - 7.41 POC TELCOR POC VB pCO2 42 41 - 51 POC TELCOR mmHg POC VB pO2 31 mmHg POC TELCOR POC VB TCO2 27 24 - 29 POC TELCOR mEq/L POC VB Bicarb 26 23 - 28 POC TELCOR mmol/L POC VB Base Ex 1 -2 - 3 POC TELCOR mmol/L POC VB O2 Sat 59 % POC TELCOR POC VB LAC 1.0 0.9 - 1.7 POC TELCOR mmol/L Comment: Method description: The i-STAT is an dick lyzer used for in vitro quantification of various analytes in whole blood. The device uses a single disposable cartridge which contains microfabricated sensors, a calibration solution, fluidics system, and a waste chamber. Each test cartridge contains ch emically sensitive biosensors on a silicon chip that are configured to perform specific tests. The microfabricated sensors measure analyte concentration by an electrochemical assay. POC FiO2 0 POC TELCOR POC Sample Type Venous POC TELCOR POC Clean Dev Yes POC TELCOR Performing Lab [facility] POC TELCO R Comment: [facility] Clinical Lab, [address] [place] [id number]; Lab Direct or: Lacy Mendoza MD Specimen Anatomical Collection Method Collection Time Receive d Time (Source) Location / / Volume Laterality Blood 02/24/2021 8:52 PM 8:52 INSTRUMENT MAKER PM INSTRUMENT MAKER Raza Powers MD POCT ORDERABLES - DEVICE Performing Organization Address City/State/ZIP Code Phon e Number POC TELCOR (ABNORMAL) Procalcitonin (PCT) (02/24/2021 8:45 PM INSTRUMENT MAKER) P athologist Signature Procalcitonin 0.17 (H) <=0.08 [place] ng/mL [facility] [facility] Comment: Procalcitonin > 2.00 ng/mL: Procalcit onin levels above 2.00 ng/mL are highly suggestive of a high risk for systematic bacterial infection/ severe sepsis and/or septic shock. Procalcitonin < 0.50 ng/mL: Procalcito rodolfo levels below 0.50 ng/mL are at low risk for progression to severe sepsis and/ or septic shock. Procalcitonin (ProCT) between 0.15 and 2 .0 ng/mL do not exclude infection, because localized infections (without systemic signs) may be associated with such low levels. Results greater than 400 ng/mL may not b e reliable due to the matrix effect with extended dilution as it exceeds the forge press operator's recommended limit. Caution should be exercised when interpreting such values and done in conjunction with clinical context. Specimen Anatomical Collection Method Collection Time Receive d Time (Source) Location / / Volume Laterality Blood 02/24/2021 8:45 PM 2 8:54 INSTRUMENT MAKER PM INSTRUMENT MAKER Raza Powers MD LAB BLOOD ORDERABLES Performing Organization Address [facility] Phon e Number [facility] CANCER Unless otherwise noted, [address] all lab tests performed by: Division of Pathology and Laboratory Medicine [facility]5 Gaeljocelyne Swanson Blood culture (02/24/2021 8:45 PM INSTRUMENT MAKER) Component Value Ref Test Analysis Performed At Patholo gist Range Method Time Signature Final Report No growth [facility] Path Review - Culture yield may be affecte d by sample quality, prior treatment, and transportation conditions. [place] Bottle/Isolat ... PHI or The results have been reviewed and electronically signed b y Pathologist: CANCER Mike Raymond MD, PhD #[id number] C ENTER Specimen Anatomical Collection Method Collection Time Receive d Time (Source) Location / / Volume Laterality Blood 02/24/2021 8:45 PM 2 9:34 (Venipuncture) INSTRUMENT MAKER PM INSTRUMENT MAKER Comment: sd Narrative [facility] - 2 8:52 PM INSTRUMENT MAKER Short draw may invalidate quantitative b lood culture results. Raza Powers MD MICROBIOLOGY - GENERAL ORDER ELAYNE Performing Organization Address [facility] Phon e Number [facility] CANCER Unless otherwise noted, [address] all lab tests performed by: Division of Pathology and Laboratory Medicine [facility]5 [place] CRP (C-reactive protein) (02/24/2021 8:45 PM INSTRUMENT MAKER) P athologist Signature CRP 72.18 mg/L [facility] Comment: Reference ranges for HS CRP assay are as follows: Reference ranges when used to assess car diac risk: <1.00 mg/L Low cardiovascular risk 1.00-3.00 mg/L Average cardiovascular risk >3.00 mg/L High cardiovascular risk. Reference ranges when used to assess inf lammatory responses: Less than or equal to 10.00 mg/L. Specimen Anatomical Collection Method Collection Time Receive d Time (Source) Location / / Volume Laterality Blood 02/24/2021 8:45 PM 2 8:54 INSTRUMENT MAKER PM INSTRUMENT MAKER Raza Powers MD LAB BLOOD ORDERABLES Performing Organization Address City/[facility]/ZIP Code Phon e Number [facility] CANCER Unless otherwise noted, [address] all lab tests performed by: Division of Pathology and Laboratory Medicine [address] [place] [address] (ABNORMAL) LDH (02/24/2021 8:45 PM INSTRUMENT MAKER)Only the most recent of3 resultswithin the time period is included. athologist Signature LDH 474 (H) 135 - 214 [place] [facility] [facility] Comment: Specimen is hemolyzed. Results may be fa lsely elevated. Repeat test if needed. Results greater than 1651 U/L may not be reliable due to matrix effect with extended dilution as it exceeds the forge press operator s recommended limit. Caution should be exercised when interpreting such reji ues and done in conjunction with clinica l context. Specimen Anatomical Collection Method Collection Time Receive d Time (Source) Location / / Volume Laterality Blood 02/24/2021 8:45 PM 2 8:54 INSTRUMENT MAKER PM INSTRUMENT MAKER Raza Powers MD LAB BLOOD ORDERABLES Performing Organization Address City/[facility]/ZIP Code Phon e Number [place] [facility] [facility] Unless otherwise noted, [address] all lab tests performed by: Division of Pathology and Laboratory Medicine [address] [place] [address] Respiratory Viral Panel + COVID-19, Nasopharyngeal Swab (02/24/2021 8:28 PM INSTRUMENT MAKER) [facility] gist Method Time Signature Adenovirus Not Not LIZBETH WINSTON Detected Detected [facility] Coronavirus 229E Not Not LIZBETH WINSTON Detected Detected [facility] Coronavirus HKU1 Not Not [place] Detected Detected [facility] Coronavirus NL63 Not Not [place] Detected Detected [facility] Coronavirus OC43 Not Not [place] Detected Detected [facility] COVID19 Not Not LIZBETH WINSTON (SARS-CoV-2) Detected Detected [facility] Human Not Not LIZBETH WINSTON Metapneumovirus Detected Detected [facility] Human Not Not [place] Rhinovirus/Enterov Detected Detected [facility] Influenza A Not Not LIZBETH WINSTON Detected Detected [facility] Influenza A H1 Not Not LIZBETH WINSTON Detected Detected [facility] Influenza A H1 Not Not LIZBETH WINSTON 2008 Detected Detected [facility] Influenza A H3 Not Not [place] MD Detected Detected [facility] Influenza B Not Not [place] MD Detected Detected [facility] Parainfluenza 1 Not Not [place] MD Detected Detected [facility] Parainfluenza 2 Not Not [place] MD Detected Detected [facility] Parainfluenza 3 Not Not UT MD Detected Detected [facility] Parainfluenza 4 Not Not [place] MD Detected Detected [facility] Respiratory Not Not [facility] MD Syncytial Virus Detected Detected [facility] Bordetella Not Not [facility] MD Parapertussis Detected Detected [facility] Bordetella Not Not [facility] MD pertussis Detected Detected [facility] Chlamydiophila Not Not [place] MD pneumoniae Detected Detected [facility] Mycoplasma Not Not [place] MD pneumoniae Detected Detected [facility] Specimen (Source) Anatomical Collection Method Collection Time Re ceived Time Location / / Volume Laterality Nasopharyngeal Swab 02/24/2021 8:28 02/24 PM INSTRUMENT MAKER 8:53 PM INSTRUMENT MAKER Raza Powers MD MICROBIOLOGY - GENERAL ORDER ELAYNE Performing Organization Address City/State/ZIP Code Phon e Number [facility] Unless otherwise noted, [place] [address] [place] all lab tests performed by: Division of Pathology and Laboratory Medicine [address] [place] [address] CT Abdomen Pelvis with IV Contrast (02/13/2021 7:14 AM INSTRUMENT MAKER)Only the most recent of3 resultswithin the time period is included. Anatomical Region Laterality Modality Abdomen, Pelvis Computed Tomography Specimen (Source) Anatomical Collection Method Collection Time Re ceived Time Location / / Volume Laterality 02/13/2021 7:18 AM INSTRUMENT MAKER Impressions 02/13/2021 7:48 AM INSTRUMENT MAKER Similar moderate left-sided hydrouretero nephrosis secondary to distal left ureteric stenosis compared to CT 11/24/2020. Stable low density wedge-shaped defects in the left renal parenchyma which may reflect chronic pyelonephritis. Mildly increasing dilatation of the righ t renal collecting system, possibly indicating underlying distal ureteric stenosis. Narrative 02/13/2021 7:48 AM INSTRUMENT MAKER FULL RESULT: Examination: CT ABDOMEN PELVIS W CONTRAS T, 02/13/2021 7:14 AM Clinical History: 36-year-old female wit h cervical cancer status post pelvic exenteration, bilateral salpingo-oophorectomy in 2018 Indication: flank pain Comparison: CT abdomen and pelvis [facility] 2020 Technique: CT of the abdomen and pelvis was performed with intravenous contrast. Findings: Bibasilar dependent atelectasis. The spleen, pancreas, right adrenal glan d, liver are normal. Cholecystectomy. Stable 1.6 x 1.2 cm adenoma arising from the lateral limb of the left adrenal gland on series 6 image 60. There is similar moderate left hydrouret eronephrosis secondary to distal left ureteric stenosis and mildly increasing dilatation of the right renal collecting system. Persistent striated left nephrogram (wedge-shaped low-attenuation defects i n the left renal parenchyma) may reflect chronic pyelonephritis. Decreased left perinephric fluid/fat stranding. Stable small-volume retroperitoneal lymp h nodes may be reactive. No pelvic adenopathy. Postsurgical changes of pelvic exenterat ion with flap to the defect, ileal conduit urinary diversion. Right parastomal hernia containing unobstructed large and small bowel bowel. Left lower quadrant colostomy with crispin tomal hernia containing unobstructed small bowel. No new suspicious osseous destructive le sions. Procedure Note Shameka Boss MD - 02/13/2021Formatt ing of this note might be different from the original. FULL RESULT: Examination: CT ABDOMEN PELVIS W JOYCE Diaz, 02/13/2021 7:14 AM Clinical History: 36-year-old female wit h cervical cancer status post pelvic exenteration, bilateral salpingo-oophorectomy in 2018 Indication: flank pain Comparison: CT abdomen and pelvis [facility] [address]2020 Technique: CT of the abdomen and pelvis was performed with intravenous contrast. Findings: Bibasilar dependent atelectasis. The spleen, pancreas, right adrenal glan d, liver are normal. Cholecystectomy. Stable 1.6 x 1.2 cm adenoma arising from the lateral limb of the left adrenal gland on series 6 image 60. There is similar moderate left hydrouret eronephrosis secondary to distal left ureteric stenosis and mildly increasing dilatation of the right renal collecting system. Persistent striated left nephrogram (wedge-shaped low-attenuation defects in the left roberto l parenchyma) may reflect chronic pyelonephritis. Decreased left perinephric fluid/fat stranding. Stable small-volume retroperitoneal lymp h nodes may be reactive. No pelvic adenopathy. Postsurgical changes of pelvic exenterat ion with flap to the defect, ileal conduit urinary diversion. Right parastomal hernia containing unobstructed large and small bowel bowel. Left lower quadrant colostomy with crispin tomal hernia containing unobstructed small bowel. No new suspicious osseous destructive le sions. IMPRESSION: Similar moderate left-sided hydrouretero nephrosis secondary to distal left ureteric stenosis compared to CT 11/24/2020. Stable low density wedge-shaped defects in the left renal parenchyma which may reflect chronic pyelonephritis. Mildly increasing dilatation of the righ t renal collecting system, possibly indicating underlying distal ureteric stenosis. Mckay Puentes MD IMG CT ORDERABLES POC UHCG (02/13/2021 6:52 AM INSTRUMENT MAKER) athologist Signature POC U hCG Negative Negative POC [facility] Comment: Very dilute urine specimens may cause fa lse negative results. Suggest repeat in 48 hours with a first morning voided urine or request quantitative serum beta HCG test. Method description: The ICON 20 hCG Seru m/Urine test employs a solid phase chromatographic immunoassay technology to selectively detect elevated levels of hCG in urine with a high degree of sensitivity. POC U hCG Cont Valid POC [facility] Performing Lab [facility] POC TELCO R Comment: [facility], [address] [place] [id number]; Lab Direct or: Lacy Mendoza MD Specimen Anatomical Collection Method Collection Time Receive d Time (Source) Location / / Volume Laterality Urine 02/13/2021 6:52 AM 6:52 INSTRUMENT MAKER AM INSTRUMENT MAKER Chris Love MD POCT ORDERABLES - DEVICE Performing Organization Address City/State/ZIP Code Phon e Number POC [facility] (ABNORMAL) POC Chem 8 without Hemoglobin and Hematocrit (11/24/2020 5:16 AM CDT) athologist Signature POC NA 142 138 - 146 POC [facility] mEq/L POC K 3.1 (L) 3.5 - 4.9 POC [facility] mEq/L Comment: Method description: The i-STAT is an dick lyzer used for in vitro quantification of various analytes in whole blood. The device uses a single disposable cartridge which contains microfabricated sensors, a calibration solution, fluidics system, and a waste chamber. Each test cartridge contains ch emically sensitive biosensors on a silicon chip that are configured to perform specific tests. The microfabricated sensors measure analyte concentration by an electrochemical assay. POC CL 106 98 - 109 mEq/L POC [facility] POC VTCO2 24 24 - 29 mEq/L POC [facility] POC Anion Gap 16 10 - 20 mmol/L POC [facility] POC BUN 12 8 - 26 mg/dL POC [facility] POC Crea 0.6 0.6 - 1.3 mg/dL POC [facility] Comment: Medications, especially hydroxyurea or s upplements, such as ascorbate, can interfere with test results causing a falsely and significantly higher result than expected. If a problem is suspected with a patient's result, a sample should be sent to the laboratory for confirmatory testing. Method description: The i-STAT is an dick lyzer used for in vitro quantification of various analytes in whole blood. The device uses a single disposable cartridge which contains microfabricated sensors, a calibration solution, fluidics system, and a waste chamber. Each test cartridge contains ch emically sensitive biosensors on a silicon chip that are configured to perform specific tests. The microfabricated sensors measure analyte concentration by an electrochemical assay. POC eGFR-AA 135 >=60 mL/min/1.73 m2 POC TELC OR Comment: Normal eGFR >= 60 mL/min/1.73 m2 The eGFR is calculated using the CKD-EPI equation. The eGFR declines with age. eGFR <60 mL/min/1.73 m2 is considered as "decreased" This equation should only be used for patients 18 and older. According to the National [employer] ion's Kidney Disease Outcome Quality Initiative (KDOQI) classification and 2012 Kidney Disease Improving Global Outcomes (KDIGO) Clinical Practice Guideline, the stage of CKD should be categorized based on estimated GFR. Stage Description GFR mL/min/1.73 m2 1 Kidney damage with normal or high GFR >=90 2 Kidney damage with mild decrease in GF R 60-89 3a Mild to moderate decrease in GFR 45-59 3b Moderate to severe decrease in GFR 30-44 4 Severe decrease in GFR 15-29 5 Kidney failure <15 (or dialysis) POC eGFR-LIN 116 >=60 mL/min/1.73 m2 POC TEL [facility] Comment: Normal eGFR >= 60 mL/min/1.73 m2 The eGFR is calculated using the CKD-EPI equation. The eGFR declines with age. eGFR <60 mL/min/1.73 m2 is considered as "decreased" This equation should only be used for patients 18 and older. According to the National [employer] ion's Kidney Disease Outcome Quality Initiative (KDOQI) classification and 2012 Kidney Disease Improving Global Outcomes (KDIGO) Clinical Practice Guideline, the stage of CKD should be categorized based on estimated GFR. Stage Description GFR mL/min/1.73 m2 1 Kidney damage with normal or high GFR >=90 2 Kidney damage with mild decrease in GF R 60-89 3a Mild to moderate decrease in GFR 45-59 3b Moderate to severe decrease in GFR 30-44 4 Severe decrease in GFR 15-29 5 Kidney failure <15 (or dialysis) POC Glucose 133 (H) 70 - 99 mg/dL POC [facility] POC Ion Ca 1.20 1.12 - 1.32 mmol/L POC [facility] POC Sample Type Venous POC [facility] POC Clean Dev Yes POC [facility] Performing Lab [facility] POC TELCO R Comment: [facility], [address] [place] [id number]; Lab Direct or: Lacy Mendoza MD Specimen Anatomical Collection Method Collection Time Receive d Time (Source) Location / / Volume Laterality Blood 11/24/2020 5:16 AM 5:16 CDT AM CDT Unknown Provider POINT OF CARE TEST ORDERABLE S Performing Organization Address City/State/ZIP Code Phon e Number POC [facility] XR Abdomen 1 View Portable (11/03/2020 6:12 AM CDT) Anatomical Region Laterality Modality Abdomen Digital Radiography Specimen (Source) Anatomical Collection Method Collection Time Re ceived Time Location / / Volume Laterality 11/03/2020 12:04 PM CDT Impressions 11/03/2020 12:07 PM CDT The nasogastric tube terminates overlyin g the gastric body. Narrative 11/03/2020 12:07 PM CDT FULL RESULT: Examination: XR ABDOMEN 1 VW PORTABLE on 11/03/2020 6:12 AM Clinical History: Malignant neoplasm of overlapping sites of cervix uteri Indication: Tube Placement (nasogastric/ gastric) Comparison: Same day CT Technique: XR ABDOMEN 1 VW PORTABLE Findings: The nasogastric tube terminates overlyin g the gastric body. Clips in the right upper quadrant in keeping with cholecystectomy. Excreted contrast is seen in the renal collecting systems. Paucity of bowel gas. There is partially visualized loop of colon lateral to the right abdominal wall in keeping with a hernia. Procedure Note Camille Silverman MD - 11/03/2020 FULL RESULT: Examination: XR ABDOMEN 1 VW PORTABLE on 11/03/2020 6:12 AM Clinical History: Malignant neoplasm of overlapping sites of cervix uteri Indication: Tube Placement (nasogastric/ gastric) Comparison: Same day CT Technique: XR ABDOMEN 1 VW PORTABLE Findings: The nasogastric tube terminates overlyin g the gastric body. Clips in the right upper quadrant in keeping with cholecystectomy. Excreted contrast is seen in the renal collecting systems. Paucity of bowel gas. There is partially visualized loop of colon later al to the right abdominal wall in keeping with a hernia. IMPRESSION: The nasogastric tube terminates overlyin g the gastric body. Jessenia Kim MD IMG DIAGNOSTIC IMAGING ORDER ELAYNE Influenza A/B + COVID-19 Asymptomatic- L (11/03/2020 12:57 AM CDT) [facility] Method Time Signature COVID19 Not Detected Not Detected LIZBETH WINSTON (SARS-CoV-2) [facility] Influenza A Not Detected Not Detected [facility] Influenza B Not Detected Not Detected [facility] COVID19 SARS Inpatient [place] Indication Admission [facility] Inf AB+Cov19 See Note [facility] Comment [facility] Comment: The cindy SARS-CoV-2 & Influenza A/B nuc leic acid test for use on the cindy Karo System is a multiplex real-time RT-PCR assay intended for the simultaneous, qualitative detection and differential of SARS-CoV-2 (COVID-19), influenza A, and influenza B viral RNA in nasopharyngeal swabs in tra nsport media from patients suspected of having a respiratory infection with one of these viruses or possibly exposure to COVID-19 by a healthcare provider. Results must be interpreted within the context of all relevant clinical and laboratory finding s and should not form the sole basis for a diagnosis or treatment decision. A fact sheet for patients provided by the forge [employer] ([employer]) can be reviewed at: https://www.fda.gov/media/559241/downloa d A fact sheet for Health Care providers i s provided by the forge [employer] operator ([employer]) and can be reviewed at: https://www.fda.gov/media/102159/download Influenza A and Influenza B negative res ults should be considered presumptive in samples that have a positive SARS-CoV-2 result. If co-infection with influenza A or influenza B virus is suspected in bassem ples with a positive SARS-CoV-2 results, the sample should be re-tested with another approve d influenza test. This assay has been authorized by the [facility] for use only under Emergency Use Authorization (EUA) in laboratories that have been CLIA-certified to perform moderate-complexity and high-complexity tests. The Microbiology Laboratory at [facility], CLIA Accreditation #[id number] a hi CAP Accreditation #[id number], verified the performance characteristics of this assay. Internal controls are used to monitor all stages of the test process. Specimen (Source) Anatomical Collection Method Collection Time Re ceived Time Location / / Volume Laterality Nasopharyngeal Swab 11/03/2020 12:57 10/24 AM CDT 1:11 AM CDT Idania Ford MD MICROBIOLOGY - GENERAL ORDER ELAYNE Performing Organization Address City/State/ZIP Code Phon e Number [facility] Unless otherwise noted, [address] all lab tests performed by: Division of Pathology and Laboratory Medicine [address] [place] Lipase (11/03/2020 12:57 AM CDT) P athologist Signature Lipase Lvl 21 13 - 60 U/L [facility] Specimen Anatomical Collection Method Collection Time Receive d Time (Source) Location / / Volume Laterality Blood 11/03/2020 12:57 11/03/2020 1:16 AM CDT AM CDT Idania Ford MD LAB BLOOD ORDERABLES Performing Organization Address City/State/[facility] Phon e Number [facility] Unless otherwise noted, [address] all lab tests performed by: Division of Pathology and Laboratory Medicine [address] Amylase (11/03/2020 12:57 AM CDT) P athologist Signature Amylase Lvl 58 28 - 100 [facility] U/L [facility] Specimen Anatomical Collection Method Collection Time Receive d Time (Source) Location / / Volume Laterality Blood 11/03/2020 12:57 11/03/2020 1:16 AM CDT AM CDT Idania Ford MD LAB BLOOD ORDERABLES Performing Organization Address City/State/ZIP Code Phon e Number [facility] Unless otherwise noted, [place] [address] [place] all lab tests performed by: Division of Pathology and Laboratory Medicine [address] after 10/30/2020 Insurance Payer Benefit Plan Subscriber ID Effective Dates Phone Address Type / Group [employer]BS PPO POS [id number] 2018-Presen [phone] BLUE SHIELD OUT OF STATE t 7 [id number] [place] [address] [phone] (Work) Kaila Suraez Personal/Family Self 1985 [address] [facility] (Home) [place] [address] Kaila Suarez Personal/Family Self 1985 [address] [facility] ([place] [address] Advance Directives Code Status Date Activated Date Inactivated Comments Full Code 03/01/2021 8:31 AM 03/01/2021 11:17 PM Full Code 02/25/2021 1:17 AM 02/26/2021 1:24 PM Full Code 11/03/2020 4:43 AM 11/05/2020 3:31 PM Full Code 09/08/2020 2:19 AM 09/09/2020 5:29 PM Full Code 05/10/2020 6:29 AM 05/11/2020 2:41 PM Care 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
--- OUTSIDE RECORDS SUMMARY | 2021-10-30 20:12 | XMS REPORT | Continuity of Care Document ---
:1985 Author Organization [facility] t Address [address] [place]. [address] [place] [id number] Care Team Providers Name Role Phone [phone] Primary Care Physician Unavailable SYSTEM, PROVIDER NOT IN Attending Clinician Unavailable Ping Tang APN Attending Clinician Gustabo AIRPLANE DISPATCH CLERKMarsha Attending Clinician Nurse, [facility] Attending Clinician Unavailable MARSHA MONTEJO Attending Clinician Unavailable Omaghomi AIRPLANE DISPATCH CLERK, Omayemi Attending Clinician Sean Vaca MD Attending Clinician Regis CASTAÑEDA, Trista Blas Attending Clinician SEAN VACA Attending Clinician Unavailable Doctor Unassigned, [place] Attending Clinician Unavailable Hollie Rodríguez MD Attending Clinician Unavailable Johan Barnhart MD Attending Clinician Gold Rosas MD Attending Clinician GOLD ROSAS Attending Clinician Unavailable JOHAN BARNHART Attending Clinician Unavailable Charles Warren MD Attending Clinician Raza Powers MD Attending Clinician Gopal Cruz MD Attending Clinician GILBERT LOVE Attending Clinician Unavailable Deloris WINSTON, Mckay Attending Clinician Gilbert Love MD Attending Clinician Nadege Galo Attending Clinician Dariel Blanchard, Ana Attending Clinician GORDON LOPEZ, JONEL Ho Attending Clinician Unavailable Gordon WINSTON, Jonel Ho Attending Clinician Shanice MIGUEL, Lisa Carpenter Attending Clinician CARLO GERMAN Attending Clinician Unavailable Idania Ford MD Attending Clinician Jessenia Mayer MD Attending Clinician Carlo German MD Attending Clinician YANI HORNE Attending Clinician Unavailable KVNG VEGAS Attending Clinician Unavailable DIONNE BURDICK Attending Clinician Unavailable GOLD ROSAS Admitting Clinician Unavailable SEAN VACA Admitting Clinician Unavailable JESSENIA MAYER Admitting Clinician Unavailable Payers Payer Name Policy Type Policy Number Effective Date Expiration Date S ource Problems Condition Condition Condition Status Onset Resolution Last Treating Co mments Source Name Details Category Date Date Treatment Clinician Date Rash Rash Disease Active Univers 1-07 ity of 00:00: 00 MD Medardo sosa [facility] Liver Liver Disease Active Univers function function 1-03 ity of tests tests 00:00: [place] abnormal abnormal 00 MD Medardo sosa [facility] Headache Headache Disease Active Unive rs 1-03 ity of 00:00: [place] 00 MD Medardo sosa [facility] Chills Chills Disease Active Univers without without 1-03 ity of fever fever 00:00: 00 MD Medardo sosa [facility] Parastomal Parastomal Disease Active U nivers hernia hernia 9-11 ity of 00:00: 00 MD Medardo sosa [facility] Hydronephr Hydronephr Disease Active 2019-02 Overview : Univers osis with osis with 2-04 Formattin i ty of ureteral ureteral 00:00: g of this [place]ai[place] as stricture stricture 00 note [facility] the Cancer original. 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 1-04 ity of with [place] anxiety anxiety 00 depressed depressed n mood mood [facility] Colostomy Colostomy Disease Active 2017-02 Uni vers present present 2-28 ity of 00:00: [place] 00 MD Medardo sosa [facility] Urostomy Urostomy Disease Active 2017-02 Unive rs present present 2-28 ity of 00:00: [place] 00 MD Medardo sosa [facility] Ventral Ventral Disease Active 2017-02 Univers hernia hernia 2-27 ity of 00:00: [place] 00 MD Medardo sosa [facility] Menopausal Menopausal Disease Active 2017-02 U nivers symptom symptom 0-08 ity of 00:00: [place] 00 MD Medardo sosa [facility] Hypokalemi Hypokalemi Disease Active U nivers a a 3-12 ity of 00:00: [place] 00 MD Medardo sosa [facility] Back pain Back pain Disease Active Uni vers 2-21 ity of 00:00: [place] 00 MD Medardo sosa [facility] Malignant Malignant Disease Active Last Uni vers neoplasm neoplasm 2-05 Assessmen ity of of of 00:00: t & Plan: [place] overlappin overlappin 00 Formattin g sites of g sites of g of this Anderso cervix cervix note n uteri uteri might be Cancer different Center from the original. Exam is normal today. We will obtain a PETCT.We will reach out to Dr. Leyva to discuss managemen t of urostomy and recurrent UTIs.Conchita ent will return in 6 months for follow-up . Ms Aguayo will contact us if she develops any new or concernin g symptoms, including but not limited to abdominal /pelvic pain, change in bowel habits, change in urinary habits, or vaginal spotting/ bleeding. Morbid Morbid Disease Active Univers obesity obesity 2-05 ity of 00:00: [place] 00 MD Medardo sosa [facility] No known No known Disease Unive rs active active ity of problems problems [facility] [place] Sexually Sexually Disease Active Overview: Un poncho transmitte transmitte Formattin ity of d disease d disease g of this [place] note might be Andbriano skyler n from the Cancer original. Center Hpv 18 Slow Slow Disease Active Univers transit transit ity of constipati constipati [place] on MD Medardo sosa [facility] Leukopenia Leukopenia Disease Resolve 2021-03-01 2021-03-01 Univers d 02-25 00:00:00 06:11:01 ity of 00:00: [place] 00 MD Medardo sosa [facility] Neutropeni Neutropeni Disease Resolve 2021-03-01 2021-03-01 Univers a a d 02-25 00:00:00 06:11:07 ity of 00:00: [place] 00 MD Medardo sosa [facility] Small Small Disease Resolve 2017-022021-02-25 2021-02-25 Univers bowel bowel d 04-19 00:00:00 01:38:26 ity of obstructio obstructio [place] n n 00 MD Medardo sosa [facility] Allergies, Adverse Reactions, Alerts Allergy Allergy Status Severity Reaction(s) Onset Inactive Treating Comm ents Source Name Type Date Date Clinician K-Flex Propensi Active Rash 2021-0 Univers ty to 3-24 ity of adverse 00:00: [place] reaction 00 Medical s Branch CODEINE DRUG Active Rash 2021-0 Univers INGREDI 3-24 ity of 00:00: [place] 00 Medical Branch K-FLEX DRUG Active Rash 2021- Univers 3-24 ity of 00:00: [place] 00 Medical Branch Codeine Propensi Active Rash 2021-0 Univers ty to 3-24 ity of adverse 00:00: [place] reaction 00 Medical s Branch Cephalex Propensi Active Other (See Neutropen Univers in ty to Comments) 02-27 iaRash ity of adverse 00:00: (concerns [place] reaction 00 for DRESS s Feb 2021) Medardo sosa [facility] CEPHALEX DRUG Active High Other IN INGREDI 02-27 Medardo 00:00: n 00 Hydrocod Propensi Active Hives 2017-02 Univer s one ty to 2-31 ity of adverse 00:00: [place] reaction 00 MD laura [facility] HYDROCOD DRUG Active Hives 2017-02 MD ONE INGREDI 2- [place] 00:00: n 00 Codeine Propensi Active Hives 2017-02 Univers ty to 0-08 ity of adverse 00:00: [place] reaction 00 MD laura [facility]osa [facility] CODEINE DRUG Active Low Hives 2017-02 MD INGREDI 0-08 [place] 00:00: n 00 NO KNOWN Drug Active Univers ALLERGIE Class ity of S [facility] [place] Family History Family Member Diagnosis Comments Start Date Stop Date Source Natural father Hypertension [facility] Maternal grandfather Colon cancer Un iversity of [facility] Maternal uncle Lung cancer Universit y of [facility] Natural mother Hypertension Universi ty of [facility] Paternal grandmother Cervical cancer [facility] Social History Social Habit Start Date Stop Date Quantity Comments Source History SDOH University o f Alcohol Frequency [facility] History SDOH University o f Alcohol Std [facility] rsjessica [facility] History [facility] o f Alcohol Binge [place] MD [facility] Exposure to 2021-07-18 2021-07-28 Not sure University [facility]-CoV-2 00:00:00 19:24:00 [facility] (event) [place] Alcohol intake 2021-02-25 2021-02-25 Current non-drinker U niversity of 00:00:00 00:00:00 of alcohol Pietro Mei son (finding) [facility] Tobacco use and 2017-03-30 2017-03-30 Smokeless tobacco Un iversity of exposure 00:00:00 00:00:00 non-user [facility] History SDOH 2017-03-30 2017-03-30 Occasionally mixed Univ ersity of Alcohol Comment 00:00:00 00:00:00 drinks [place] [facility] Sex [birth year] Universit y of 00:00:00 00:00:[address] [facility] [place] Smoking Status Start Date Stop Date Source Unknown if ever smoked Universit y of [facility] [place] Never smoked tobacco [facility] Medications Ordered Filled Start Stop Current Ordering Indication Dosage Frequency Signature Comments Components Source Medication Medication Date Date Medication? Clinician (SIG) Name Name estradioL 2022- Yes Malignant 1mg Take 2 Univers (Estrace) 10-17 08-26 neoplasm of tablets (1 ity of 0.5 mg 00:00: 04:59 overlapping mg) by [place] tablet 00 :00 sites of mouth MD cervix daily. [facility] sulfamethox 2021- Yes [id number] 1{tbl} Take 1 Univers azole-trime 08-01 tablet by it y of thoprim 00:00: 04:59 mouth 2 [place] (BACTRIM 00 :00 (two) Medical DS) 800-160 times Branch mg per daily for tablet 7 days. sulfamethox 2021- Yes [id number] 1{tbl} Take 1 Univers azole-trime 08-01 tablet by it y of thoprim 00:00: 04:59 mouth 2 [place] (BACTRIM 00 :00 (two) Medical DS) 800-160 times Branch mg per daily for tablet 7 days. Nitrofurant 2021- No [id number] 100mg Take 1 Univers oin&Nit. 07-28-13 capsule by ity of Macrocryst 00:00: 04:59 mouth 2 [place]ai[place] as 100 mg 00 :00 (two) Medical capsule times Branch daily for 7 days. Nitrofurant 2021- No [id number] 100mg Take 1 Univers oin&Nit. 07-28-13 capsule by ity of Macrocryst 00:00: 04:59 mouth 2 [place] as 100 mg 00 :00 (two) Medical capsule times Branch daily for 7 days. Nitrofurant 2021- No [id number] 100mg Take 1 Univers oin&Nit. 07-28-13 capsule by ity of Macrocryst 00:00: 04:59 mouth 2 [place] as 100 mg 00 :00 (two) Medical capsule times Branch daily for 7 days. Nitrofurant 2021- No [id number] 100mg Take 1 Univers oin&Nit. 6-13 capsule by ity of Macrocryst 00:00: 04:59 mouth 2 [place]ai[place] as 100 mg 00 :00 (two) Medical capsule times Branch daily for 7 days. estradioL 2021- No Malignant 1mg Take 2 Univers (Estrace) 07-01 08-25 neoplasm of tablets (1 ity of 0.5 mg 00:00: 00:00 overlapping mg) by [place] tablet 00 :00 sites of mouth MD cervix daily. [facility] uteri [facility] nitrofurant Yes Recurrent 100mg Take 1 Univers oin 4-27 urinary capsule ity of monohyd/m-c 00:00: tract (100 mg) [place] ryst 00 infection by mouth MD (MACROBID) daily. [place] 100 mg n capsule [facility] estrogens, Yes Menopausal .625mg Take 1 Univers conjugated, 4-25 symptom tablet ity of (Premarin) 00:00: (0.625 mg) [place] 0.625 mg 00 by mouth MD tablet daily. [facility] sulfamethox 2021- No [id number] 1{tbl} Take 1 Univers azole-trime 05-17- tablet by it y of thoprim 00:00: 04:59 mouth 2 [place] (BACTRIM 00 :00 (two) Medical DS) 800-160 times Branch mg per daily for tablet 7 days. oseltamivir 2021- No [id number] 75mg Take 1 Univers (TAMIFLU) 05-16-30 capsule by ity of 75 mg 00:00: 04:59 mouth 2 [place] capsule 00 :00 (two) Medical times Branch daily for 5 days. oseltamivir 2021- No [id number] 75mg Take 1 Univers (TAMIFLU) 05-16-30 capsule by ity of 75 mg 00:00: 04:59 mouth 2 [place] capsule 00 :00 (two) Medical times Branch daily for 5 days. oseltamivir 2021- No [id number] 75mg Take 1 Univers (TAMIFLU) 3-16 05-30 capsule by ity of 75 mg 00:00: 04:59 mouth 2 [place] capsule 00 :00 (two) Medical times Branch daily for 5 days. oseltamivir 2021- No [id number] 75mg Take 1 Univers (TAMIFLU) 3-30 capsule by ity of 75 mg 00:00: 04:59 mouth 2 [place] capsule 00 :00 (two) Medical times Branch daily for 5 days. triamcinolo Yes Rash Apply Unive rs ne 03-02 topically ity of (KENALOG) 00:00: to [place] 0.1% cream 00 affected MD area(s) Anderso twice n daily. Cancer Center hydrocortis Yes Rash Apply Unive rs one 2.5% in 03-01 topically ity of EUCERIN 00:00: to [place] cream 00 affected MD (AMB-CMPD) area(s) [place] o twice n daily. Cancer Apply to Center face, groin, & inguinal folds triamcinolo 2021- No Liver Apply Uni vers ne 02-26 function topically ity o f (KENALOG) 00:00: 00:00 tests to [place] 0.1% cream 00 :00 abnormal affected M D area(s) Anderso twice n daily. Cancer Apply to Center upper upper arms ondansetron 2020-02- No Urinary 4mg Take 1 Univers (Zofran) 4 04-16 tract tablet (4 it y of mg tablet 00:00: 00:00 infection mg) by [place] 00 :00 mouth MD every 8 [place] (eight) n hours as Cancer needed for Center nausea. cephalexin 2020-02- No Urinary 500mg Take 1 Univers (Keflex) 04-16 tract capsule ity of 500 mg 00:00: 00:00 infection (500 mg) [place] capsule 00 :00 by mouth 3 MD (three) Anders[place] times a n day. Cancer Center traMADol 2020-02- No Urinary 50mg Take 1 Uni vers (Ultram) 50 04-16 tract tablet (50 ity of mg tablet 00:00: 00:00 infection mg) by [place] 00 :00 mouth MD every 8 [place] (eight) n hours as Cancer needed for Center moderate pain. ciprofloxac 2020-02- No Pyelonephri 500mg Take 1 Univers in HCl 02-25 tis tablet ity of (Cipro) 500 00:00: 00:00 (500 mg) [place] mg tablet 00 :00 by mouth MD twice [place] daily. n Cancer Center HYDROmorpho 2020-02- No Pyelonephri 4mg Take 1 Univers ne 002-25 tis tablet (4 ity of (Dilaudid) 00:00: 00:00 mg) [place] 4 mg tablet 00 :00 mouth MD every 6 [place] (six) n hours as Cancer needed for Center moderate pain. ondansetron 2020-02- No Pyelonephri 4mg Dissolve 1 Univers (Zofran 02-25 tis tablet (4 ity of ODT) 4 mg 00:00: 00:00 mg) on the ex disintegrat 00 :00 tongue MD ing tablet every 4 [place] o (four) n hours as Cancer needed for Center nausea. cefPODoxime 2020- No Urinary 100mg Take 1 Univers (VANTIN) 10-06 tract tablet ity of 100 mg 00:00: 00:00 infectious (100 mg) [place] tablet 00 :00 disease by mouth MD twice [place] daily. n Cancer Center promethazin 2021- No Malignant 12.5mg Take 1 Univers e 06-13 neoplasm of tablet ity o f (PHENERGAN) 00:00: 00:00 overlapping (12.5 mg) [place] 12.5 mg 00 :00 sites of by mouth MD tablet cervix every 6 [place] uteri (six) n hours as Cancer needed for Center nausea. HYDROmorpho 2020- No Malignant 2mg Take 1 Univers ne 06-13 neoplasm of tablet (2 it y of (Dilaudid) 00:00: 00:00 overlapping mg) by [place] 2 mg tablet 00 :00 sites of mouth MD cervix every 3 [place] uteri (three) n hours as Cancer needed for Center severe pain. ondansetron 2020- No Malignant 8mg Dissolve 1 Univers (Zofran 06-13 neoplasm of tablet (8 ity of ODT) 8 mg 00:00: 00:00 overlapping mg) on the [place] disintegrat 00 :00 sites of tongue MD ing tablet cervix every 6 Elías rso uteri (six) n hours as Cancer needed for Center vomiting. HYDROmorpho 2019-02- No Left flank 2mg Take 1 Univers ne 03-12 pain tablet (2 ity of (Dilaudid) 00:00: 00:00 mg) by Roxana sanchez 2 mg tablet 00 :00 mouth every 4 Anders[place] (four) n hours as Cancer needed for Center severe pain. Immunizations Ordered Filled Immunization Date Status Comments Sour e Immunization Name Name Pfizer SARS-CoV-2 2020-05-20 Completed Univer sity of Vaccination (Purple 00:00:[address] [place] [facility] Pfizer SARS-CoV-2 2020-04-28 Completed Univer sity of Vaccination (Purple 00:00:[address] [place] [facility] Vital Signs Vital Name Observation Time Observation Value Comments Source Systolic blood 2021-07-29 119 mm[Hg] University of pressure 00:25:[address] [facility] Diastolic blood 2021-07-29 82 mm[Hg] University o f pressure 00:25:[address] [facility] [place] Heart rate 2021-07-29 67 /min University of 00:25:[address] [facility] [place] Body temperature 2021-07-29 36.44 Janine University of 00:25:[address] [facility] [place] Respiratory rate 2021-07-29 14 /min University of 00:25:[address] [facility] [place] Body height 2021-07-29 152.4 cm University of :25:[address] [facility] [place] Body weight 2021-07-29 93.123 kg University of 00:25:[address] [facility] [place] BMI 2021-07-29 40.09 kg/m2 University of 00:25:[address] [facility] [place] Oxygen saturation 2021-07-29 98 /min [facility] in Arterial blood 00:25:00 [facility] by Pulse oximetry Branch Body temperature 2021-05-16 36.67 Janine University of 19:09:[address] [facility] [place] Respiratory rate 2021-05-16 18 /min University of 19:09:[address] [facility] [place] Body height 2021-05-16 152.4 cm University of 19:09:[address] [facility] [place] Body weight 2021-05-16 91.627 kg University of 19:09: [facility] [place] BMI 2021-05-16 39.45 kg/m2 University of 19:09:[address] [facility] [place] Oxygen saturation 2021-05-16 98 /min [facility] in Arterial blood 19:09:00 [facility] by Pulse oximetry Branch Systolic blood 2021-05-16 127 mm[Hg] University of pressure 19:09:[address] [facility] [place] Diastolic blood 2021-05-16 88 mm[Hg] University o f pressure 19:09:[address] [facility] [place] Heart rate 2021-05-16 85 /min University 19:09:[address] [facility] [place] Systolic blood 2021-06-17 119 mm[Hg] University of pressure 19:27:59 [facility] Diastolic blood 2021-06-17 69 mm[Hg] University o f pressure 19:27:59 [facility] Heart rate 2021-06-17 51 /min University 19:27:59 [facility] Body temperature 2021-06-17 35.28 Janine [facility] 19:27:59 [facility] Respiratory rate 2021-06-17 17 /min [facility] 19:27:59 [facility] Body weight 2021-06-17 91.6 kg [facility] 19:23:00 [facility] BMI 2021-06-17 39.44 kg/m2 University 19:23:00 [facility] Oxygen saturation 2021-03-01 96 /min [facility] Arterial blood 18:10:00 [facility] by Pulse oximetry [facility] Body height 2021-02-25 152.4 cm previous height [facility] f 08:00:00 [facility] Procedures Procedure Date / Time Performing Clinician Source Performed CT CHEST ABDOMEN PELVIS W 2021-06-28 02:46:05 Trista Stacy [facility] CONTRAST [facility] POC CREATININE 2021-06-28 02:19:00 Trista Stacy [facility] POCT MOLECULAR FLU 2021-05-16 19:20:00 Marsha Montejo [facility] ASSIGNMENT OF BENEFITS 2021-05-16 19:03:27 Doctor Unassigned, [facility] [place] [facility] COMPREHENSIVE METABOLIC 2021-03-09 00:43:00 Charles Warren [facility] versity [facility] GLUCOSE LEVEL 2021-03-09 00:43:00 Charles Warren [facility] BLOOD UREA NITROGEN 2021-03-09 00:43:00 Charles Warren [facility] ELECTROLYTE PANEL 2021-03-09 00:43:00 Charles Warren [facility] SERUM CREATININE 2021-03-09 00:43:00 Charles Warren [facility] .GLOMERULAR FILTRATION 2021-03-09 00:43:00 Charles Warren [facility] RATE [facility] CALCIUM LEVEL TOTAL 2021-03-09 00:43:00 Charles Warren [facility] ALBUMIN LEVEL 2021-03-09 00:43:00 Charles Warren [facility] ALKALINE PHOSPHATASE 2021-03-09 00:43:00 Charles Warren [facility] ALANINE AMINOTRANSFERASE 2021-03-09 00:43:00 [facility] ASPARTATE AMINOTRANSFERASE 2021-03-09 00:43:00 Charles Warren [facility] TOTAL PROTEIN 2021-03-09 00:43:00 Charles Warren [facility] FRACTIONATED BILIRUBIN 2021-03-09 00:43:00 Charles [facility] MURINE TYPHUS ANTIBODIES, 2021-03-01 22:40:00 Gloria Yu [facility] [place] IGG [facility] RAPID PLASMA REAGIN (RPR) 2021-03-01 22:40:00 Gloria [facility] TMP RPR PATH INTERP 2021-03-01 22:40:00 Sylvie Ford [facility] COVID-19 (SARS-COV-2) 2021-03-01 12:12:00 [facility] ASYMPTOMATIC-LT [facility] COMPLETE BLOOD COUNT W/ 2021-03-01 09:00:00 Johan Barnhart [facility] [place] DIFFERENTIAL [facility] COMPREHENSIVE METABOLIC 2021-03-01 09:00:00 [facility] PHOSPHORUS LEV[facility] 2021-03-01 09:00:00 Johan Barnhart [facility] MAGNESIUM LEVEL 2021-03-01 09:00:00 Johan Barnhart [facility] PROTHROMBIN TIME 2021-03-01 09:00:00 Johan Barnhart [facility] APTT 2021-03-01 09:00:00 Johan Barnhart [facility] Results CBC 2021-03-01 09:00:00 Johan Barnhart [facility] MANUAL DIFFERENTIAL 2021-03-01 09:00:00 Johan Barnhart [facility] GLUCOSE LEVEL 2021-03-01 09:00:00 Johan Barnhart [facility] BLOOD UREA NITROGEN 2021-03-01 09:00:00 Johan Barnhart [facility] ELECTROLYTE PANEL 2021-03-01 09:00:00 Johan Barnhart [facility] SERUM CREATININE 2021-03-01 09:00:00 Johan Barnhart [facility] .GLOMERULAR FILTRATION 2021-03-01 09:00:00 Johan Barnhart [facility] RATE [facility] CALCIUM LEVEL TOTAL 2021-03-01 09:00:00 Johan Barnhart [facility] ALBUMIN LEVEL 2021-03-01 09:00:00 Johan Barnhart [facility] ALKALINE PHOSPHATASE 2021-03-01 09:00:00 Johan Barnhart [facility] ALANINE AMINOTRANSFERASE 2021-03-01 09:00:00 Johan Barnhart [facility] ASPARTATE AMINOTRANSFERASE 2021-03-01 09:00:00 Johan Barnhart [facility] TOTAL PROTEIN 2021-03-01 09:00:00 Chaftari, Johan [facility] FRACTIONATED BILIRUBIN 2021-03-01 09:00:00 Johan Barnhart [facility] GENERAL LABORATORY ADD ON 2021-02-26 16:17:00 TeddyRicardo daly [facility] TYPE AND SCREEN 2021-02-26 06:38:00 Son, [facility] COMPLETE BLOOD COUNT W/ 2021-02-26 06:38:00 Son, Mario [facility] DIFFERENTIAL [facility] SODIUM LEVEL 2021-02-26 06:38:00 Son, [facility] CARBON DIOXIDE LEVEL 2021-02-26 06:38:00 Son, Mario [facility] CHLORIDE LEVEL 2021-02-26 06:38:00 Son, [facility] POTASSIUM LEVEL 2021-02-26 06:38:00 Son, [facility] MAGNESIUM LEVEL 2021-02-26 06:38:00 Son, [facility] BLOOD UREA NITROGEN 2021-02-26 06:38:00 Mario Trujillo [facility] SERUM CREATININE 2021-02-26 06:38:00 Son, [facility] GLUCOSE, RANDOM 2021-02-26 06:38:00 Son, [facility] HEPATIC FUNCTION PANEL 2021-02-26 06:38:00 [facility] Results CBC 2021-02-26 06:38:00 Sean Vaca [facility] MANUAL DIFFERENTIAL 2021-02-26 06:38:00 Sean Vaca [facility] SERUM CREATININE 2021-02-26 06:38:00 Lio [facility] .GLOMERULAR FILTRATION 2021-02-26 06:38:00 [facility] RATE [facility] ALBUMIN LEVEL 2021-02-26 06:38:00 Sean Vaca [facility] ALKALINE PHOSPHATASE 2021-02-26 06:38:00 Sean Vaca [facility] ALANINE AMINOTRANSFERASE 2021-02-26 06:38:00 Sean [facility] ASPARTATE AMINOTRANSFERASE 2021-02-26 06:38:00 Sean [facility] TOTAL PROTEIN 2021-02-26 06:38:00 Sean Vaca [facility] FRACTIONATED BILIRUBIN 2021-02-26 06:38:00 Sean [facility] ABORH 2021-02-26 06:38:00 Sean Vaca [facility] ANTIBODY SCREEN 2021-02-26 06:38:00 Sean Vaca [facility] ANION GAP 2021-02-26 06:38:00 Sean Vaca [facility] CLOT EXPIRATION DATE 2021-02-26 06:38:00 Sean Vaca [facility] TMP INTERPRETATION 2021-02-26 06:38:00 [facility] S[facility] NEGATIVE MD [facility] PERIPHERAL SMR FOR DOC 2021-02-26 06:38:00 Sean [facility]aca [facility] REVIEW [facility] US ABDOMEN COMPLETE 2021-02-25 19:08:50 Raza Powers [facility] GENERAL LABORATORY ADD ON 2021-02-25 18:07:00 Ricardo [facility] CT HEAD WO CONTRAST 2021-02-25 09:30:04 Mario Trujillo [facility] URINE CULTURE 2021-02-25 05:09:00 Raza Powers [facility] URINALYSIS WITH 2021-02-25 05:09:00 Raza Powers [place] MICROSCOPIC IF INDICATED MD Mck[facility] URINALYSIS MICROSCOPIC 2021-02-25 05:09:00 Raza Powers [facility] CMV ANTIBODY IGG AND IGM 2021-02-25 04:58:00 Raza Powers [facility] HSV 1 & 2 QUANTITATIVE, 2021-02-25 04:58:00 Raza Powers [facility] PLASMA [facility] HSV SEROLOGY PATH REVIEW 2021-02-25 04:58:00 Raza Powers [facility] DARNELL DELGADILLO VIRUS PANEL 2021-02-25 04:58:00 Raza Powers [facility] CMV ANTIBODY IGG AND IGM 2021-02-25 04:58:00 Rzaa Powers [facility] PATH [facility] BASIC METABOLIC PANEL, 2021-02-25 04:58:00 Raza Powers [facility] CALCIUM TOTAL [facility] THYROID STIMULATING 2021-02-25 04:58:[address] [facility] HORMONE [facility] HEPATIC FUNCTION PANEL 2021-02-25 04:58:00 Raza Powers [facility] GAMMA GLUTAMYL TRANSFERASE 2021-02-25 04:58:00 [facility] PROTHR[facility]BIN TIME 2021-02-25 04:58:00 Raza Powers [facility] HEPATITIS A IGM ANTIBODY 2021-02-25 04:58:00 Raza Powers [facility] SERUM [facility] HEPATITIS A ANTIBODY IGG 2021-02-25 04:58:00 Raza Powers [facility] HEPATITIS B SURFACE 2021-02-25 04:58:[address] [facility] ANTIGEN, SERUM [facility] HEPATITIS B SURFACE 2021-02-25 04:58:[address] [facility] ANTIBODY, SERUM [facility] HEPATITIS B CORE ANTIBODY 2021-02-25 04:58:00 Raza Powers [facility] IGM ACUTE TITER [facility] HBV DNA QUANT 2021-02-25 04:58:00 Raza [facility] HEPATITIS C VIRUS ANTIBODY 2021-02-25 04:58:00 Raza Powers [facility] HEPATITIS C VIRUS RNA 2021-02-25 04:58:00 Raza Powers [facility] DETECT/QUANT, SERUM [facility] HEV IGG ANTIBODY, SERUM 2021-02-25 04:58:00 R[facility] Powers [facility] HEV IGM ANTIBODY SCREEN, 2021-02-25 04:58:00 Raza Powers [facility] SERUM [facility] CMV QUANT PCR 2021-02-25 04:58:00 Raza Powers [facility] DARNELL DELGADILLO VIRUS PANEL 2021-02-25 04:58:00 Raza Powers [facility] HP MD DARNELL-DELGADILLO VIRUS 2021-02-25 04:58:00 Raza Powers [facility] QUANTITATIVE PCR ANALYSIS CA And [facility] Cancer [facility] BLOOD Center HSV 1+2 ANTIBODY 2021-02-25 04:58:00 Raza Powers [facility] HIV-1/2 ANTIGEN AND 2021-02-25 04:58:[address] [facility] ANTIBODIES, FOURTH [facility] C ancer [facility] Center CERULOPLASMIN LVL 2021-02-25 04:58:00 Raza Powers [facility] ALPHA 1 ANTRITRYPSIN, 2021-02-25 04:58:00 Raza Powers [facility] SERUM [facility] ANTINUCLEAR ANTIBODY HEP-2 2021-02-25 04:58:00 Raza Powers [facility] SUBSTRATE IGG [facility] MITOCHONDRIAL ANTIBODIES, 2021-02-25 04:58:00 Raza Powers [facility] M2, SERUM [facility] LIVER/KIDNEY MICROSOME 2021-02-25 04:58:00 Raza Powers [facility] TYPE 1 ANTIBODY, SERUM MD Arboleda [facility] IMMUNOGLOBULIN G SERUM 2021-02-25 04:58:00 Raza Powers [facility] IMMUNOGLOBULIN M SERUM 2021-02-25 04:58:00 Raza Powers [facility] IMMUNOGLOBULIN A SERUM 2021-02-25 04:58:00 Raza Powers [facility] TISSUE TRANSGLUTAMINASE 2021-02-25 04:58:00 Raza Powers [facility] ANTIBODY, SERUM [facility] IRON LEVEL 2021-02-25 04:58:00 Raza Powers [facility] TRANSFERRIN 2021-02-25 04:58:00 Raza Powers [facility] FERRITIN LVL 2021-02-25 04:58:00 Raza Powers [facility] HEPATITIS B CORE ANTIBODY 2021-02-25 04:58:00 [facility] GLUCOSE LEVEL 2021-02-25 04:58:00 Raza Powers [facility] BLOOD UREA NITROGEN 2021-02-25 04:58:00 Raza Powers [facility] ELECTROLYTE PANEL 2021-02-25 04:58:00 Priya [facility] SERUM CREATININE 2021-02-25 04:58:00 Priya [facility] .GLOMERULAR FILTRATION 2021-02-25 04:58:00 Raza Powers [facility] CALCIUM LEVEL TOTAL 2021-02-25 04:58:00 Raza Powers [facility] ALBUMIN LEVEL 2021-02-25 04:58:00 Raza Powers [facility] ALKALINE PHOSPHATASE 2021-02-25 04:58:00 Raza Powers [facility] ALANINE AMINOTRANSFERASE 2021-02-25 04:58:00 Raza Powers [facility] ASPARTATE AMINOTRANSFERASE 2021-02-25 04:58:00 Raza [facility] TOTAL PROTEIN 2021-02-25 04:58:00 Raza Powers o f [facility] FRACTIONATED BILIRUBIN 2021-02-25 04:58:00 Raza Powers [facility] HEPATITIS B CORE TOTAL 2021-02-25 04:58:00 Raza Powers [facility] ANTIBODY [facility] HEPATITIS B SURFACE AG 2021-02-25 04:58:00 Raza Powers [facility] W/CONFIRM [facility] HP DARNELL-DELGADILLO VIRUS 2021-02-25 04:58:00 Raza Powers [facility] QUANTITATIVE PCR ANALYSIS And [facility] INTERPRETATION AND REPORT Center [place] MISCELLANEOUS TEST 2021-02-25 04:58:00 Raza Powers [facility] TMP HIV 1/2 AG&AB PATH 2021-02-25 04:58:00 Raza Powers [facility] INTERP [facility] XR CHEST 1 VW 2021-02-25 02:52:27 Raza Powers o f [facility] POC VENOUS BLOOD GAS + 2021-02-25 02:52:00 Raza Powers [facility] LACTATE [facility] BLOODCULTURE 2021-02-25 02:45:00 Raza Powers o [facility] COMPLETE BLOOD COUNT W/ 2021-02-25 02:45:00 Raza Powers [facility] DIFFERENTIAL [facility] COMPREHENSIVE METABOLIC 2021-02-25 02:45:00 Raza Powers [facility] PANEL [facility] MAGNESIUM LEVEL 2021-02-25 02:45:00 Raza Powers o [facility] PHOSPHORUS LEVEL 2021-02-25 02:45:00 Raza Powers [facility] LACTATE DEHYDROGENASE 2021-02-25 02:45:00 Raza Powers sity [facility] C REACTIVE PROTEIN 2021-02-25 02:45:00 [facility] PROCALCITONIN 2021-02-25 02:45:00 Raza Powers [facility] GLUCOSE LEVEL 2021-02-25 02:45:00 Raza Powers [facility] BLOOD UREA NITROGEN 2021-02-25 02:45:00 Raza Powers [facility] ELECTROLYTE PANEL 2021-02-25 02:45:00 Priya [facility] SERUM CREATININE 2021-02-25 02:45:00 Priya [facility] .GLOMERULAR FILTRATION 2021-02-25 02:45:00 Raza Powers [facility] CALCIUM LEVEL TOTAL 2021-02-25 02:45:00 Raza Powers [facility] ALBUMIN LEVEL 2021-02-25 02:45:00 Raza Powers [facility] ALKALINE PHOSPHATASE 2021-02-25 02:45:00 Raza Powers [facility] ALANINE AMINOTRANSFERASE 2021-02-25 02:45:00 Raza Powers [facility] ASPARTATE AMINOTRANSFERASE 2021-02-25 02:45:00 [facility] TOTAL PROTEIN 2021-02-25 02:45:00 Raza Powers [facility] FRACTIONATED BILIRUBIN 2021-02-25 02:45:00 Raza Powers [facility] Results CBC 2021-02-25 02:45:00 Raza Powers [facility] MANUAL DIFFERENTIAL 2021-02-25 02:45:00 Raza Powers [facility] RESPIRATORY VIRAL PANEL + 2021-02-25 02:28:00 [facility] COVID-[facility], NASOPHARYNGEAL MD [facility] Center CT ABDOMEN PELVIS W 2021-02-13 13:14:30 Deloris, Mckay [facility] Canc er Center POC ICON 20 URINE 2021-02-13 12:52:00 [place] Love [facility] TEST [facility] URINALYSIS WITH 2021-02-13 11:49:00 Deloris [facility] MICROSCOPIC IF INDICATED MD Mckinley [facility] URINALYSIS MICROSCOPIC 2021-02-13 11:49:00 Valeria Puentesnathan [facility] COMPLETE BLOOD COUNT W/ 2021-02-13 11:31:00 Deloris [facility] DIFFERENTIAL [facility] COMPREHENSIVE METABOLIC 2021-02-13 11:31:00 Leshara, [facility] PANEL [facility] Results CBC 2021-02-13 11:31:[address] [facility] MANUAL DIFFERENTIAL 2021-02-13 11:31:00 Deloris [facility] GLUCOSE LEVEL 2021-02-13 11:31:[address] [facility] BLOOD UREA NITROGEN 2021-02-13 11:31:00 Deloris [facility] ELECTROLYTE PANEL 2021-02-13 11:31:00 Deloris [facility] SERUM CREATININE 2021-02-13 11:31:00 Deloris, [facility] .GLOMERULAR FILTRATION 2021-02-13 11:31:00 Mckay Puentes [facility] RATE [facility] CALCIUM LEVEL TOTAL 2021-02-13 11:31:00 Deloris [facility] ALBUMIN LEVEL 2021-02-13 11:31:[address] [facility] ALKALINE PHOSPHATASE 2021-02-13 11:31:00 Mckay Puentes [facility] ALANINE AMINOTRANSFERASE 2021-02-13 11:31:00 Mckay Puentes [facility] ASPARTATE AMINOTRANSFERASE 2021-02-13 11:31:00 [facility] TOTAL PROTEIN 2021-02-13 11:31:00 Mckay Puentes o f [facility] FRACTIONATED BILIRUBIN 2021-02-13 11:31:00 Mckay Puentes [facility] SERUM CREATININE 2021-01-16 14:33:47 Sean Vaca [facility] SERUM CREATININE 2021-01-16 14:33:47 Sean Vaca [facility] .GLOMERULAR FILTRATION 2021-01-16 14:33:47 [facility]aca [facility] RATE [facility] CT ABDOMEN PELVIS W 2020-11-24 14:11:[address] [facility] CONTRAST [facility] URINE CULTURE 2020-11-24 10:53:00 Candice Garcia [facility] URINALYSIS WITH 2020-11-24 10:53:00 Candice Garcia [facility] MICROSCOPIC IF INDICATED MD Mckinley [facility] URINALYSIS MICROSCOPIC 2020-11-24 10:53:00 Candice [facility] POC CHEM 8 2020-11-24 10:16:00 Provider, Unknown [facility] POC VENOUS BLOOD GAS + 2020-11-24 10:08:00 Provider, Unknown Uni versity [facility] LACTATE [facility] COMPLETE BLOOD COUNT W/ 2020-11-24 10:02:00 [facility] DIFFERENTIAL [facility] PROTHROMBIN TIME 2020-11-24 10:02:00 Candice Garcia [facility] APTT 2020-11-24 10:02:00 Candice Garcia [facility] TYPE AND SCREEN 2020-11-24 10:02:00 Candice Garcia [facility] COMPREHENSIVE METABOLIC 2020-11-24 10:02:00 Candice [facility] [place] PANEL [facility] LACTATE DEHYDROGENASE 2020-11-24 10:02:00 Candice Garcia versity of [facility] MAGNESIUM LEVEL 2020-11-24 10:02:00 Candice Garcia y [facility] PHOSPHORUS LEVEL 2020-11-24 10:02:00 [facility] 2020-11-24 10:02:00 Candice Garcia [facility] y [facility] ANTIBODY SCREEN 2020-11-24 10:02:00 Candice Garcia [facility] Results CBC 2020-11-24 10:02:00 Candice Garcia [facility] MANUAL DIFFERENTIAL 2020-11-24 10:02:00 Candice Garcia [facility] GLUCOSE LEVEL 2020-11-24 10:02:00 Candice Garcia [facility] BLOOD UREA NITROGEN 2020-11-24 10:02:00 Candice Garcia [facility] ELECTROLYTE PANEL 2020-11-24 10:02:00 Candice Garcia [facility] SERUM CREATININE 2020-11-24 10:02:00 [facility] .GLOMERULAR FILTRATION 2020-11-24 10:02:00 Candice Garcia [facility] [place] RATE [facility] CALCIUM LEVEL TOTAL 2020-11-24 10:02:00 Candice Garcia [facility] ALBUMIN LEVEL 2020-11-24 10:02:00 Candice Garcia y [facility] ALKALINE PHOSPHATASE 2020-11-24 10:02:00 Candice Garcia [facility] ALANINE AMINOTRANSFERASE 2020-11-24 10:02:00 Radha, Candice Jillian [facility] ASPARTATE AMINOTRANSFERASE 2020-11-24 10:02:00 Candice Garcia [facility] TOTAL PROTEIN 2020-11-24 10:02:00 [facility] FRACTIONATED BILIRUBIN 2020-11-24 10:02:00 Candice Garcia [facility] CLOT EXPIRATION DATE 2020-11-24 10:02:00 [place] Love [facility] TMP INTERPRETATION 2020-11-24 10:02:00 Candice Garcia [facility] ANTIBODY SCREEN NEGATIVE MD [facility] COMPLETE BLOOD COUNT W/ 2020-11-05 09:04:00 Julia Ramos [facility] DIFFERENTIAL [facility] SODIUM LEVEL 2020-11-05 09:04:00 Julia Ramos [facility] CARBON DIOXIDE LEVEL 2020-11-05 09:04:00 Julia Ramos [facility] CHLORIDE LEVEL 2020-11-05 09:04:00 Julia Ramos [facility] POTASSIUM LEVEL 2020-11-05 09:04:00 Julia Ramos [facility] MAGNESIUM LEVEL 2020-11-05 09:04:00 Julia Ramos [facility] BLOOD UREA NITROGEN 2020-11-05 09:04:00 Julia Ramos [facility] SERUM CREATININE 2020-11-05 09:04:00 Julia Ramos [facility] GLUCOSE, RANDOM 2020-11-05 09:04:00 Julia Ramos [facility] Results CBC 2020-11-05 09:04:00 Judy [facility] MANUAL DIFFERENTIAL 2020-11-05 09:04:00 Judy Jessenia [facility] SERUM CREATININE 2020-11-05 09:04:00 Judy [facility] .GLOMERULAR FILTRATION 2020-11-05 09:04:00 Jessenia aMyer [facility] ANION GAP 2020-11-05 09:04:00 Judy [facility] COMPLETE BLOOD COUNT W/ 2020-11-04 10:13:00 Julia Ramos [facility] DIFFERENTIAL [facility] SODIUM LEVEL 2020-11-04 10:13:00 Ramos, [facility] CARBON DIOXIDE LEVEL 2020-11-04 10:13:00 Julia Ramos [facility] CHLORIDE LEVEL 2020-11-04 10:13:00 Rachel [facility] POTASSIUM LEVEL 2020-11-04 10:13:00 Ramos, [facility] MAGNESIUM LEVEL 2020-11-04 10:13:00 Ramos, [facility] BLOOD UREA NITROGEN 2020-11-04 10:13:00 Julia Ramos [facility] SERUM CREATININE 2020-11-04 10:13:00 Rachel [facility] GLUCOSE, RANDOM 2020-11-04 10:13:00 Rachel [facility] Results CBC 2020-11-04 10:13:00 Judy [facility] MANUAL DIFFERENTIAL 2020-11-04 10:13:00 Judy [facility] SERUM CREATININE 2020-11-04 10:13:00 Judy [facility] .GLOMERULAR FILTRATION 2020-11-04 10:13:00 Jessenia Mayer [facility] ANION GAP 2020-11-04 10:13:00 Judy [facility] XR ABDOMEN 1 VW PORTABLE 2020-11-03 11:12:14 Julia Ramos Uni [facility] URINE CULTURE 2020-11-03 07:55:00 Idania Ford [facility] URINALYSIS WITH 2020-11-03 07:55:00 Idania Ford [facility] MICROSCOPIC IF INDICATED MD [facility] URINALYSIS MICROSCOPIC 2020-11-03 07:55:00 Idania Ford [facility] CT ABDOMEN PELVIS W 2020-11-03 07:43:[address] [facility] CONTRAST [facility] POC VENOUS BLOOD GAS + 2020-11-03 05:59:00 Idania Ford [facility] LACTATE [facility] INFLUENZA A/B + COVID-19 2020-11-03 05:57:00 Idania Ford [facility] ASYMPTOMATIC-L [facility] COMPLETE BLOOD COUNT W/ 2020-11-03 05:57:00 Idania Ford [facility] DIFFERENTIAL [facility] COMPREHENSIVE METABOLIC 2020-11-03 05:57:00 Idania Ford [facility] PANEL [facility] MAGNESIUM LEVEL 2020-11-03 05:57:00 Liliana Idania [facility] PHOSPHORUS LEVEL 2020-11-03 05:57:00 Liliana Idania [facility] LACTATE DEHYDROGENASE 2020-11-03 05:57:00 Idania Ford [facility] sity [facility] AMYLASE LEVEL 2020-11-03 05:57:00 Liliana [facility] LIPASE LEVEL 2020-11-03 05:57:00 Liliana Idania [facility] Results CBC 2020-11-03 05:57:00 Liliana Idania [facility] MANUAL DIFFERENTIAL 2020-11-03 05:57:00 Idania Ford [facility] GLUCOSE LEVEL 2020-11-03 05:57:00 Idania Ford [facility] BLOOD UREA NITROGEN 2020-11-03 05:57:00 Idania Ford [facility] ELECTROLYTE PANEL 2020-11-03 05:57:00 Idania Ford [facility] SERUM CREATININE 2020-11-03 05:57:00 Liliana Idania [facility] .GLOMERULAR FILTRATION 2020-11-03 05:57:00 Idania Ford [facility] CALCIUM LEVEL TOTAL 2020-11-03 05:57:00 Idania Ford [facility] ALBUMIN LEVEL 2020-11-03 05:57:00 Idania Ford [facility] ALKALINE PHOSPHATASE 2020-11-03 05:57:00 Idania Ford [facility] ALANINE AMINOTRANSFERASE 2020-11-03 05:57:00 Idania Ford [facility] ASPARTATE AMINOTRANSFERASE 2020-11-03 05:57:00 Idania Ford [facility] TOTAL PROTEIN 2020-11-03 05:57:00 Idania Ford [facility] FRACTIONATED BILIRUBIN 2020-11-03 05:57:00 Idania Ford [facility] Plan of Care Planned Activity Planned Date Details Comments Source Future Scheduled 2021-10-29 COVID-19 Vaccination Uni [facility] Test 12:57:49 (3 - Pfizer risk [facility] Cancer series) [code = Center COVID-19 Vaccination (3 - Pfizer risk series)] Encounters Start End Encounter Admission Attending Care Care Encounter Source Date/Time Date/Time Type Type Clinicians Facility Department ID 2021-03-16 Outpatient [facility], [facility] [id number] 06:27:04 PROVIDER Robles o n 2021-01-05 Outpatient SYSTEM, [facility] [id number] 09:50:14 PROVIDER Robles sosa 2020-11-14 Outpatient SYSTEM, [facility] [id number] 12:08:48 PROVIDER Robles sosa 2020-10-09 Outpatient SYSTEM, [facility] [id number] 15:15:08 PROVIDER Robles sosa 2021-10-17 2021-10-17 Orders Tang, [id number] Univers 00:00:00 00:00:00 Only Ping Ndiaye [id number] ity of [id number] [place] .[id number] .8 [facility] 2021-08-01 2021-08-01 [facility] [id number] Univers 00:00:00 00:00:00 [facility] [id number] it y of [facility] [id number] Isaias as BOONE?BLEA [id number] [facility] [address] [facility] 2021-08-01 2021-08-01 Patient Nurse, Andrew [facility] [id number] Univers 00:00:00 00:00:00 Secure Msg Db Urgent [place] [id number] [place]y of Care [id number] [id number] [facility] [address] [facility] 2021-07-29 2021-07-29 [facility] [id number] Univers 00:00:00 00:00:00 [facility] [id number] it y of [place] [id number] Isaias as BOONE?BLEA [id number] [facility] [address] [facility] 2021-07-28 2021-07-28 Outpatient R [facility] [id number] Univers 19:20:00 19:56:11 MARSHA ity of [facility] [place] 2021-07-28 2021-07-28 Urgent Gustabo [facility] [id number] Univers 19:20:00 19:56:11 Care [facility] [id number] ity of [place] [id number] Isaias as BOONE?BLEA [id number] [address] MEDICAL OFFICE BUILDING 2021-07-01 2021-07-01 Orders Clyde, 1.2.840.1 [id number] Univers 00:00:00 00:00:00 Only Ping Ndiaye [id number] ity of [id number] [place] .3.649298 MD Roe8 [facility] 2021-07-01 2021-07-01 Telephone Lio, 1.2.840.1 [id number] Univers 00:00:00 00:00:00 Sean [id number] ity of [id number] [place] .[id number] MD Cat [facility] 2021-06-27 2021-06-27 Venus Stacy, 1.2.840.1 [id number] Univers 18:50:00 23:59:00 Encounter Trista Blas [id number] ity of [id number] [place] .3.469240 MD Cat [facility] 2021-06-27 2021-06-27 Travel 1.2.840.1 [id number] Univers 00:00:00 00:00:00 48218.1.1 350.1.13.41 ity of 3.412.2.7 [place].698 [place] .3.909[place] 084.8 MD Cat [facility] 2021-06-25 2021-06-25 Hayley Stacy 1.2.840.1 [id number] Univers 00:00:00 00:00:00 Only Trista Blas 84575.1.1 i ty of 3.412.2.7 [place] .3.573893 MD Cat [facility] 2021-06-25 2021-06-25 Hayley Stacy 1.2.840.1 [id number] Univers 00:00:00 00:00:00 Only Trista Blas 02676.1.1 i ty of 3.412.2.7 [place] .3.179667 MD Cat [facility] 2021-06-19 2021-06-19 Hayley Tang, 1.2.840.1 [id number] Univers 00:00:00 00:00:00 Only Ping L 81743.1.1 ity of 3.412.2.7 [place] .3.948809 MD Cat [facility] 2021-06-17 2021-06-17 Outpatient MARTELL VACA MDA MDA [id number] 14:22:28 15:09:21 SEAN Arboleda [facility] 2021-06-17 2021-06-17 Office Lio 1.2.840.1 [id number] Univers 14:00:00 15:09:21 Visit Sean 63762.1.1 ity of 3.412.2.7 [place] .3.744389 MD Cat [facility] 2021-06-17 2021-06-17 Travel 1.2.840.1 1.2.369.879 [id number] [id number] Univers 00:00:00 00:00:00 61899.1.1 350.1.13.41 ity of 3.412.2.7 [place].3.698 [place] .3.364845 084.8 MD Cat [facility] 2021-05-27 2021-05-27 Hayley Stacy 1.2.840.1 [id number] Univers 00:00:00 00:00:00 Only Trista Blas 77525.1.1 i ty of 3.412.2.7 [place] .3.579730 MD Cat [facility] 2021-05-21 2021-05-21 Telephone Lio 1.2.840.1 [id number] Univers 00:00:00 00:00:00 Sean 94426.1.1 ity of 3.412.2.7 [place] .3.205300 MD Cat [facility] 2021-05-17 2021-05-17 [facility] 1.2.840.114 [id number] Univers 00:00:00 00:00:00 Management Marsha HEALTH 350.1.13.10 ity of [place] 4.2.7.2.686 Isaias as BOONE?BLEA [id number] [address] [facility] 2021-05-16 2021-05-16 Outpatient R GUSTABO [facility] [id number] Univers 14:00:00 14:44:04 MARSHA ity of [facility] [place] 2021-05-16 2021-05-16 [facility] 1.2.840.114 [id number] Univers 14:00:00 14:44:04 Care [facility] 350.1.13.10 it y of [place] 4.2.7.2.686 Isaias as BOONE?BLEA [phone] [address] [facility] 2021-05-16 2021-05-16 Letter Doctor GILBERT 1.2.840.114 [id number] Univers 00:00:00 00:00:00 (Out) Unassigned, HALEY 350.1.13.10 ity of [place] [facility] 4.2.7.2.686 Isaias as [phone] [facility] [address] 2021-05-16 2021-05-16 Letter Doctor GILBERT 1.2.840.114 [id number] Univers 00:00:00 00:00:00 (Out) Unassigned, HALEY 350.1.13.10 ity of [place] [facility] 4.2.7.2.686 Isaias as [phone] [facility] [address] 2021-05-16 2021-05-16 Orders Doctor GILBERT 1.2.840.114 [id number] Univers 00:00:00 00:00:00 Only Unassigned, HALEY 350.1.13.10 ity of [place] [facility] 4.2.7.2.686 Isaias as [phone] [facility] [address] 2021-03-08 2021-03-08 [facility] 1.2.840.1 [id number] Univers 07:45:00 23:59:00 Encounter Sean 95923.1.1 it y of 3.412.2.7 [place] .3.441767 MD Cat [facility] 2021-03-08 2021-03-08 Outpatient MARTELL LIO [facility] [id number] 07:45:00 23:59:00 SEAN Robles o n 2021-03-02 2021-03-02 Orders Anne, 1.2.840.1 [id number] Univers 00:00:00 00:00:00 Only Hollie Carpenter 03580.1.1 ity of 3.412.2.7 [place] .3.602670 MD Roe8 [facility] 2021-03-01 2021-03-01 [facility] JackiJohan fu 1.2.840.1 [id number] Univers 01:59:00 21:00:00 Encounter Gold Rosas 93150.1.1 ity of 3.412.2.7 [place] .3.165602 MD Cat [facility] 2021-03-01 2021-03-01 Inpatient UR 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 [id number] MD 01:59:00 21:00:00 GOLD Mei so sheila 2021-03-01 2021-03-01 Emergency MARTELL BARNHART [facility] [id number] 03:23:22 03:40:09 JOHAN sosa 2021-03-01 2021-03-01 Travel 1.2.840.1 1.2.346.453 [id number] Univers 00:00:00 00:00:00 69957.1.1 350.1.13.41 ity of 3.412.2.7 [place].3.698 [place] .3.836879 084.8 MD Roe8 [facility] 2021-02-27 2021-02-27 Hayley Warren 1.2.840.1 [id number] Univers 00:00:00 00:00:00 Only Charles Dowell 86852.1.1 ity of 3.412.2.7 [place] .3.054900 MD .8 [facility] 2021-02-24 2021-02-26 Inpatient ER OTTO VACA CORPORATE LEGAL MANAGER [id number] MD 20:16:00 11:24:00 SEAN Oncology Sigifredo so n 2021-02-24 2021-02-26 Emergency PowersRaza perez 1.2.840.1 [id number] [facility] 20:16:00 11:24:00 Gopal Cruz 53603.1.1 ity of Sean Vaca 3.412.2.7 [place] .3.534115 MD Roe8 [facility] 2021-02-25 2021-02-25 Travel 1.2.840.1 1.2.756.069 [id number] [id number] Univers 00:00:00 00:00:00 71845.1.1 350.1.13.41 ity of 3.412.2.7 2.[place].7.3.698 [place] .3.375459 084.8 MD Roe8 [facility] 2021-02-24 2021-02-24 Travel 1.2.840.1 1.2.459.036 [id number] Univers 00:00:00 00:00:00 83420.1.1 350.1.13.41 ity of 3.412.2.7 2.[place].7.3.698 [place] .3.182878 084.8 MD Roe8 [facility] 2021-02-13 2021-02-13 Emergency UR GILBERT LOVE [facility] Emergency 10 [id number] 05:02:00 09:13:00 Robles o n 2021-02-13 2021-02-13 Emergency Mckay Puentes 1.2.840.1 [id number] [facility] 05:02:00 09:13:00 Gilbert Love 22807.1.1 ity of 3.412.2.7 [place] .3.267584 MD Roe8 [facility] 2021-02-13 2021-02-13 Travel 1.2.840.1 1.2.876.693 [id number] Univers 00:00:00 00:00:00 76430.1.1 350.1.13.41 ity of 3.412.2.7 2.2.7.3.698 [place] .3.931313 084.8 MD Roe8 [facility] 2021-01-16 2021-01-16 Gabrielle Vaca 1.2.840.1 [id number] Univers 08:45:00 14:32:33 Sean 09704.1.1 ity of 3.412.2.7 [place] .3.727748 MD Roe8 [facility] 2021-01-16 2021-01-16 Outpatient MARTELL VACA MDA [facility] [id number] 08:37:33 14:32:33 SEAN Robles [facility] 2021-01-16 2021-01-16 Outpatient MARTELL VACA MDA [facility] [id number] 08:27:48 08:29:16 SEAN Robles [facility] 2021-01-16 2021-01-16 Travel 1.2.840.1 1.2.557.490 [id number] Univers 00:00:00 00:00:00 95143.1.1 350.1.13.41 ity of 3.412.2.7 2.[place]7.3.698 [place] .3.879742 084.8 MD Cat [facility] 2021-01-14 2021-01-14 Hayley Lynn 1.2.840.1 [id number] Univers 00:00:00 00:00:00 Only Nadege A 85103.1.1 it y of 3.412.2.7 [place] .3.740325 MD Roe8 [facility] 2021-01-14 2021-01-14 Anup Acevedo.2.840.1 [id number] Univers 00:00:00 00:00:00 Nadege A 28333.1.1 it y of 3.412.2.7 [place] .3.428608 MD Roe8 [facility] 2021-01-14 2021-01-14 Orders Dariel, 1.2.840.1 [id number] Univers 00:00:00 00:00:00 Only Rudypennie 67410.1.1 ity of 3.412.2.7 [place] .3.171863 MD Roe8 [facility] 2020-11-24 2020-11-24 Emergency ER GILBERT LOVE [facility] Emergency 10 [id number] MD 04:40:00 12:11:00 Robles sosa 2020-11-24 2020-11-24 Emergency Gilbert Love 1.2.840.1 [id number] Univers 04:40:00 12:11:00 08157.1.1 ity of 3.412.2.7 [place] .3.139132 MD Roe8 [facility] 2020-11-24 2020-11-24 Travel 1.2.840.1 1.2.729.147 [id number] Univers 00:00:00 00:00:00 36197.1.1 350.1.13.41 ity of 3.412.2.7 [place]7.3.698 [place] .3.034296 084.8 MD Roe8 [facility] 2020-11-14 2020-11-14 Outpatient MARTELL LEYVA IV [facility] [id number] 13:45:23 13:45:23 JONEL sosa 2020-11-13 2020-11-13 Telemedici Gordon, 1.2.840.1 [id number] Univers 14:30:00 15:00:00 ne Jonel Ho 86090.1.1 it y of 3.412.2.7 [place] .3.955908 MD Roe8 [facility] 2020-11-13 2020-11-13 Telephone Shanice, 1.2.840.1 [id number] Univers 00:00:00 00:00:00 Lisa Carpenter 79574.1.1 i ty of 3.412.2.7 [place] .3.930127 MD Roe8 [facility] 2020-11-03 2020-11-05 Inpatient 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1.13.41 ity of 3.412.2.7 2[place]7.3.698 [place] .3.020744 084.8 MD Roe8 [facility] 2020-10-06 2020-10-06 Emergency ER KVNG VEGAS [facility] Emergency 10 [id number] 15:36:00 20:57:00 Robles o sheila 2020-10-06 2020-10-06 Emergency EL KVNG VEGAS [facility] [id number] 18:57:59 18:58:19 Robles o sheial 2020-09-07 2020-09-09 Inpatient ER 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 If a problem is suspected with a patient's result, a sampl e should be sent to the lab oratory for confirmatory te sting. Method description: e i-STAT is an analyzer used f or in vitro quantification of various analytes in who le blood. The device uses a s dada disposable cart ridge which contains microf abricated sensors, a olu bration solution, fluid ics system, and a waste chamber . Each test cartridge conta ins chemically sensitive biose nsors on a silicon chip th at are configured to p erform specific tests. The micr ofabricated sensors measure analyte concentration b y an electrochemical assay. POC eGFR-AA (test code = 134 See_Comment Nor mal eGFR >= 60 mL/min/1.73 04072-8) m2 The eGFR is calculated using the CKD-E PI equation. The eGFR declin es with age. eGFR <60 mL/min /1.73 m2 is considered as " decreased" This equation should only be used for patients 18 and older. According to e National Kidney Foundati on's Kidney Disease Outcome Quality Initiative (KDO QI) classification and 2012 Kidney Disease Improvi ng Global Outcomes (KDIGO ) Clinical Practice Guidel ine, the stage of CKD should b e categorized based on estima charlene GFR. Stage Description GFR mL/min/1.73 m21 Kidney hero ge with normal or high GFR >=9 02 Kidney damage with mil d decrease in GFR 60-893a Mil d to moderate decrease in GFR 45-593b Moderate to sev ere decrease in GFR 30-444 Elvira re decrease in GFR 15-295 Kidn ey failure <15 (or dialysis) [ Automated message] The sy stem which generated this result transmitted ref erence range: >=60 mL/min/1.7 3 m2. The reference range was not used to interpret is result as normal/abnormal . POC eGFR-LIN (test code = 116 See_Comment No rmal eGFR >= 60 mL/min/1.73 12000-9) m2 The eGFR is calculated using the CKD-E PI equation. The eGFR declin es with age. eGFR <60 mL/min /1.73 m2 is considered as " decreased" This equation should only be used for patients 18 and older. According to th e National Kidney Foundati on's Kidney Disease Outcome Quality Initiative (KDO QI) classification and 2012 Kidney Disease Improvi ng Global Outcomes (KDIGO ) Clinical Practice Guidel ine, the stage of CKD should b e categorized based on estima charlene GFR. Stage Description GFR mL/min/1.73 m21 Kidney hero ge with normal or high GFR >=9 02 Kidney damage with mil d decrease in GFR 60-893a Mil d to moderate decrease in GFR 45-593b Moderate to sev ere decrease in GFR 30-444 Elvira re decrease in GFR 15-295 Kidn ey failure <15 (or dialysis) [Automated message] The sy stem which generated this result transmitted ref erence range: >=60 mL/min/1.7 3 m2. The reference range was not used to interpret th is result as normal/abnormal . POC Clean Dev (test code 2 = 6672) Performing Lab (test code [facility] = 28857) [place] MD Arboleda on Clinical Lab, [facility], [place], [place] [address]; Offbearer: Birgit Mendoza MD [facility] CenterPOCT MOLECULAR [id number] 19:24:06 Test Item Value Reference Range Interpretation Comments POCT Molecular FluA (test code = Positive Negative A 00029-8) Lab Interpretation (test code = Abnormal 77699-7) [facility]raction[facility] [id number] 01:57:22 Test Item Value Reference Range Interpretation Comments Bili Total (test 0.8 mg/dL See_Comment Indocyanine Green (ICG) code = 5096) may cause false ly elevated biliru bin results. Total and direct bilirubin must not be measured from s amples containing indo cyanine green. False el evation of total bilirubin can be seen in patient s with IgG concentrations above 28 g/L. [Automated message] The system [facility] generated this result transmitted ref erence range: <=1.2. T he reference range was not used to interpr et this result as normal/abnormal . Bili Direct (test 0.2 mg/dL See_Comment Indocyanin e Green (ICG) code = 5094) may cause false ly elevated biliru bin results. Total and direct bilirubin must not be measured from s amples containing indo cyanine green. [Automat ed message] The sy stem which generated this result transmitted ref erence range: <=0.3. T he reference range was not used to interpr et this result as normal/abnormal . Bili Indirect (test 0.6 mg/dL 0.0-0.9 code = 5095) [facility] [place]estoneGlomerular Filtration Rate 2021-03-09 01:57:21 Test Item Value Reference Range Interpretation Comments eGFR-AA (test code 125 See_Comment Normal eG FR: >= 60 = 8062) mL/min/1.73 m2N ote: The eGFR is calculated u sing the CKD-EPI equatio n. The eGFR declines with a ge. eGFR <60 mL/min/1.73 m2 is considered as "decreased". This equation should only be used for patients 18 and older. According to th e National Kidney Foundati on's Kidney Disease Outcome Quality Initiative (KDO QI) classification and 2012 Kidney Disease Improving Global Outcomes (KDIGO) Clinical Practi ce Guideline, the stage of CK D should be categorized bas ed on estimated GFR. Stage Description GFR mL/min/1.73 m21 Normal or h igh GFR >=902 Mildly decrease d GFR 60-893a Mildly to moder ately decreased GFR 4 5-593b Moderately to s everely decreased GFR 3 0-444 Severely decreased GFR 1 5-295 Kidney failure <15 [Au tomated message] The sy stem which generated this result transmitted ref erence range: >=60 mL/min/1.7 3 sq. m. The reference range was not used to interpret th is result as normal/abnormal . eGFR-LIN (test code 108 See_Comment Normal e GFR: >= 60 = 8063) mL/min/1.73 m2N ote: The eGFR is calculated u sing the CKD-EPI equatio n. The eGFR declines with a ge. eGFR <60 mL/min/1.73 m2 is considered as "decreased". This equation should only be used for patients 18 and older. According to th e National Kidney Foundati on's Kidney Disease Outcome Quality Initiative (KDO QI) classification and 2012 Kidney Disease Improving Global Outcomes (KDIGO) Clinical Practi ce Guideline, the stage of CK D should be categorized bas ed on estimated GFR. Stage Description GFR mL/min/1.73 m21 Normal or h igh GFR >=902 Mildly decrease d GFR 60-893a Mildly to moder ately decreased GFR 4 5-593b Moderately to s everely decreased GFR 3 0-444 Severely decreased GFR 1 5-295 Kidney failure <15 [Au tomated message] The sy stem which generated this result transmitted ref erence range: >=60 mL/min/1.7 3 sq. m. The reference range was not used to interpret th is result as normal/abnormal . [facility] [id number] 01:57:20 Test Item Value Reference Range Interpretation Comments Total Protein (test code = 7649) 7.4 g/dL 6.4-8.3 [facility] HospitalAlkaline [id number] 01:57:19 Test Item Value Reference Range Interpretation Comments Alk Phos (test code = 4768) 124 U/L 35-104 H Lab Interpretation (test code = Abnormal 69219-4) [facility] HospitalCalcium [id number] 01:57:17 Test Item Value Reference Range Interpretation Comments Calcium Lvl (test code = 5258) 9.3 mg/dL 8.4-10.2 [facility] HospitalALT2022-01-15 01:57:16 Test Item Value Reference Range Interpretation Comments ALT (test code = 4705) 43 U/L See_Comment H [Aut omated message] The system [employer] h generated this result transmitted ref erence range: <=33. Th e reference range was not used to int erpret this result as normal/abnormal . Lab Interpretation (test Abnormal code = 14091-2) [facility] HospitalAlbumin [id number] 01:57:15 Test Item Value Reference Range Interpretation Comments Albumin Lvl (test code 4.2 See_Comment [Aut omated message] The = 5932) system which ge nerated this result tra nsmitted reference range : 3.5 - 5.2 gm/dL. The refe rence range was not used to interpret this result as normal/abnormal . [facility].Serum [id number] 01:57:14 Test Item Value Reference Range Interpretation Comments Creatinine (test code = 5399) 0.71 mg/dL 0.51-0.95 [facility] HospitalAspartate Aminotransferase 2021-03-09 01:57:13 Test Item Value Reference Range Interpretation Comments AST (test code = 4731) 34 U/L See_Comment H [Aut omated message] The system [facility] generated this result transmitted ref erence range: <=32. Th e reference range was not used to int erpret this result as normal/abnormal . Lab Interpretation (test Abnormal code = 71247-9) [facility] HospitalBUN2022-01-15 01:57:12 Test Item Value Reference Range Interpretation Comments BUN (test code = 5055) 9 mg/dL 6-23 [facility] HospitalElectrolyte [id number] 01:57:11 Test Item Value Reference Range Interpretation Comments Sodium Lvl (test code = 138 See_Comment [Au tomated message] 2324) The system [facility] generated this result transmitted ref erence range: 136 - 14 5 mEq/L. The refe rence range was not u sed to interpret this result as normal/abnor mal. Potassium Lvl (test code 3.5 See_Comment [A utomated message] = 9847) The system [facility] generated this result transmitted ref erence range: 3.5 - 5. 1 mEq/L. The refe rence range was not u sed to interpret this result as normal/abnor mal. Chloride (test code = 102 See_Comment [Auto mated message] 6074) The system [facility] generated this result transmitted ref erence range: 98 - 107 mEq/L. The refe rence range was not u sed to interpret this result as normal/abnor mal. CO2 (test code = 5227) 20 See_Comment L [Aut omated message] The system [facility] generated this result transmitted ref erence range: 22 - 29 mEq/L. The reference r papo was not used to interpret this result as normal/abnor mal. Anion Gap (test code = 16 See_Comment H [Aut omated message] 2078) The system [facility] generated this result transmitted ref erence range: 4 - 14 m Eq/L. The reference r papo was not used to interpret this result as normal/abnor mal. Lab Interpretation (test Abnormal code = 40954-0) [facility] HospitalGlucose [id number] 01:57:10 Test Item Value Reference Range Interpretation Comments Glucose Level (test code 136 mg/dL 70-99 H Eff ective 09/19/15, = 5699) the glucose reference inter vals have been updat ed based on Americ an Diabetes Associ ation guidelines (Standards of Medical Care in Diabetes 2016. Diabetes Care 2 016; 39: S13-S22).Fa sting blood glucose:Normal: 70-99 mg/dLImpa ired fasting glucose (increased risk for diabetes or pre-diabetes): 100-125 mg/dLDiabetes mellitus: >/=12 6 mg/dL Random bl ood glucose:Normal: 70-199 mg/dLNot e: Random glucose >100 mg/dL is associ ated with increased risk for diabetes Lab Interpretation (test Abnormal code = 28337-1) [facility] HospitalBlood [id number] 02:52:49 Test Item Value Reference Range Interpretation Comments Final Report (test No growth code = 8488) Path Review - Culture yield may be Bottle/Isolator affected by sample (test code = 8499) quality, prior treatment, and transportation conditions....The results have been reviewed and electronically signed by Pathologist:Mike Raymond MD, PhD #[id number] MAIA (test code = Short draw may invalidate MAIA) quantitative blood culture results. [facility] HospitalMurine Typhus Antibodies, IgG 2021-03-07 22:09:22 Test Item Value Reference Range Interpretation Comments Murine Typhus <1:64 See_Comment Interpretatio n Table: Antibodies, IgG Negative <1: 64 Present or (test code = 9754) Past 1:64 Recent/Active >1:64 Test Perf ormed by:LabCojaneth [email or web address] [place] [address] [Aut omated message] The sy stem which generated this result transmitted ref erence range: Neg <1:64. The reference range was not u sed to interpret this result as normal/abnormal . [facility] HospitalTMP RPR Path Interpretation 2021-03-03 15:20:51 Test Item Value Reference Interpretation Comments Range TMP RPR Path The Rapid Plasma Interpretation (test Reagin (RPR) code = 199213) assay is K IMBERLY negative. If a MD FELIPE - syphilis 81299Jbikmkpk b y: infection is MICHAELA WANG MD - suspected, 70630Clgstnct please perform a Date/Time: Treponemal 03.03.2021 9:20 AM specific MOLDER FITTING Transcribed screening assay. Date/Time: 03.03.2021 9:20 AM CSTElectronical ly Signed By: PAVEL WANG MD - [id number] on 03.03.2021 9:20 AM C [facility] HospitalRapid Plasma Reagin (RPR) [Syphilis SCREENING]2021-03-03 07:20:14 Test Item Value Reference Range Interpretation Comments RPR Screening (test code = Non Reactive Non Reactive 951364) [facility] HospitalMitochondrial Ab [id number] 16:05:34 Test Item Value Reference Range Interpretation Comments AMA Ab Screen-[place] <0.1 See_Comment Test Per formed by:[place] (test code = [facility] - 36919-5) [facility] [id number] [place], [place] [address]Lab Director: Guevara Cox M.D. Ph.D.; CLI A# [id number] [Automated mess age] The system which ge nerated this result transmit charlene reference range: <0.1 (Ne gative) Units. The refe rence range was not used to interpret this result as normal/abnormal . [facility] HospitalCOVID-19 (SARS-CoV-2)Rvwdbswsuyfl-[id number] 13:19:31 Test Item Value Reference Range Interpretation Comments COVID19 Not Detected Not Detected (SARS-CoV-2) (test code = 19779-2) COVID19 SARS Inpatient Indication (test Admission code = 37358) Covid 19 Comment See Note The cindy S ARS-CoV-2 (test code = [place] [address]) use on the juan jose s [employer] System is a wendy l-time RT-PCR assay in tended for the qualita tive detection of SARS-CoV-2 (COV ID-19) viral RNA in nasopharyngeal swabs from either individuals maria l pected of COVID-19 by their healthcare prov ider or from any individual, inc luding individuals wit hout symptoms or oth er reasons to susp ect COVID-19. A fac t sheet for patie nts provided by the fiction and nonfiction author ([employer], [employer]) can be rev iewed at: https://www.fda .gov/m edia/613269/sam nload. A fact sheet fo r Health Care pro viders is provided by the fiction and nonfiction author ([employer], [employer]) and can be reviewed at: https://www.fda .gov/m edia/647007/sam nload Results must be interpreted wit hin the context of all relevant clinic al and laboratory find ings and should not form the sole basis for a diagnosis or treatment decis ion. Positive result s do not rule out bacterial infec tion or co-infection with other viruses. Negative result s do not preclude SARS-CoV-2 infe ction and must be com bined with clinical observations, p atient history, and/or epidemiological information. Th is assay has been authorized by t FDA for use only un selene Emergency Use Authorization ( EUA) in laboratories that have been CLIA-certified to perform moderate-comple xity and high-comple xity tests. The Microbiology Laboratory at [facility], CLIA Accreditation #[id number] and CAP Accreditation #[id number], verif ied the performance characteristics of this assay. Int ernal controls are us ed to monitor all sta ges of the test proces s. [facility] Cancer KtxamnEdrqyazgclul1966-34-57 10:21:52 Test Item Value Reference Range Interpretation Comments Total Cells (test code 115 = 7642) Neutrophil % (test code 86.0 % 42.0-66.0 H The Neutrophil count = 6491) includes Bands. Lymphocyte % (test code 8.0 % 24.0-44.0 L = 6194) Monocyte % (test code = 1.0 % 2.0-7.0 L 6422) Eosinophil % (test code 2.0 % 1.0-4.0 = 5520) Metamyelocyte % (test 2.0 % See_Comment H The Ny tamyelocyte code = 6399) count includes Myelocytes. [Automated mess age] The system [facility] generated this result transmitted ref erence range: <=0.0. T he reference range was not used to int erpret this result as normal/abnormal . Blasts % (test code = 1.0 % See_Comment H [Auto mated message] 5111) The system [facility] generated this result transmitted ref erence range: <=0.0. T he reference range was not used to int erpret this result as normal/abnormal . Neutrophil Abs (test 3.61 K/uL 1.70-7.30 code = 6492) Lymphocyte Abs (test 0.34 K/uL 1.00-4.80 L code = 6195) Monocyte Abs (test code 0.04 K/uL 0.08-0.70 L = 6423) Eosinophil Abs (test 0.08 K/uL 0.04-0.40 code = 5521) RBC Morph (test code = Normal Normal 6942) Slide Comments (test See Note A PLT: Pl atelet code = 5447) morphology norm al with occasional giant platelets seen Lab Interpretation Abnormal (test code = 07595-2) [facility] Cancer [place].[id number] 10:21:49 Test Item Value Reference Range Interpretation Comments WBC (test code = 8034) 4.2 K/uL 4.0-11.0 RBC (test code = 6932) 3.91 See_Comment L [Aut omated message] The system [facility] generated this result transmitted ref erence range: 4.00 - 5 .50 M/uL. The refer ence range was not u sed to interpret this result as normal/abnor mal. Hgb (test code = 5898) 11.7 See_Comment L [Aut omated message] The system [facility] generated this result transmitted ref erence range: 12.0 - 1 6.0 gm/dL. The refe rence range was not u sed to interpret this result as normal/abnor mal. Hct (test code = 5860) 34.0 % 37.0-47.0 L MCV (test code = 6222) 87 fL 82-98 MCH (test code = 6220) 29.9 pg 27.0-31.0 MCHC (test code = 6221) 34.4 See_Comment [Au tomated message] The system [facility] generated this result transmitted ref erence range: 31.0 - 3 6.0 gm/dL. The refe rence range was not u sed to interpret this result as normal/abnor mal. RDW-SD (test code = 43.4 fL 35.1-46.3 6972) RDW-CV (test code = 13.7 % 12.0-15.5 6971) Platelet count (test 142 K/uL 140-440 code = 6832) MPV (test code = 6282) 11.0 fL 4.0-10.4 H INRBC (test code = 0.0 % See_Comment The INRBC (instrument 5974) NRBC) value ref lects the enumeration of nucleated red b lood cells contained in a 200uL sampleof whole blood analyzed by the instrument. Thi s value maydiffer from the NRBC value repo rted in a manual differential,wh ich is based on a 100 cell differential. [Automated mess age] The system [facility] generated this result transmitted ref erence range: <=0.0. T he reference range was not used to int erpret this result as normal/abnormal . Lab Interpretation Abnormal (test code = 32594-4) [facility] HospitalPartial Thromboplastin Time 2021-03-01 09:43:11 Test Item Value Reference Range Interpretation Comments aPTT (test code = 29.5 See_Comment [Automate d message] The 6773) system which ge nerated this result transmit charlene reference range : 24.7 - 36.8 second(s). The reference range was not used to interpr et this result as gemma l/abnormal. [facility] HospitalPhosphorus [id number] 09:40:45 Test Item Value Reference Range Interpretation Comments Phosphorus (test code = 6817) 2.3 mg/dL 2.5-4.5 L Lab Interpretation (test code = Abnormal 79802-3) [facility] HospitalMagnesium [id number] 09:40:38 Test Item Value Reference Range Interpretation Comments Magnesium (test code = 6359) 1.6 mg/dL 1.6-2.6 [facility] HospitalProthrombin [id number] 09:38:39 Test Item Value Reference Range Interpretation Comments PT (test code = 6746) 14.6 See_Comment H [Auto mated message] The system whic h generated this result transmitted ref erence range: 11.5 - 1 3.9 second(s). The reference range was not used to int erpret this result as normal/abnormal . INR (test code = 5973) 1.24 0.90-1.10 H Lab Interpretation (test Abnormal code = 64167-0) [facility] HospitalLiver/Kidney Microsome Type 1 Ab 2021-02-28 01:05:31 Test Item Value Reference Range Interpretation Comments Claire/Kid Micro 1-Chase <5.0 See_Comment Test P erformed by:[place] (test code = 28710-3) [facility] [employer] [address] [employer] [place], [place] [address]Uqq Director: Guevara Cox M.D. Ph.D.; CLI A# [id number] [Aut omated message] The sy stem which generated this result transmitted ref erence range: <=20.0 ( Negative) Units. The refe rence range was not used to interpret this result as normal/abnormal . [facility] HospitalUrine [id number] 22:02:32 Test Item Value Reference Range Interpretation Comments Final Report (test code <10,000 cfu/ml Gram A = 8488) Negative Rods Path Review - Urine The results have been A (test code = 8483) reviewed and electronically signed by Pathologist:Gardenia Pedroza MD, PhD #[id number] Lab Interpretation Abnormal (test code = 55445-4) [facility] HospitalHepatitis E IgG [id number] 21:56:03 Test Item Value Reference Range Interpretation Comments HEV IgG Negative Negative -----ADDITIONAL Ab-[place] INFORMATION---- Thi (test code = s test was pretty jamesna and its 21386-4) performance characteristics determined by [facility] in a man ner consistent with CLIArequir ements. This test has not been cl eared or approved bythe .S. Food and Drug Administration. Test Performed by:[facility] [employer] [address] [place], [place] [address]Ymx Direct or: Jonel Cox M.D. Ph. D.; CLIA# [id number] [facility] HospitalAntinuclear Antibody (DICK) HEp-2 Substrate, [id number] 19:20:23 Test Item Value Reference Interpretation Comments Range DICK HEp-2 Substrate Positive See_Comment A ------- ADD (test code = 1:640 ITIONAL 28251-4) INFORMATION---- -------- -------Method: Immunofluoresce nce using HEp-2 janine lular substrate. [Aut omated message] The sy stem which generated this result transmit charlene reference range : <1:80 (Negative). The reference range was not used to interpr et this result as normal/abnormal . DICK Titer 1 (test 1:640 code = 57067-8) DICK Pattern 1 (test Speckled Test Pe rformed by:[place] code = 19835-2) [facility] Labor atories - [facility] [employer] [address] [facility] [address] [place], [place] [address]Fki Direct or: Jonel tim M.D. Ph.D.; CLIA# [id number] Lab Interpretation Abnormal (test code = 39653-4) [facility] HospitalMayo Miscellaneous [id number] 17:59:01 Test Item Value Reference Range Interpretation Comments [facility] Test See Footnote Test Result Fl ag Unit Result (test RefValue------- -------- code = 6385) -------- -------- ---Smooth Muscl e Ab Screen, S Nega tive Negative Negati ve: No further testing will be performed ----GIO TIONAL INFORMATION---- -------- ------- This te st was developed and i ts performance characteristics determined by [facility] in a man ner consistent with CLIA requirements. T his test has not been cl eared or approved by the U.S. Food and Drug Administration. Test Performed by: [facility] [address] [place] [address] Lab Direc tor: Jonel tim M.D. Ph.D.; CLIA# 24 [id number] MAIA (test code Smooth Muscle = MAIA) Antibody Screen, Serum [facility] HospitalTissue Transglutaminase Ab IgA, IgG 2021-02-27 17:25:31 Test Item Value Reference Range Interpretation Comments TTG IgA-[place] (test <1.2 See_Comment [Automat ed message] The code = 91557-2) system which generated this result transmit charlene reference range: <4.0 (Ne gative) unit/mL. The re ference range was not used to interpret this result as normal/abnormal . TTG IgG-[place] (test 1.2 See_Comment Test Per formed by:[place] code = 69885-1) [facility] [employer] [address] [place], [place] [address]Lab Director: Guevara Cox M.D. Ph.D.; CLI A# [id number] [Automated mess age] The system which ge nerated this result transmit charlene reference range: <6.0 (Ne gative) unit/mL. The re ference range was not used to interpret this result as normal/abnormal . [facility] HospitalCeruloplasmin [id number] 16:10:28 Test Item Value Reference Range Interpretation Comments Ceruloplasmin-[place] 31.8 mg/dL 20.0-51.0 Test Per formed by:[place] (test code = [facility] - 2064-4) [address] [address]Lab Director: Guevara Cox M.D. Ph. D.; CLIA# [id number] [facility] HospitalHepatitis C Virus RNA Detect/Quant 2021-02-27 01:45:27 Test Item Value Reference Range Interpretation Comments HepC RNA PCR Undetected Undetected IU/mL Result in l og IU/mL is Qnt-[place] (test Undetected. code = 71169-9) -------ADDITIO NAL INFORMATION---- ----The quantif ication range of this a ssay is 15 to 100,000,000I U/mL (1.18 log to 8.00 log IU/mL). Testing was per formedusing the cindy HCV t est ([employer]with the [employer] Kunerango0 System. Test Pe rformed by:[place] [address]Lab Director: Guevara Cox M.D. Ph. D.; CLIA# [id number] [facility] Cancer LimestoneHSV 1+2 Quant, [id number] 22:59:35 Test Item Value Reference Range Interpretation Comments HSV1 Not Detected Not Detected Plasma-Natasha copies/mL cor (test code = 5829) HSV2 Not Detected Not Detected TESTING PERFORM ED AT LOW VOLUME Plasma-Natasha copies/mL ON PLASMA SPECI MEN FOR HSV 1 & cor (test 2,MAY AFFECT RE SULTS. Assay code = Range for HSV 1 is 37 copies/mL 5836) to 1.00E+08 music copyist ies/mLAssay Range for HSV 2 is 73 copies/mL to 1.00E+08 music copyist ies/mLThe limit of quantitation (LOQ) is 37 (HSV 1) and 73 (HSV 2)copies/mL. HS V DNA detected below the LOQ w ill be reported asDetected:<37 copies/mL (HSV 1) or Detected: <73 copies/mL (HSV 2).This te st was developed and its perform ance characteristics determined by [employer]. It has not been cleared or approvedby the U.S. Food and D rug Administration. Results should be used inconju nction with clinical findin gs, and should not form the so lebasis for a diagnosis or tr eatment decision. Performe d At:[facility] [employer] [address] [employer] [address] [place] [address]Savrynntpf Director: Jorge A Urrutia Ph.D., BCL D (ABB)CLIA#: [id number] e: [facility] HospitalHBV DNA [id number] 22:25:38 Test Item Value Reference Range Interpretation Comments HBV DNA [facility] Undetected Undetected IU/mL Result in log IU/mL is (test code = Undetected. 02034-1) ----ADDITIO NAL INFORMATION---- ----The quantif ication range of this a ssay is 10 to1,000,000,000 IU/mL (1.00 log to 9. 00 log IU/mL). Testing was performed using the cindy HBV test ([employer] with the cindy 6800 System. Test Pe rformed by:[address] [address]Lab Director: Guevara Cox M.D. Ph. D.; CLIA# [id number] [facility] HospitalHepatitis E IgM [id number] 22:10:26 Test Item Value Reference Range Interpretation Comments HEV IgM Ab Negative Negative If clinical maria l picion [facility] (test persists, wells bmit new code = 73827-3) specimen for retesting in 1 to 2 weeks. ----ADDITIONA L INFORMATION---- --This test was developed and its perform ance characteristics determined by [facility] in a manner consistent with CLIArequirement s. This test has not been cl eared or approved bythe U.S. Food and Drug Administra tion. Test Performed by:[facility] [address], [place], [place] [address]Gsu Direct or: Jonel Cox M.D. Ph.D.; CLIA# [id number] [facility] HospitalHep A IgM [id number] 21:29:57 Test Item Value Reference Range Interpretation Comments Hep A IgM-[place] Negative Negative Result does n ot exclude the (test code = possibility of exposure 10801-6) tohepatitis A v irus. Antibody level during early infectionstage may be below the limit of de tection of the assay. Test Performed by:[facility] [address] [place], [place] [address]Bmc Director: Guevara Cox M.D. Ph.D.; CLI A# [id number] [facility] HospitalHepatitis A Antibody [id number] 21:29:56 Test Item Value Reference Range Interpretation Comments Hepatitis A IgG (test Negative Result indicates no past code = 10121-7) exposure or immunity to hepatitis Ainfe ction. ----REFER ENCE VALUE --------- -------Unvaccin ated: NegativeVaccina charlene: Positive Test P erformed by:[facility] [address] [place], [place] [address]Lab Director: Guevara Cox M.D. Ph. D.; CLIA# [id number] [facility] HospitalCMV Quant [id number] 21:18:28 Test Item Value Reference Range Interpretation Comments CMV DNA PCR Target Not Target Not Normal Range: T arget (test code = Detected Detected IU/mL Not Detected. Reportable 5214) Range: 34.5 to 4,000,000 CMV D NA IU/mL; values b etween 4,000,000 to 10 ,000,000 CMV DNA IU/mL m ay be reported but th terry should be inter preted with caution as this range of the as say has not been project intern ally verified. The c linical significance of CMV levels at 4,000 ,000 IU/ml verses th ose above 4,000,000 is unclear. Result s are expressed in CM V DNA IU/ml plasma. Methodology: Th e extraction and quantitation of cytomegalovirus (CMV) DNA in human pl asma is performed using the CINDY Kunerango0 Syst em. Amplification o f viral DNA is achieved using polymerase franklyn n reaction (PCR). Internal contro ls are included to ass ess for possible amplif ication inhibitors. If inhibition is d etected, the specimen is tested again and if in hibition is confirmed th e specimen is res ulted as "Invalid". When an "Invalid" resul ts occurs, it is recommended to wait a minimum of 7-10 days before submitti ng a new specimen for te sting. This is an FDA- approved assay and its performance characteristics were verified by the microbiology la boratory at the [facility]. Results must be interpr eted within the cont ext of all relevant cl inical and laboratory findings. [facility] HospitalAlpha 1 [id number] 21:16:20 Test Item Value Reference Range Interpretation Comments A-1-AT-[place] (test 143 mg/dL 100-190 Test Perf ormed by:[place] code = 6771-0) [facility] [employer] [address] [employer] [address] [place], [place] [address]Rpf Director: Guevara Cox M.D. Ph. D.; CLIA# [id number] [facility] HospitalHepatitis B Surface Antibody 2021-02-26 18:01:46 Test Item Value Reference Range Interpretation Comments Hep Bs Ab-[place] Negative Patient is pr esumed to be (test code = not immune to i nfection 77651-3) with HBV. ----REFEREN CE VALUE -----Unvaccinat ed: NegativeVaccina charlene: Positive Hep Bs Ab [facility] <5.0 mIU/mL --------- REFERE (test code = NCE 5193-8) VALUE -----Unvaccinat ed: <5.0Vaccinated: >=12.0 Test Performed by:[facility] [employer] [address] [employer] [place], [place] [address]Sdq Director: Guevara Cox M.D. Ph. D.; CLIA# [id number] [facility] HospitalHepineville community hospitaltis B IgM Core Ab (CONFIRM ACUTE INFECTION ONLY) (anti-HBc IgM; HBcAb IgM)2021-02-26 17:48:19 Test Item Value Reference Range Interpretation Comments Hep B Core IgM-[place] Negative Negative Test Pe rformed by:[place] (test code = [facility] - 15617-2) [facility] [employer] [address] [employer] [place] [id number] Director: Guevara Cox M.D. Ph. D.; CLIA# [id number] [facility] HospitalHekaiser [facility] B Core Total Antibody 2021-02-26 17:47:25 Test Item Value Reference Range Interpretation Comments HBc Total Ab-[place] Negative Negative Test Perf ormed by:[place] (test code = [facility] - 98732-4) [facility] [employer] [address] [employer] [place], [place] [address]Oqv Director: Guevara Cox M.D. Ph. D.; CLIA# [id number] [facility] HospitalHekaiser [facility] B Surface Ag w/Confirm 2021-02-26 17:43:23 Test Item Value Reference Range Interpretation Comments Hep Bs Ag-[place] Negative Negative Test Perform ed by:[place] (test code = [facility] - 5196-1) [facility] [employer] [address] [employer] [place], [place] [address]Ess Director: Guevara Cox M.D. Ph. D.; CLIA# [id number] [facility] HospitalPersouthern kentucky rehabilitation hospitalal [facility] Review 2021-02-26 17:41:09 Test Item Value Reference Range Interpretation Comments Peripheral Smear (test code = 4273) KASHHIRENZO [facility] HospitalGeneral Laboratory Add-On Test 2021-02-26 17:00:14 Test Item Value Reference Range Interpretation Comments Ordered (test code = 6568) Test Added Test Needed (test code = 7604) SANTIAGO [facility] HospitalTMP Interpretation Antibody Screen [id number] 15:22:43 Test Item Value Reference Range Interpretation Comments TMP Auto Neg At the present ABSC Interp time, patient (test code = plasma shows no MYNOR WANG MD 7535) evidence of RBC - 63[address]Guazk charlene by: alloantibodies. MICHAELA ORTIZ MD - [address]Spdkfmri Date/Time: 9:22 AM MOLDER FITTING Tra nscribed Date/Time: 9:22 AM CSTElectronical ly Signed By: PAVEL WANG MD - 1477 8 on 02.26.2021 9:22 AM C [facility] HospitalHSV Serology Path [id number] 15:16:20HSV 1/2 PRNegative IgG results for HSV-1 and HSV-2. Indicates no previous HSV infection.If primary infection is suspected, repeat testing should be performed in 8-14 days.Reviewed and Electronically signed by Pathologist:Gardenia Pedroza MD, PhD #[id number] [facility] CENTERUnHouston Methodist Willowbrook HospitalEpstein Delgadillo Virus Panel Path [id number] 15:16:19EBV Panel PREBV serology suggests past infection. Interpret results with caution ifpatient is receiving IVIG.Reviewed and Electronically signed by Pathologist:Gardenia Pedroza MD, PhD #[id number] [facility] CENTERUnHouston Methodist Willowbrook HospitalCMV Ab IgG+IgM Path [id number] 15:16:18 CMV Panel PRNo evidence of previous CMV infection. If primary infection is suspected,repeat testing in 8-14 days.Reviewed and Electronically signed by Pathologist:Gardenia Pedroza MD, PhD #[id number] [facility] CENTERUnHouston Methodist [facility] Hospital HIV 1/2 Ag&Ab Path [id number] 15:15:29 Test Item Value Reference Range Interpretation Comments HIV 1/2 Ag&Ab Negative for HIV-1 Interp (test antigen and code = 9394) HIV-1/HIV-2 KIMBERL Y antibodies. Lachelle WANG MD - laboratory 401[address]Pidekzll b y: evidence of HIV MICHAELA ORTIZ [place] - [place] [address]Mpfecfbn acute HIV Date/Time: infection is 9:15 AM MOLDER FITTING suspected, Transcribed Manuel e/Time: consider testing 02.26.2021 9:15 AM for HIV-1 RNA. CSTElectronic ally Signed By: PAVEL WANG MD - 1477 8 on 02.26.2021 9:15 AM C [facility] HospitalAntibody [id number] 11:38:03 Test Item Value Reference Range Interpretation Comments ABSC. (test code = 890-4) Negative ABSC [facility] HospitalABORh2022-01-04 11:38:02 Test Item Value Reference Range Interpretation Comments ABORh. (test code = 882-1) O POS [facility] HospitalClot Expiration [id number] 11:37:40 Test Item Value Reference Range Interpretation Comments T & S Expiration (test code = 03/01/2021 5318) [facility] HospitalGlucose, [id number] 07:24:18 Test Item Value Reference Range Interpretation Comments Glucose Random (test 93 mg/dL 70-199 Effecti ve 09/19/15, the code = 9360) glucose referen ce intervals have been updated based o n [place] [employer] natasha delines (Standards of M edical Care in Diabete s 2016. Diabetes Care 2 016; 39: S13-S22).Fastin g blood glucose:Normal: 70-99 mg/dLImpaired f asting glucose (increa sed risk for diabetes or pre-diabetes): 100-125 mg/dLDiabetes m ellitus: >/=126 mg/dL Ra ndom blood glucose:N ormal: 70-199 mg/dLNot e: Random glucose >100 mg /dL is associated with increased risk for diabetes [facility] HospitalCarbon Dioxide [id number] 07:24:12 Test Item Value Reference Range Interpretation Comments CO2 (test code = 5227) 20 See_Comment L [Aut omated message] The system whic h generated this result transmitted ref erence range: 22 - 29 mEq/L. The reference r papo was not used to interpret this result as normal/abnor mal. Lab Interpretation (test Abnormal code = 39086-0) [facility] HospitalAnion [id number] 07:24:06 Test Item Value Reference Range Interpretation Comments Anion Gap (test code 12 See_Comment [Autom ated message] The = 9355) system which ge nerated this result transmit charlene reference range : 4 - 14 mEq/L. The refe rence range was not used to interpret this result as normal/abnormal . [facility] HospitalChloride Xejpj5680-03-25 07:24:05 Test Item Value Reference Range Interpretation Comments Chloride (test code = 106 See_Comment [Auto mated message] The 1110) system which ge nerated this result tra nsmitted reference range : 98 - 107 mEq/L. The refe rence range was not u sed to interpret this result as normal/abnormal . [facility] HospitalPotassium [id number] 07:24:04 Test Item Value Reference Range Interpretation Comments Potassium Lvl (test 3.5 See_Comment [Automa charlene message] The code = 6854) system which ge nerated this result tra nsmitted reference range : 3.5 - 5.1 mEq/L. The reference range was not u sed to interpret this result as normal/abnormal . [facility] Brownsvilleodium [id number] 07:24:03 Test Item Value Reference Range Interpretation Comments Sodium Lvl (test code 138 See_Comment [Auto mated message] The = 6021) system which ge nerated this result tra nsmitted reference range : 136 - 145 mEq/L. The refe rence range was not used to interpret this result as normal/abnormal . [facility] HospitalHIV-1/2 Antigen and Antibodies, Fourth [id number] 02:20:46 Test Item Value Reference Range Interpretation Comments HIV 1/2 Ag & Ab, Non Reactive Non Reactive Performed a t: 4th Gen (test code [place] [facility] = 7555) [address] [place], [place] [address] [facility] HospitalHepatitis C Virus [id number] 01:27:57 Test Item Value Reference Range Interpretation Comments HCVAb. (test Non Reactive Non Reactive Antibody detect ion in the code = 5762) immunocompromis ed and immunosuppresse d population may be delayed or absent entirely. There fore serial testing, correl ation with other clinical findings, and supplementa l testing (if available) should be taken into cons ideration when interpreti ng the results.Perform ed at:[facility] [address] [place], [place] [address] [facility] HospitalCMV Ab IgG+[id number] 21:53:42 Test Item Value Reference Range Interpretation Comments CMV IgM Int (test code = 5219) Negative Negative CMV IgG Int (test code = 5217) Negative Negative [facility]EBV Antibody [id number] 21:47:44 Test Item Value Reference Range Interpretation Comments VCA-M Int (test code = 7972) Negative Negative VCA-G Int (test code = 7970) Positive Negative A EBNA Int (test code = 5480) Positive Negative A Lab Interpretation (test code = Abnormal 89483-4) [facility] HospitalHSV 1+2 [id number] 21:43:05 Test Item Value Reference Range Interpretation Comments HSV-1 IgG Interpretation (test code Negative Negative = 9755) HSV-2 IgG Interpretation (test code Negative Negative = 9756) [facility] HospitalIgM2022-01-03 18:06:33 Test Item Value Reference Range Interpretation Comments IgM (test code = 6023) 62 mg/dL 35-242 [facility]IgG2022-01-03 18:06:32 Test Item Value Reference Range Interpretation Comments IgG (test code = 6001) 1143 mg/dL 610-1616 [facility]IgA2022-01-03 18:06:31 Test Item Value Reference Range Interpretation Comments IgA (test code = 5992) 372 mg/dL 85-499 [facility] HospitalMD Darnell-Delgadillo Virus Quantitative PCR Collection, [id number] 16:29:10 Test Item Value Reference Range Interpretation Comments Molecular Diagnostics (Received) (test Yes code = 8400) [facility] HospitalTransferrin with [id number] 06:06:36 Test Item Value Reference Range Interpretation Comments Transferrin (test code = 153 mg/dL 200-360 L 7653) TIBC (test code = 7532) 214 See_Comment L [Au tomated message] The system [facility] generated this result transmit charlene reference range : 250 - 450 mcg/dL. T he reference range was not used to interpret this result as normal/abnormal . Lab Interpretation (test Abnormal code = 54286-2) [facility] HospitalIron [id number] 06:06:35 Test Item Value Reference Range Interpretation Comments Iron (test code = 6066) 30 See_Comment L [Au tomated message] The system [facility] generated this result transmitted ref erence range: 37 - 145 mcg/dL. The ref erence range was not u sed to interpret this result as normal/abnor mal. Lab Interpretation (test Abnormal code = 77343-5) [facility] HospitalHepatitis B Surface [id number] 06:03:14 Test Item Value Reference Range Interpretation Comments HBsAg Received (test See Note HBsAg w as sent to a code = 39524) reference lab for testing. Expect results on Hepatitis B Surface Antigen w/ Conf irm within 96 hours . [facility] HospitalHepatitis B Total Ig Core Ab (SCREENING) (anti-HBc total Ig; HBcAb total Ig)2021-02-25 06:03:06 Test Item Value Reference Range Interpretation Comments HBcAb Received (test See Note HBcAb w as sent to a code = 93786) reference lab for testing. Expect results on Hepatitis B Core Total Ab within 96 hours. [facility] HospitalTSH2022-01-03 05:45:00 Test Item Value Reference Range Interpretation Comments TSH (test code = 2.90 See_Comment [Automated message] The 7578) system which ge nerated this result transmit charlene reference range : 0.27 - 4.20 mcunit/mL. The reference range was not used to interpr et this result as gemma l/abnormal. [facility] HospitalFerritin [id number] 05:44:57 Test Item Value Reference Range Interpretation Comments Ferritin Lvl (test code = 5608) 715 ng/mL 13-150 H Lab Interpretation (test code = Abnormal 98912-6) [facility] HospitalGGT2022-01-03 05:44:52 Test Item Value Reference Range Interpretation Comments GGT (test code = 5647) 32 U/L 5-36 [facility] HospitalUrinalysis with Microscopic 2021-02-25 05:23:13 Test Item Value Reference Interpretation Comments Range UA WBC (test code = 90 See_Comment H [Automa charlene 7904) message] The system which generated this result transmitted reference range : 0 - 2 /HPF. The reference range was not used to interpret this result as normal/abnormal . UA RBC (test code = 17 See_Comment H [Automa charlene 7891) message] The system which generated this result transmitted reference range : 0 - 2 /HPF. The reference range was not used to interpret this result as normal/abnormal . UA Mucous (test code TRACE Not Seen-Trace = 7887) /HPF UA Bacteria (test OCC NOT SEEN /HPF code = 7870) UA Squam Epi (test OCC None-Occasiona code = 7896) l /HPF MAIA (test code = Some reporting MAIA) parameters within the Urinalysis test have changed due to the implementation of new instrumentation in the [facility], allowing greater sensitivity of measurement. Urinalysis results reported by the [facility] using existing instrumentation, as well as Urinalysis testing performed manually or by backup methodology at the [facility] will remain relatively unchanged. New reporting parameters and units will now be reported for all campuses. Lab Interpretation Abnormal (test code = 03871-8) [facility] HospitalUrinalysis w/Microscopic if [id number] 05:19:36 Test Item Value Reference Range Interpretation Comments UA Color (test code = 7877) Yellow Straw-Yellow UA Appear (test code = 7868) Hazy Clear A UA Glucose (test code = 7881) NEG NEG mg/dL UA Bili (test code = 7871) NEG NEG UA Ketones (test code = 7884) NEG NEG mg/dL UA Spec Grav (test code = 7894) 1.016 1.003-1.035 UA Blood (test code = 7872) Small NEG A UA pH (test code = 7909) 6.0 5.0-9.0 UA Protein (test code = 7890) 100 mg/dL NEG A UA Urobilinogen (test code = 7903) NEG NEG UA Nitrite (test code = 7888) NEG NEG UA Leuk Est (test code = 7886) Small NEG A Lab Interpretation (test code = Abnormal 86247-0) [facility] HospitalRespiratory Viral Panel + COVID-19, Nasopharyngeal [id number] 04:31:28 Test Item Value Reference Range Interpretation Comments Adenovirus (test code = 4748) Not Detected Not Detected Coronavirus 229E (test code = Not Detected Not Detected 5349) Coronavirus HKU1 (test code = Not Detected Not Detected 5350) Coronavirus NL63 (test code = Not Detected Not Detected 5351) Coronavirus OC43 (test code = Not Detected Not Detected 5352) COVID19 (SARS-CoV-2) (test code Not Detected Not Detected = 95145-4) Human Metapneumovirus (test code Not Detected Not Detected = 6401) Human Rhinovirus/Enterovirus Not Detected Not Detected (test code = 7212) Influenza A (test code = 5618) Not Detected Not Detected Influenza A H1 (test code = Not Detected Not Detected 5619) Influenza A H1 2009 (test code = Not Detected Not Detected 5620) Influenza A H3 (test code = Not Detected Not Detected 5621) Influenza B (test code = 5622) Not Detected Not Detected Parainfluenza 1 (test code = Not Detected Not Detected 6779) Parainfluenza 2 (test code = Not Detected Not Detected 6780) Parainfluenza 3 (test code = Not Detected Not Detected 6781) Parainfluenza 4 (test code = Not Detected Not Detected 6782) Respiratory Syncytial Virus Not Detected Not Detected (test code = 7157) Bordetella Parapertussis (test Not Detected Not Detected code = 48331) Bordetella pertussis (test code Not Detected Not Detected = 4854) Chlamydiophila pneumoniae (test Not Detected Not Detected code = 5139) Mycoplasma pneumoniae (test code Not Detected Not Detected = 6203) [facility] HospitalCRP (C-reactive protein)2021-02-25 03:44:15 Test Item Value Reference Range Interpretation Comments CRP (test code = 72.18 mg/L Reference r anges for HS 5235) CRP assay are a s follows: Reference range s when used to assess cardi ac risk: <1.00 mg/L Low cardiovascular risk 1.00-3.00 mg/L Average cardiovascular risk >3.00 mg/L High cardi ovascular risk.Reference ranges when used to assess inflammatory re sponses: Less than or eq ual to 10.00 mg/L. [facility] HospitalLDH2022-01-03 03:32:47 Test Item Value Reference Range Interpretation Comments LDH (test code = 6111) 474 U/L 135-214 H Speci men is hemolyzed. Resu lts may be falsely elevated. Repea t test if needed.Resul ts greater than 16 51 U/L may not be reli able due to matrix e ffect with extended dilution as it exceeds the fiction and nonfiction author s recommended l imit. Caution should be exercised when interpreting wells ch values and done in conjunction wit clinical contex t. Lab Interpretation (test Abnormal code = 74348-7) [facility] HospitalProcalcitonin (PCT)2021-02-25 03:32:35 Test Item Value Reference Range Interpretation Comments Procalcitonin (test 0.17 ng/mL See_Comment H Procalci tonin > 2.00 code = 9379) ng/mL: Procalci tonin levels above 2. 00 ng/mL are highl y suggestive of a high risk for system atic bacterial infec tion/ severe sepsis a nd/or septic shock. Procalcitonin < 0.50 ng/mL: Procalci tonin levels below 0. 50 ng/mL are at lo w risk for progression to severe sepsis a nd/ or septic shock. Procalcitonin ( ProCT) between 0.15 an d 2.0 ng/mL do not ex clude infection, lay use localized infec tions (without system ic signs) may be associated with such low levels. Res ults greater than 40 0 ng/mL may not b e reliable due to the matrix effect w ith extended diluti on as it exceeds the fiction and nonfiction author's recommended gamez it. Caution should be exercised when interpreting wells ch values and done in conjunction wit h clinical contex t. [Automated mess age] The system [facility] generated this result transmitted ref erence range: <=0.08. The reference range was not used to int erpret this result as normal/abnormal . Lab Interpretation Abnormal (test code = 37315-6) [facility] VBG+[id number] 02:56:16 Test Item Value Reference Range Interpretation Comments POC VB pH (test 7.40 7.31-7.41 code = 6719) POC VB pCO2 (test 42 See_Comment [Automate d message] code = 6718) The system [facility] generated this result transmitted ref erence range: 41 - 51 mmHg. The reference r papo was not used to interpret this result as normal/abnor mal. POC VB pO2 (test 31 mmHg code = 6720) POC VB TCO2 (test 27 See_Comment [Automate d message] code = 2026-) The system wh ich generated this result transmitted ref erence range: 24 - 29 mEq/L. The reference r papo was not used to interpret this result as normal/abnor mal. POC VB Bicarb 26 mmol/L 23-28 (test code = 77579-5) POC VB Base Ex 1 mmol/L -2-3 (test code = 1927-3) POC VB O2 Sat 59 % (test code = 2711-0) POC VB LAC (test 1.0 mmol/L 0.9-1.7 Method desc ription: code = 2519-7) The i-STAT is an analyzer used f or in vitro quantific ation of various anal ytes in whole blood. Th e device uses a s dada disposable cart ridge which contains microfabricated sensors, a olu bration solution, fluid ics system, and a w aste chamber. Each t est cartridge conta ins chemically sens itive biosensors on a silicon chip th at are configured to p erform specific tests. The microfabricated sensors measure analyte concent ration by an electroch emical assay. POC FiO2 (test 0 code = 98873-0) POC Sample Type Venous (test code = 6690) POC Clean Dev Yes (test code = 6672) Performing Lab [facility] (test code = [facility] [address]) Clinical Lab, [address] [place] [address], [facility] [place] [address]; Offbearer: Birgit Mendoza MD [place] [id number] 13:04:02 Test Item Value Reference Range Interpretation Comments POC U hCG (test Negative Negative Very dilute urine code = 8552) specimens may c ause false negative results. Sugges t repeat in 48 ho urs with a first mo rning voided urine or request quantit ative serum beta HCG test. Method descript ion: The ICON 20 hCG Serum/Urine meredith t employs a solid phase chromatographic immunoassay moise hnology to selectively detect elevated levels of hCG in urine with a high degree of sensi tivity. POC U hCG Cont Valid (test code = 6710) Performing Lab [facility] (test code = [facility] [place] [address]) Clinical Lab, [address] [facility], [place], [place] [address]; Offbearer: Birgit Mendoza MD [facility] Chem 8 without Hemoglobin and [id number] 10:21:08 Test Item Value Reference Range Interpretation Comments POC NA (test code = 142 See_Comment [Automa charlene message] 53280-9) The system [facility] generated this result transmitted ref erence range: 138 - 14 6 mEq/L. The refe rence range was not u sed to interpret this result as normal/abnor mal. POC K (test code = 3.1 See_Comment L Method de scription: 77682-3) The i-STAT is a n analyzer used f or in vitro quantific ation of various anal ytes in whole blood. The device uses a s dada disposable cart ridge which contains microfabricated sensors, a calibration sahara [employer], fluidics system , and a waste chamber . Each test cartridge contains chemic ally sensitive biose nsors on a Mumumío ip that are config ured to perform spec ific tests. The microfabricated sensors measure analyte concent ration by an electroch emical assay. [Automat ed message] The sy stem which generated this result transmit charlene reference range : 3.5 - 4.9 mEq/L. Th e reference range was not used to int erpret this result as normal/abnormal . POC CL (test code = 106 See_Comment [Automa charlene message] 9459-3) The system [facility] generated this result transmitted ref erence range: 98 - 109 mEq/L. The refe rence range was not u sed to interpret this result as normal/abnor mal. POC VTCO2 (test code 24 See_Comment [Autom ated message] = 2026-02) The system [facility] generated this result transmitted ref erence range: 24 - 29 mEq/L. The reference r papo was not used to interpret this result as normal/abnor mal. POC Anion Gap (test 16 mmol/L 10-20 code = 26295) POC BUN (test code = 12 mg/dL 8- 6299-2) POC Crea (test code 0.6 mg/dL 0.6-1.3 Medicati ons, = 38016-7) especially hydroxyurea or supplements, wells ch as ascorbate, can interfere with test results causing a falsely and significantly h igher result than exp ected. If a problem is suspected with a patient's resul t, a sample should b e sent to the laborato ry for confirmatory te sting. Method descript ion: The i-STAT is a n analyzer used f or in vitro quantific ation of various anal ytes in whole blood. The device uses a s [employer] disposable cart ridge which contains microfabricated sensors, a calibration sahara [employer], fluidics system , and a waste chamber . Each test cartridge contains chemic ally sensitive biose nsors on a Mumumío ip that are config ured to perform spec ific tests. The microfabricated sensors measure analyte concent ration by an electroch emical assay. POC eGFR-AA (test 135 See_Comment Normal eGF R >= 60 code = 61011-0) mL/min/1.73 m2 The eGFR is calcula charlene using the CKD-E PI equation. The e GFR declines with a ge. eGFR <60 mL/min /1.73 m2 is considere d as "decreased" Thi s equation should only be used for pat ients 18 and older. According to e National Kidney Foundation's Ki dney Disease Outcome Quality Initiat phillip (KDOQI) classification and 2012 Kidney Dis ease Improving Globa l Outcomes (KDIGO ) Clinical Practi ce Guideline, the stage of CKD should b e categorized bas ed on estimated GFR. Stage Description GFR mL/min/1.73 m21 Kidney damage w ith normal or high GFR >=902 Kidney da mage with mild decre ase in GFR 60-893a Mil d to moderate decrea se in GFR 45-593b Mod erate to severe decre ase in GFR 30-444 Elvira re decrease in GFR 15-295 Kidney f ailure <15 (or dialysi s) [Automated mess age] The system [facility] generated this result transmitted ref erence range: >=60 mL/min/1.73 m2. The reference range was not used to int erpret this result as normal/abnormal . POC eGFR-LIN (test 116 See_Comment Normal eG FR >= 60 code = 78888-1) mL/min/1.73 m2 The eGFR is calcula charlene using the CKD-E PI equation. The e GFR declines with a ge. eGFR <60 mL/min /1.73 m2 is considere d as "decreased" Thi s equation should only be used for pat ients 18 and older. According to th e National Kidney Foundation's Ki dney Disease Outcome Quality Initiat phillip (KDOQI) classification and 2012 Kidney Dis ease Improving Globa l Outcomes (KDIGO ) Clinical Practi ce Guideline, the stage of CKD should b e categorized bas ed on estimated GFR. Stage Description GFR mL/min/1.73 m21 Kidney damage w ith normal or high GFR >=902 Kidney da mage with mild decre ase in GFR 60-893a Mil d to moderate decrea se in GFR 45-593b Mod erate to severe decre ase in GFR 30-444 Elvira re decrease in GFR 15-295 Kidney f ailure <15 (or dialysi s) [Automated mess age] The system [facility] generated this result transmitted ref erence range: >=60 mL/min/1.73 m2. The reference range was not used to int erpret this result as normal/abnormal . POC Glucose (test 133 mg/dL 70-99 H code = 84160-8) POC Ion Ca (test 1.20 mmol/L 1.12-1.32 code = 41778-9) POC Sample Type Venous (test code = 6690) POC Clean Dev (test Yes code = 6672) Performing Lab (test [facility] code = 67992) [facility] Cli nical Lab, [facility], [place] [address]; Offbearer: Birgit Mendoza MD Lab Interpretation Abnormal (test code = 99892-6) [facility] [place]estoneInfluenza A/B + COVID-19 Asymptomatic- [id number] 08:39:11 Test Item Value Reference Range Interpretation Comments COVID19 Not Detected Not Detected (SARS-CoV-2) (test code = 47136-5) Influenza A (test Not Detected Not Detected code = 08396-7) Influenza B (test Not Detected Not Detected code = 62346-7) COVID19 SARS Inpatient Indication (test Admission code = 42084) Inf AB+Cov19 See Note The cindy SARS- CoV-2 Comment (test & Influenza A/ B code = 58542) nucleic acid t est for use on the juan jose s [employer] System is a [employer] real-time RT-PC R assay intended for the simultaneou s, qualitative det ection and differentia l of SARS-CoV-2 (COVID-19), inf luenza A, and influenz a B viral RNA in nasopharyngeal swabs in transport me javier from patients suspected of arrieta ving a respiratory inf ection with one of the se viruses or poss ibly exposure to COV ID-19 by a healthcare provider. Resul ts must be interpr eted within the cont ext of all relevant cl inical and laboratory findings and sh ould not form the so le basis for a javier gnosis or treatment decision. A fac t sheet for patie nts provided by the fiction and nonfiction author ([employer]) can be rev iewed at: https://www.fda .gov/m edia/260312/sam nloadA fact sheet for Health Care providers is provided by the fiction and nonfiction author ([employer]) and can be reviewed at: https://www.fda .gov/m edia/289649/sam nload Influenza A and Influenza B neg ative results should be considered presumptive in samples that arrieta ve a positive SARS-C oV-2 result. If co-infection wi th influenza A or influenza B vir us is suspected in sa mples with a positive SARS-CoV-2 resu lts, the sample shou ld be re-tested with another approve d influenza test. This assay has been authorized by t jacobo FDA for use only un selene Emergency Use Authorization ( EUA) in laboratories that have been CLIA-certified to perform moderate-comple xity and high-comple xity tests. The Microbiology Laboratory at [facility], CLIA Accreditation #[id number] and CAP Accreditation #[id number], verif ied the performance characteristics of this assay. Int ernal controls are us ed to monitor all sta ges of the test proces s. [facility] HospitalLipase2021-09-11 06:43:17 Test Item Value Reference Range Interpretation Comments Lipase Lvl (test code = 6165) 21 U/L 13-60 [facility] HospitalAmylase2021-09-11 06:43:16 Test Item Value Reference Range Interpretation Comments Amylase Lvl (test code = 4806) 58 U/L 28-100 [facility]
[2021-10-30] MEDS ORDERED: MORPHINE 4 MG/ML SYR ONE (21:45)
[2021-10-30] MEDS ORDERED: ONDANSETRON 4 MG/2 ML VIAL ONE (21:45)
[2021-10-30] MEDS ORDERED: NA CHLORIDE 0.9% 1,000 ML ONE (21:46)
[2021-10-30 22:01] LABS: Absolute Lymphocytes (CBC) 0.7 K/uL (0.7-4.9); Hematocrit 37.8 % (36.0-45.0); Lymphocytes % 6.2 % (15.3-44.8); MCV 88.6 fL (80-100); RBC Red Blood Cell Count 4.26 M/uL (3.86-4.86)
[2021-10-30 22:24] LABS: Albumin 3.1 g/dL (3.4-5.0); Potassium 3.5 mmol/L (3.5-5.1); Protein, Total 7.6 g/dL (6.4-8.2)
[2021-10-30 22:35] LABS: Specific Gravity 1.014 (1.005-1.030); Urine Bacteria 20-50 /HPF (<20); Urine Bilirubin NEGATIVE (Negative); Urine Blood 2+ (Negative); Urine Clarity Extremely Turbid (Clear); Urine Color Light-Orange (Yellow); Urine Glucose NEGATIVE (Negative); Urine Mucus Slight /HPF (None Seen); Urine Protein 1+ (Negative); Urine RBC 21-50 /HPF (None Seen); Urine Urobilinogen Normal (Normal)
[2021-10-30] MEDS ORDERED: NA CHLORIDE 0.9% 50 ML ONE (23:50)
[2021-10-30] MEDS ORDERED: CEFTRIAXONE 1000 MG/VIAL ONE (23:50)
--- NOTE | 2021-10-31 00:03 | ER ---
Nurse's Notes [facility] Name: Kaila Suarez Age: 36 yrs Sex: Female : 1985 Arrival Date: 10/30/2021 Time: 20:06 Bed 18 Private MD: Diagnosis: UTI/ Urinary tract infection, site not specified Presentation: 10/30 20:28 Chief complaint: Patient states: Pt reports left flank pain, left lower abdominal pain. kb3 Pt reports less urine in urostomy bag today with darkened color and foul odor. Coronavirus screen: Vaccine status: Patient reports receiving the 2nd dose of the covid vaccine. Client denies travel out of the [place] in the last 14 days. Ebola Screen: Patient negative for fever greater than or equal to 101.5 degrees Fahrenheit, and additional compatible Ebola Virus Disease symptoms Patient denies exposure to infectious person. Patient denies travel to an Ebola-affected area in the 21 days before illness onset. Initial Sepsis Screen: Does the patient meet any 2 criteria? No. Patient's initial sepsis screen is negative. Does the patient have a suspected source of infection? No. Patient's initial sepsis screen is negative. Risk Assessment: Do you want to hurt yourself or someone else? Patient reports no desire to harm self or others. Onset of symptoms was October 29, 2021. 20:28 Method Of Arrival: Ambulatory kb3 20:28 Acuity: LIBORIO 3 kb3 Triage Assessment: 20:31 General: Appears in no apparent distress. uncomfortable, Behavior is calm, cooperative. kb3 Pain: Complains of pain in suprapubic area and left lower quadrant Pain radiates to left low back Pain currently is 8 out of 10 on a pain scale. Quality of pain is described as sharp. GI: Reports lower abdominal pain, nausea. 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 - Social history:: Smoking status: Patient denies any tobacco usage or history of. Screenin:39 Abuse screen: Denies threats or abuse. Denies injuries from another. ha1 20:39 Nutritional screening: No deficits noted. Tuberculosis screening: No symptoms or risk ha1 factors identified. Fall Risk None identified. Gait- Normal/Bed Rest/Wheelchair (0 pts). Assessment: 21:03 General: Appears ill, Behavior is calm, cooperative. Pain: Complains of pain in abdomen ha1 Pain radiates to back. Pain: Pain currently is 9 out of 10 on a pain scale. Neuro: Level of Consciousness is awake, alert, obeys commands, Oriented to person, place, time, situation, Speech is normal. Cardiovascular: Patient's skin is warm and dry. Respiratory: Airway is patent Trachea midline Respiratory effort is even, unlabored, Respiratory pattern is regular, symmetrical. GI: Bowel sounds present X 4 quads. : Urine is cloudy. 22:00 Reassessment: Patient and/or family updated on plan of care and expected duration. Pain ha1 level reassessed. Patient is alert, oriented x 3, equal unlabored respirations, skin warm/dry/pink. 23:55 Reassessment: Patient and/or family updated on plan of care and expected duration. Pain ha1 level reassessed. Patient is alert, oriented x 3, equal unlabored respirations, skin warm/dry/pink. pain /. 10/31 00:31 Reassessment: Patient and/or family updated on plan of care and expected duration. Pain ha1 level reassessed. Patient is alert, oriented x 3, equal unlabored respirations, skin warm/dry/pink. being discharged. pain 05/02. Vital Signs: 10/30 20:28 BP 137 / 93; Pulse 95; Resp 20; Temp 98.7; Pulse Ox 97% ; Weight 90.72 kg; Height 5 ft. kb3 0 in. (152.40 cm); Pain 8/; 21:06 BP 117 / 61; Pulse 74; Resp 17 S; Temp 98.7(O); Pulse Ox 98% on R/A; Pain 8/10; ha1 21:31 Pulse Ox 95% on 2 lpm NC; kd3 22:07 BP 114 / 56; Pulse 75; Resp 17 S; Pulse Ox 100% on R/A; ha1 23:00 BP 113 / 63; Pulse 74; Resp 17 S; Pulse Ox 100% on R/A; ha1 23:49 BP 122 / 66; Pulse 75; Resp 17 S; Pulse Ox 100% on R/A; ha1 08 00:25 BP 117 / 87; Pulse 70; Resp 16 S; Pulse Ox 100% on R/A; ha1 10/30 20:28 Body Mass Index 39.06 (90.72 kg, 152.40 cm) kb3 ED Course: 10/30 20:06 Patient arrived in ED. mr 20:16 Hugh Nettles, STEEL WHEEL ENGRAVER is PHCP. pm1 20:16 Jaren Anne MD is Attending Physician. pm1 20:31 Triage completed. kb3 20:31 Arm band placed on right wrist. kb3 20:39 Janie Alva, LAMONT is Primary Nurse. ha1 20:39 Patient has correct armband on for positive identification. Placed in gown. Bed in low ha1 position. Call light in reach. Side rails up X 1. 22:04 CMP Sent. ha1 22:04 Lipase Sent. ha1 22:11 UA Sent. kd3 10/31 00:28 No provider procedures requiring assistance completed. IV discontinued, intact, ha1 bleeding controlled, No redness/swelling at site. Pressure dressing applied. Administered Medications: 10/30 22:13 Drug: morphine 4 mg Route: IVP; Infused Over: 4 mins; Site: right upper arm; ha1 22:35 Follow up: Response: No adverse reaction; Pain is decreased; RASS: Alert and Calm (0) ha1 22:13 Drug: Zofran (Ondansetron) 4 mg Route: IVP; Site: right upper arm; ha1 22:35 Follow up: Response: No adverse reaction ha1 22:14 Drug: NS 0.9% 1000 ml Route: IV; Rate: 1 bolus; Site: right upper arm; ha1 23:48 Drug: Rocephin (cefTRIAXone) 1 grams Route: IV; Rate: calculated rate; Site: [facility]; 10/31 00:28 Follow up: Response: No adverse reaction; IV Status: Completed infusion; IV Intake: [id number] 00:17 Drug: morphine 4 mg {Note: RR 16 pain at 8/10.} Route: IVP; Infused Over: 4 mins; Site: [facility]; 00:28 Follow up: Response: No adverse reaction; Pain is decreased; RASS: Alert and Calm (0) ha1 Medication: 00:30 VIS not applicable for this client. ha1 Intake: 00:28 IV: 50ml; Total: 50ml. ha1 Outcome: 00:02 Discharge ordered by MD. pm1 00:29 Discharged to home ambulatory. ha1 00:29 Condition: stable 00:29 Discharge instructions given to patient, Instructed on discharge instructions, follow up and referral plans. medication usage, Demonstrated understanding of instructions, follow-up care, medications, Prescriptions given X 2. 00:34 Patient left the ED. ha1 Signatures: Shelbie Cardenas YoonHugh, STEEL WHEEL ENGRAVER STEEL WHEEL ENGRAVER pm1 Corina Berg, RN RN kd3 Janie Alva, RN RN ha1 Hollie Nguyen, RN RN kb3 Corrections: (The following items were deleted from the chart) 10/30 23:33 22:04 UA MICROSCOPIC+U.LAB.BRZ drawn and sent. 1 EDMS 10/31 00:37 00:31 Reassessment: Patient and/or family updated on plan of care and expected ha1 duration. Pain level reassessed. Patient is alert, oriented x 3, equal unlabored respirations, skin warm/dry/pink. being discharged ha1
--- NOTE | 2021-10-31 00:04 | EDPHYS ---
Physician Documentation [facility] Name: Kaila Suarez Age: 36 yrs Sex: Female : 1985 Arrival Date: 10/30/2021 Time: 20:06 Bed 18 Private MD: ED Physician Jaren Anne HPI: 10/30 20:27 This 36 yrs old Female presents to ER via Ambulatory with complaints of pm1 Abdominal Pain, Back Pain. 20:27 The patient presents with abdominal pain right flank pain. Onset: The symptoms/episode pm1 began/occurred 2 day(s) ago. Associated signs and symptoms: Pertinent negatives: nausea, vomiting, and diarrhea, fever. The symptoms are described as achy. Modifying factors: The symptoms are alleviated by nothing, the symptoms are aggravated by nothing. Severity of pain: in the emergency department the pain is actually worse. The patient has experienced similar episodes in the past, multiple times, today's symptoms are similar, to previous UTI. The patient has not recently seen a physician. 20:27 36-year-old female with history of cervical cancer requiring extensive pelvic surgery pm1 resulting in colostomy and urostomy. Patient reports history of multiple urinary tract infections and it feels similar to her prior UTIs. Last time she had a urinary tract infection was at the beginning of this year, March or April. 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 - Social history:: Smoking status: Patient denies any tobacco usage or history of. ROS: 20:27 Constitutional: Negative for fever, chills, and weight loss, Cardiovascular: Negative pm1 for chest pain, palpitations, and edema, Respiratory: Negative for shortness of breath, cough, wheezing, and pleuritic chest pain. 20:27 MS/Extremity: Negative for injury and deformity, Skin: Negative for injury, rash, and discoloration, Neuro: Negative for headache, weakness, numbness, tingling, and seizure. 20:27 Abdomen/GI: Positive for of the right lower quadrant, Negative for nausea, vomiting, and diarrhea. 20:27 Back: Positive for flank pain, on the right. 20:27 All other systems are negative. Exam: 20:27 Constitutional: This is a well developed, well nourished patient who is awake, alert, pm1 and in no acute distress. Head/Face: Normocephalic, atraumatic. 20:27 Skin: Warm, dry with normal turgor. Normal color with no rashes, no lesions, and no evidence of cellulitis. MS/ Extremity: Pulses equal, no cyanosis. Neurovascular intact. Full, normal range of motion. 20:27 Eyes: Exam is negative for acute changes, Periorbital structures: appear normal, Pupils: no acute changes, Extraocular movements: no acute changes, Conjunctiva: no acute changes, no injection. 20:27 Cardiovascular: Exam negative for acute changes, Rate: normal, Rhythm: regular, Pulses: no pulse deficits are appreciated. 20:27 Respiratory: Exam negative for acute changes, respiratory distress, shortness of breath, Breath sounds: are clear throughout. 20:27 Abdomen/GI: Inspection: abdomen appears normal, Palpation: abdomen is soft and non-tender, in all quadrants. 20:27 Back: pain, that is mild, of the right low back. 20:27 Neuro: Exam negative for acute changes, Orientation: is normal, Mentation: is normal, Motor: is normal, moves all fours. Vital Signs: 20:28 BP 137 / 93; Pulse 95; Resp 20; Temp 98.7; Pulse Ox 97% ; Weight 90.72 kg; Height 5 ft. kb3 0 in. (152.40 cm); Pain 8/10; 21:06 BP 117 / 61; Pulse 74; Resp 17 S; Temp 98.7(O); Pulse Ox 98% on R/A; Pain 8/10; ha1 21:31 Pulse Ox 95% on 2 lpm NC; kd3 22:07 BP 114 / 56; Pulse 75; Resp 17 S; Pulse Ox 100% on R/A; ha1 23:00 BP 113 / 63; Pulse 74; Resp 17 S; Pulse Ox 100% on R/A; ha1 23:49 BP 122 / 66; Pulse 75; Resp 17 S; Pulse Ox 100% on R/A; ha1 10/31 00:25 BP 117 / 87; Pulse 70; Resp 16 S; Pulse Ox 100% on R/A; ha1 10/30 20:28 Body Mass Index 39.06 (90.72 kg, 152.40 cm) kb3 MDM: 10/30 20:27 Patient medically screened. pm1 10/31 00:02 Data reviewed: vital signs. Data interpreted: Pulse oximetry: on room air is 100 %. pm1 Interpretation: normal. Counseling: I had a detailed discussion with the patient and/or guardian regarding: the historical points, exam findings, and any diagnostic results supporting the discharge/admit diagnosis, lab results, the need for outpatient follow up, to return to the emergency department if symptoms worsen or persist or if there are any questions or concerns that arise at home. 10/30 20:26 Order name: CBC with Diff; Complete Time: 22:08 pm1 10/30 20:26 Order name: CMP; Complete Time: 23:18 pm1 10/30 20:26 Order name: Lipase; Complete Time: 23:18 pm1 10/30 21:55 Order name: UA; Complete Time: 23:18 ds4 10/30 22:38 Order name: Urine Culture EDAZ 10/30 20:26 Order name: IV Saline Lock; Complete Time: 22:04 pm1 10/30 20:26 Order name: Labs collected and sent; Complete Time: 22:04 pm1 10/30 20:26 Order name: Urine Dipstick-Ancillary (obtain specimen); Complete Time: 23:38 pm1 Administered Medications: 10/30 22:13 Drug: morphine 4 mg Route: IVP; Infused Over: 4 mins; Site: right upper arm; ha1 22:35 Follow up: Response: No adverse reaction; Pain is decreased; RASS: Alert and Calm (0) ha1 22:13 Drug: Zofran (Ondansetron) 4 mg Route: IVP; Site: right upper arm; ha1 22:35 Follow up: Response: No adverse reaction ha1 22:14 Drug: NS 0.9% 1000 ml Route: IV; Rate: 1 bolus; Site: right upper arm; ha1 23:48 Drug: Rocephin (cefTRIAXone) 1 grams Route: IV; Rate: calculated rate; Site: left upper ha1 arm; 10/31 00:28 Follow up: Response: No adverse reaction; IV Status: Completed infusion; IV Intake: [id number] 00:17 Drug: morphine 4 mg {Note: RR 16 pain at 8/10.} Route: IVP; Infused Over: 4 mins; Site: ha1 right upper arm; 00:28 Follow up: Response: No adverse reaction; Pain is decreased; RASS: Alert and Calm (0) ha1 Disposition: 03:19 Co-signature as Attending Physician, Jaren Anne MD. rn Disposition Summary: 10/31/21 00:02 Discharge Ordered Location: Home pm1 Problem: new pm1 Symptoms: have improved pm1 Condition: Stable pm1 Diagnosis - UTI/ Urinary tract infection, site not specified pm1 Followup: pm1 - With: Emergency Department - When: As needed - Reason: Worsening of condition Followup: pm1 - With: Private Physician - When: 2 - 3 days - Reason: Recheck today's complaints, Continuance of care, Re-evaluation by your physician Discharge Instructions: - Discharge Summary Sheet pm1 - Urinary Tract Infection, Adult pm1 Forms: - Medication Reconciliation Form pm1 - Thank You Letter pm1 - Antibiotic Education pm1 - Prescription Opioid Use pm1 Prescriptions: - Tramadol 50 mg Oral Tablet - take 1 tablet by ORAL route every 8 hours as needed; 12 tablet; Refills: 0, pm1 Product Selection Permitted - cefpodoxime 200 mg Oral Tablet - take 1 tablet by ORAL route every 12 hours for 10 days with food; 20 tablet; pm1 Refills: 0, Product Selection Permitted Signatures: Dispatcher [employer] Jaren Pelayo MD MD rn Marinas, Patrick, GARRY TIE PRESSER pm1 Priyanka Murcia PA PA sb3 Janie Alva RN RN ha1 Hollie Nguyen RN RN kb3 Corrections: (The following items were deleted from the chart) 10/30 23:33 20:27 UA MICROSCOPIC+U.LAB.BRZ ordered. [facility]
[2021-10-31] MEDS ORDERED: MORPHINE 4 MG/ML SYR ONE (00:13)
[2021-10-31 04:41] VITALS: TEMP 98.7
[2021-10-31 04:49] VITALS: O2SAT 100
[2021-10-31 04:58] VITALS: BP 117/87
== END 2021-10-31 00:34 | disposition home or self-care (01) ==
LOC: ER 20:00
DX: N39.0 Urinary tract infection, site not specified (principal); Z85.41 Personal history of malignant neoplasm of cervix uteri; Z88.5 Allergy status to narcotic agent
CPT/HCPCS: 96365; 87088; 85025; 81001; 87086; 36415; 87077; 87186; 83690; 80053; 96375; 99283; J7030; J2405